=== PATIENT | male | born 1930 | race Caucasian/White ===

== ENCOUNTER 2016-12-11 09:47 | Emergency (ER) | payer MEDICARE, OTHER ==
[~2016-12-11] VITALS: Ht 172.7 cm; Wt 59.7 kg
[2016-12-11 09:49] VITALS: Ht 172.7 cm; Wt 59.7 kg
--- OUTSIDE RECORDS SUMMARY | 2016-12-11 09:51 | XMS REPORT | Referral Summary ---
Author Author [facility] Organization [facility] Address Unknown Phone Unavailable Care Team Providers Care Dining Room Coordinator Name Role Phone Chaim Roy Primary Care Physician [phone] Encounter [facility] Date(s): 03/29/16 - 03/29/16 [facility] [address] [place] [address] Discharge Diagnosis: Thrombopenia Discharge Disposition: 01-Home or Self Care Attending Physician: Keith Alcocer DO Admitting Physician: Keith Alcocer DO Vital Signs Most recent to 1 2 oldest [Reference Range]: Temperature Temporal 36.2 degC Artery [36.3-37.8 *LOW* degC] (03/29/16 9:04 AM) Peripheral Pulse 44 bpm Rate [60-100 bpm] *LOW* (03/29/16 9:04 AM) Heart Rate Monitored 59 bpm [60-100 bpm] *LOW* (03/29/16 11:15 AM) Respiratory Rate 18 br/min [14-20 br/min] (03/29/16 11:15 AM) Blood Pressure 119/55 mmHg [90-140/60-90 mmHg] (03/29/16 11:15 AM) Mean Arterial 63 mmHg 63 mmHg Pressure, Cuff (03/29/16 11:00 AM) (03/29/16 11:00 AM) SpO2 98 % (03/29/16 11:15 AM) Problem List Condition Effective Dates Status Health Status Informant Actinic keratosis Active (disorder)(Confirmed ) Senile Active ecchymosis(Confirmed ) 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, 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) Seborrheic Active keratosis(Confirmed) Solar Active degeneration(Confirm ed) Spontaneous Active ecchymosis (finding)(Confirmed) Allergies, Adverse Reactions, Alerts No Known Medication Allergies Medications allopurinol 300 mg oral tablet 300 mg 1 tabs, Oral, Daily, 0 Refill(s) Start Date: 12/06/15 Status: Ordered calcium gluconate 500 mg oral tablet 1 tabs, Oral, Daily Start Date: 07/01/14 Status: Ordered Eliquis 5 mg oral tablet 5 mg 1 tabs, Oral, BID, # 60 tabs, 0 Refill(s) Start Date: 08/16/15 Status: Ordered furosemide 20 mg oral tablet 20 mg 1 tabs, Oral, Daily, # 30 tabs, 0 Refill(s) Start Date: 08/16/15 Status: Ordered losartan 50 mg oral tablet 50 mg 1 tabs, Oral, Daily, 0 Refill(s) Start Date: 12/06/15 Status: Ordered Metoprolol Tartrate 50 mg oral tablet See Instructions, TAKE ONE-HALF TABLET BY MOUTH TWICE DAILY, # 100 tabs, 3 Refill(s), eRx: [facility], TAKE ONE-HALF TABLET BY MOUTH TWICE DAILY Start Date: 07/07/15 Status: Ordered multivitamin 1 tabs, Oral, Daily Start Date: 07/01/14 Status: Ordered pravastatin 10 mg oral tablet See Instructions, TAKE ONE TABLET BY MOUTH ONCE DAILY, # 90 tabs, 1 Refill(s), eRx: [facility], TAKE ONE TABLET BY MOUTH ONCE DAILY Start Date: 02/24/16 Status: Ordered thyroid desiccated 60 mg oral tablet 1 tabs, Oral, Daily Start Date: 07/01/14 Status: Ordered Vitamin C 500 mg oral tablet 1 tabs, Oral, Daily Start Date: 07/01/14 Status: Ordered Results Hematology Most recent to 1 oldest [Reference Range]: WBC [4.8-10.8 5.5 10*3/uL 10*3/uL] (03/29/16 9:25 AM) RBC [4.60-6.20] 3.61 *LOW* (03/29/16 9:25 AM) Hgb [14.0-18.0 10.6 gm/dL gm/dL] *LOW* (03/29/16 9:25 AM) Hct [42.0-52.0 %] 32.5 % *LOW* (03/29/16 9:25 AM) MCV [82.0-99.0 fL] 90.0 fL (03/29/16 9:25 AM) MCH [27.0-32.0 pg] 29.4 pg (03/29/16 9:25 AM) MCHC [32.0-36.0 32.6 gm/dL gm/dL] (03/29/16 9:25 AM) RDW [11.5-14.5 %] 19.9 % *HI* (03/29/16 9:25 AM) Platelet [150-400 30 10*3/uL 10*3/uL] *LOW* (03/29/16 9:25 AM) MPV [9.4-12.3 fL] 10.0 fL (03/29/16 9:25 AM) Immature 0.7 % Granulocytes (03/29/16:25 AM) [0.0-1.0 %] Neutrophils [51-75 77 % %] *HI* (03/29/16 9:25 AM) Lymphocytes [20-46 11 % %] *LOW* (03/29/16 9:25 AM) Monocytes [4-11 %] 9 % (03/29/16 9:25 AM) Eosinophils [0-4 %] 2 % (03/29/16 9:25 AM) Basophils [0-2 %] 1 % (03/29/16 9:25 AM) Neutro Absolute 4.28 10*3 [1.90-7.00 10*3] (03/29/16 9:25 AM) Lymph Absolute 0.58 10*3 [0.80-3.30 10*3] *LOW* (03/29/16 9:25 AM) Haskell Absolute 0.49 10*3 [0.30-1.00 10*3] (03/29/16 9:25 AM) Eos Absolute 0.10 10*3 [0.00-0.50 10*3] (03/29/16 9:25 AM) Baso Absolute 0.04 10*3 [0.00-0.20 10*3] (03/29/16 9:25 AM) Nucleated RBC 0.0 /100 WBC Automated [0 /100 (03/29/16 9:25 AM) WBC] Differential Scanned Slide (03/29/16 9:25 AM) Immunizations Vaccine Date Refusal Reason pneumococcal 23-polyvalent vaccine 06/07/05 pneumococcal 23-polyvalent vaccine 06/19/03 Procedures Procedure Date Related Diagnosis Body Site Biopsy Bone Marrow1 03/29/16 Procedure with Anesthesia2 03/29/16 CT R acetabular fx3 10/08/08 S/P colonoscopy4 08/16/07 tonsilectomy 1936 1auto-populated from documented surgical case 2auto-populated from documented surgical case 3[facility] - Acc 10/07/08 rec 4WNL; repeat 10 years Social History Social History Type Response Smoking Status Never smoker Assessment and Plan No data available for this section
--- OUTSIDE RECORDS SUMMARY | 2016-12-11 09:52 | XMS REPORT | Summary of Care ---
Author Author Griffin Winn M.D. Organization Unknown Address [address] [place] [phone] Phone Unavailable Care Team Providers Care Sports Photographer Name Role Phone Pepe Esparza ANAT Unavailable Unavailable Unavailable Functional Status Functional Status Health Issues* Name Dates Details Functional status health issues are not documented Status: Cognitive Status Health Issues* Name Dates Details Cognitive status health issues are not documented Status: Problems Name Dates Details Pulmonary hypertension (416.8, I27.0) Status: Active Medications Name Dates Details Medication not documented Allergies and Adverse Reactions Name Dates Details Allergy history not documented Status: Procedures Procedure Dates Details Procedures not documented Immunization Name Dates Details Immunizations not documented Social History Smoking Status* Unknown if ever smoked Vital Signs Date Test Result Details No Known Vitals to report Results Date Description Value Details 09:51 CBC w/ Auto Diff 7150 Comments: Manual differential indicated. WBC 9.3 K/uL (Better) Range: 4.5-11.0 RBC 3.48 mil/uL (Below low threshold) Range: 4.20-5.40 HGB 11.2 g/dL (Below low threshold) Range: 14.0-18.0 HCT 30.0 % (Below low threshold) Range: 42.0-53.0 MCV 86.2 fL (Better) Range: 80.0-99.0 MCH 32.1 pg (Better) Range: 27.3-32.5 MCHC 37.3 % (Above high threshold) Range: 32.0-36.0 RDW 17.9 % (Above high threshold) Range: 11.6-14.8 PLATELETS 82 K/uL (Below low threshold) Range: 150-400 MPV 9.0 fL (Better) Range: 6.0-11.0 10:10 Comprehensive Metabolic Panel 1212 SODIUM 138 mmol/L (Better) Range: 133-144 POTASSIUM 4.5 mmol/L (Better) Range: 3.5-5.1 CHLORIDE 105 mmol/L (Better) Range: 98-110 CARBON DIOXIDE 23.9 mmol/L (Better) Range: 23.0-33.0 ANION GAP 9 mmol/L (Better) Range: 6-16 BUN 38 mg/dL (Above high threshold) Range: 7-18 CREATININE, SERUM 1.39 mg/dL (Above high threshold) Range: 0.70-1.30 Comments: Please note new reference ranges effective 2015.----- BUN:CREATININE RATIO 27 (Better) EST GFR, 59 ml/min (Below low threshold) Range: >60 EST GFR, NON-AFR [facility] [place] 48 ml/min (Below low threshold) Range: >60 Comments: EST GFR is reported in ml/min per 1.73 m2 of body surface area. For -Eritrean, please multiple result by 1.2.----- GLUCOSE 104 mg/dL (Above high threshold) Range: 70-100 ALK PHOSPHATASE 88 U/L (Better) Range: 46-116 TOTAL BILIRUBIN 1.40 mg/dL (Above high threshold) Range: 0.20-1.00 AST 22 U/L (Better) Range: 8-35 ALT 26 U/L (Better) Range: 16-63 Comments: Please note new reference ranges. Effective 10/22/2014.----- ALBUMIN 3.6 g/dL (Better) Range: 3.4-5.0 TOTAL PROTEIN 6.3 g/dL (Below low threshold) Range: 6.4-8.2 A/G RATIO 1.3 units (Better) Range: 1.0-1.8 CALCIUM 8.5 mg/dL (Better) Range: 8.5-10.1 10:18 Manual Differential 7400 SEGS 79 % (Better) Range: 37-80 BANDS 2 % (Better) Range: 0-7 LYMPH 12 % (Below low threshold) Range: 13-50 MONO 4 % (Better) Range: 0-12 EOSIN 1 % (Better) Range: 0-7 BASO 0 % (Better) Range: 0-3 OFE LYMPH 0 % (Better) Range: 0-0 META 1 % (Above high threshold) Range: 0-0 MYELO 1 % (Above high threshold) Range: 0-0 PRO 0 % (Better) Range: 0-0 BLAST 0 % (Better) Range: 0-0 NUC RBC 0 /100 WBC (Better) Range: 0-0 SMUDGE 0 /100 WBC (Better) PLATELET Decreased (Abnormal) Range: Adequate ANISO Slight (Better) SPHERO Present (Better) 10:49 ECG/ EKG CP - Electro CardioGram ECG/ EKG Cardiology Read ECG waiting for interpretation, click ImageLink button to view/confirm the study. (Better) 11:12 THYROID STIM. HORMONE 3602 THYROID STIM. HORMONE 0.212 uIU/mL (Below low threshold) Range: 0.550- 4.780 Comments: Verified by Repeat AnalysisPLEASE NOTE: Patients undergoing fuorescein dye angiography within the last 72 hours can produce falsely depressed TSH values with current methodology.\[id number]\No established reference ranges for infants and children <2 years of ageNo established reference ranges for infants and children <2 years of age----- 11:23 XRay CHEST-PA & LAT Comments: Exam Date: 02/11/2015 11: 12Dictation Date: 02/11/2015 11:23 X CHEST PA & LAT (Better) Plan of Care Planned Observations* Name Dates Details Planned Goals not documented Goal Planned Encounters* Appointment; Provider: Griffin Winn On 13:00 Instructions * Instructions not documented Encounters No Encounter data documented Encounter Diagnosis: Problem not documented On
--- OUTSIDE RECORDS SUMMARY | 2016-12-11 09:52 | XMS REPORT | Summary of Care ---
Author Author Manuela Morrison, Donis Organization Unknown Address Unknown Phone Unavailable Care Team Providers Care Flower Pot Press Operator Name Role Phone Yudi Yarbrough Unavailable Hannah Roy M.D., Donis Roy M.D., Aaron Unavailable Unavailable Tatum Morrison, Michelle Unavailable Unavailable Donis Roy Unavailable Unavailable Unavailable Unavailable Functional Status Name Dates Details Functional status health issues are not documented Status: Name Dates Details Cognitive status health issues are not documented Status: Problems Name Dates Details Left-sided epistaxis (784.7, R04.0) Status: Active Right-sided epistaxis (784.7, R04.0) Status: Active Hodgkin disease (201.90, C81.90) Status: Active Low back pain (724.2, M54.5) Status: Active Anemia (285.9, D64.9) Status: Active Atherosclerosis (440.9, I70.90) Status: Active Thrombocytopenia (287.5, D69.6) Status: Active Insomnia (780.52, G47.00) Status: Active Screening PSA (prostate specific antigen) (V76.44, Z12.5) Status: Active Congestive heart failure (CHF) (428.0, I50.9) Status: Active Atrial fibrillation (427.31, I48.91) Status: Active Chronic kidney disease (585.9, N18.9) Status: Active Hypertension (401.9, I10) Status: Active Swelling of face (784.2, R22.0) Status: Active Swelling of hand (729.81, M79.89) Status: Active Fatigue (780.79, R53.83) Status: Active Dyspnea (786.09, R06.00) Status: Active Edema of face (782.3, R60.0) Status: Active Arm edema (782.3, R60.0) Status: Active 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, Z95.0) Status: Active Thyroid disease (246.9, E07.9) Status: Active Left-sided chest wall pain (786.52, R07.89) Status: Active Chest pain (786.50, R07.9) Status: Active Edema extremities (782.3, R60.0) Status: Active Hypocalcemia (275.41, E83.51) Status: Active Diarrhea (787.91, R19.7) Status: Active Fever (780.60, R50.9) Status: Active Hypocalcemia (275.41, E83.51) Status: Active Gout (274.9, M10.9) Status: Active Upper GI bleed (578.9, K92.2) Status: Active Bilateral pleural effusion (511.9, J90) Status: Active Obstructive sleep apnea syndrome, severe (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 Quantity: 60 * Start Active [place] Thyroid 60 MG Oral Tablet TAKE TWO AND ONE-HALF TABLETS BY MOUTH DAILY * Quantity: 180 Refills: 11 Donis Roy M.D. * Start 23-Mar-2016 Active Pravastatin Sodium 10 MG Oral Tablet TAKE 1 TABLET DAILY. * Refills: 0 * Start Active Multi Vitamin Mens Oral Tablet TAKE 1 TABLET DAILY. * Refills: 0 Griffin Winn M.D. * Start Active Losartan Potassium 50 MG Oral Tablet TAKE 1 TABLET DAILY. * Quantity: 90 Refills: 3 Donis Roy M.D. * Start 11-Jan-2016 Active Allopurinol 300 MG Oral Tablet Take 1 1/2 tabs daily. * Quantity: 135 Refills: 3 Aaron Roy M.D. * Start 11-Jan-2016 Active Eliquis 5 MG Oral Tablet Take twice daily * Quantity: 60 Refills: 6 Donis Roy M.D. * Start 11-Jan-2016 Active Furosemide 20 MG Oral Tablet Take 1-2 tabs po q day as needed * Quantity: 60 Refills: 3 Manuela M.DDonis Collins * Start 11-Jan-2016 Active Calcium Carbonate 500 (200 Ca) MG Oral Wafer Take 2 daily * Refills: 0 Shacklefords M.DDonis Collins * Start 11-Jan-2016 Active Supplies Auto CPAP 8-12 cm H2O Permanent use Dx:G47.33 AirSense 10 with heated tubing/ humidity mask headgear filter H2O chamber tubing chinstrap * Quantity: 1 Refills: 0 Andres P.A., Yudi * Start Active Supplies Resmed S10 AirCurve 20/15 cm H2O, Permanent use, 327.23, Heated humidity, mask, headgear, filters, heated tubing, water chamber, chinstrap * Quantity: 1 Refills: 0 Andres P.A., Yudi * Start 03-May-2016 Active Pantoprazole Sodium 40 MG Oral Tablet Delayed Release TAKE 1 TABLET BY MOUTH DAILY * Quantity: 30 Refills: 11 Manuela M.D.Donis * Start 18-Aug-2016 Active Imodium A-D 2 MG Oral Tablet TAKE 2 TABLETS INITIALLY, FOLLOWED BY 1 TABLET AFTER EACH LOOSE BOWEL MOVEMENT. DO NOT EXCEED 8 TABLETS/DAY. * Refills: 0 Shacklefords M.Donis Bermudez * Start 18-Aug-2016 Active Acetaminophen 325 MG Oral Tablet Take 2 tabs po every 4 hours PRN * Refills: 0 Manuela M.DDonis Collins * Start 18-Aug-2016 Active Allergies and Adverse Reactions Name Dates Details Flecainide Acetate TABS (Allergy) Status: Active Past Medical History Name Dates Details History of aortic valve stenosis (V12.59, Z86.79) Status: Resolved History of fracture of left hip (V15.51, Z87.81) Status: Resolved History of malignant neoplasm (V10.90, Z85.9) Status: Resolved 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, 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: Resolved History of shortness of breath (V13.89, Z87.898) Status: Resolved Procedures Procedure Dates Details History of Hernia Repair History of Heart Valve Replacement History of Hip Repair History of Colonoscopy History of Pacemaker Placement History of Esophagogastroduodenoscopy URIC ACID 1155 Ordered: 24-Jul-2016 Comprehensive Metabolic Panel 1212 Ordered: 05-Sep-2016 URIC ACID 1155 Ordered: 05-Sep-2016 Immunization Name Dates Details Fluzone High-Dose SUSP on: 18-Jul-2016 Fluzone High-Dose 0.5 ML Intramuscular Suspension Prefilled Syringe Lot #: [id number] on: 18-Jul-2016 Family History Name Dates Details Family history of sleep apnea (V19.8, Z82.0) Status: Active Name Dates Details Family history of lung cancer (V16.1, Z80.1) Status: Active Name Dates Details Family history of cerebrovascular accident (CVA) (V17.1, Z82.3) Status: Active Name Dates Details Family history of Bone cancer (170.9, C41.9) Status: Active Social History Name Dates Details - Status: Name Dates Details Never smoker Vital Signs Date Test Result Details 05-Sep-2016 10:07 BP Systolic 98 mm[Hg] Status: Comments: Location: LUE; Position: Sitting BP Diastolic 58 mm[Hg] Status: Comments: Location: LUE; Position: Sitting Temperature 98.2 f Status: Heart Rate 79 /min Status: Comments: Location: ; Weight 134 lb Status: Physical Findings 96 Status: Comments: O2 Saturation Body Mass Index Calculated 21.63 kg/m2 Status: Body Surface Area Calculated 1.69 m2 Status: 25-Aug-2016 09:33 BP Systolic 128 mm[Hg] Status: Comments: Location: ; Position: BP Diastolic 84 mm[Hg] Status: Comments: Location: ; Position: Heart Rate 74 /min Status: Comments: Location: ; Height 66 in Status: Weight 127 lb Status: Physical Findings 99 Status: Comments: O2 Saturation Body Mass Index Calculated 20.5 kg/m2 Status: Body Surface Area Calculated 1.65 m2 Status: 22-Aug-2016 11:19 BP Systolic 100 mm[Hg] Status: Comments: Location: ; Position: BP Diastolic 58 mm[Hg] Status: Comments: Location: ; Position: Heart Rate 62 /min Status: Comments: Location: ; Weight 125 lb Status: Physical Findings 93 Status: Comments: O2 Saturation Body Mass Index Calculated 20.18 kg/m2 Status: Body Surface Area Calculated 1.64 m2 Status: Results Date Description Value Details 08-Aug-2016 14:47 CBC w/ Manual Diff 7225 Comments: Critical result called to Allison by Lakshmi Cordova on 08/08/2016 at 2:51 PM (PLT)ORDER IN BOOK UNDER JULY WBC 8.2 K/uL Range: 4.5-11.0 RBC 3.44 mil/uL (Below low threshold) Range: 4.20-5.40 HGB 11.3 g/dL (Below low threshold) Range: 14.0-18.0 HCT 33.7 % (Below low threshold) Range: 42.0-53.0 MCV 97.9 fL Range: 80.0-99.0 MCH 32.8 pg (Above high threshold) Range: 27.3-32.5 MCHC 33.5 % Range: 32.0-36.0 RDW 21.0 % (Above high threshold) Range: 11.6-14.8 PLATELETS 31 K/uL (Low alert) Range: 150-400 MPV 8.2 fL Range: 6.0-11.0 NEUTRO 7.3 K/uL (Above high threshold) Range: 2.0-6.9 SEGS 91 % (Above high threshold) Range: 37-80 BANDS 2 % Range: 0-7 LYMPH 2 % (Below low threshold) Range: 13-50 MONO 5 % Range: 0-12 EOSIN 0 % Range: 0-7 BASO 0 % Range: 0-3 OFE LYMPH 0 % Range: 0-0 META 0 % Range: 0-0 MYELO 0 % Range: 0-0 PRO 0 % Range: 0-0 BLAST 0 % Range: 0-0 NUC RBC 0 /100 WBC Range: 0-0 SMUDGE 0 /100 WBC PLATELET Decreased (Abnormal) Range: Adequate ANISO Mod 22-Aug-2016 14:25 BASIC METABOLIC PROFILE 1210 SODIUM 139 mmol/L Range: 133-144 POTASSIUM 3.8 mmol/L Range: 3.5-5.1 CHLORIDE 101 mmol/L Range: 98-110 CARBON DIOXIDE 31.9 mmol/L Range: 23.0-33.0 ANION GAP 6 mmol/L Range: 6-16 BUN 48 mg/dL (Above high threshold) Range: 7-18 CREATININE, SERUM 1.39 mg/dL (Above high threshold) Range: 0.70-1.30 EST GFR, 58 ml/min (Below low threshold) Range: >60 EST GFR, NON-AFR [place] 48 ml/min (Below low threshold) Range: >60 Comments: EST GFR is reported in ml/min per 1.73 m2 of body surface area. ----- BUN:CREATININE RATIO 35 GLUCOSE 103 mg/dL (Above high threshold) Range: 70-100 CALCIUM 9.0 mg/dL Range: 8.5-10.1 14:25 URIC ACID 1155 URIC ACID 4.3 mg/dL Range: 2.6-7.2 14:42 Vitamin D, 25 - Hydroxy 3111 VITAMIN D, 25-HYDROXY 35 ng/mL Range: 30-100 15:27 CBC w/ Manual Diff 7225 Comments: ORDER IN BOOK UNDER AUGUST - MAKE SURE CALCIUM GETS ORDERED FOR 08/29/16 - ORDER IS BEING FAXED WBC 8.0 K/uL Range: 4.5-11.0 RBC 3.38 mil/uL (Below low threshold) Range: 4.20-5.40 HGB 10.8 g/dL (Below low threshold) Range: 14.0-18.0 HCT 31.9 % (Below low threshold) Range: 42.0-53.0 MCV 94.3 fL Range: 80.0-99.0 MCH 31.9 pg Range: 27.3-32.5 MCHC 33.8 % Range: 32.0-36.0 RDW 20.8 % (Above high threshold) Range: 11.6-14.8 PLATELETS 95 K/uL (Below low threshold) Range: 150-400 MPV 8.3 fL Range: 6.0-11.0 NEUTRO 6.1 K/uL Range: 2.0-6.9 SEGS 57 % Range: 37-80 BANDS 5 % Range: 0-7 LYMPH 22 % Range: 13-50 MONO 8 % Range: 0-12 EOSIN 3 % Range: 0-7 BASO 0 % Range: 0-3 OFE LYMPH 0 % Range: 0-0 META 3 % (Above high threshold) Range: 0-0 MYELO 2 % (Above high threshold) Range: 0-0 PRO 0 % Range: 0-0 BLAST 0 % Range: 0-0 NUC RBC 0 /100 WBC Range: 0-0 SMUDGE 0 /100 WBC PLATELET Decreased (Abnormal) Range: Adequate ANISO Marked HYPOCHRO Mod POLYCHRO Slight OVAL Present TEAR Present Plan of Care Name Dates Details Planned Observations Comprehensive Metabolic Panel 1212 On 02-Nov-2016 Intent URIC ACID 1155 On 02-Nov-2016 Intent Planned Goals not documented Planned Encounters Appointment; Provider: Donis Roy M.D. On 07-Nov-2016 10:00 Appointment; Provider: Tracy Alba A.P.R.N. On 10-Oct-2016 13:00 Instructions Name Dates Details Instructions not documented Encounters Appointment; Donis Roy M.D. Encounter Diagnosis: Problem not documented On 05-Sep-2016 10:00 Appointment; Yudi Campos P.A. Encounter Diagnosis: Problem not documented On 25-Aug-2016 09:30 Appointment; Donis Roy M.D. Encounter Diagnosis: Problem not documented On 23-Aug-2016 10:00 Appointment; Donis Roy M.D. Encounter Diagnosis: Problem not documented On 22-Aug-2016 11:00 Appointment; Donis Roy M.D. Encounter Diagnosis: Problem not documented On 24-Jul-2016 10:45 Appointment; Donis Roy M.D. Encounter Diagnosis: Problem not documented On 18-Jul-2016 07:45 Appointment; Griffin Winn M.D. Encounter Diagnosis: Problem not documented On 12-Jul-2016 13:30 Appointment; Griffin Winn M.D. Encounter Diagnosis: Problem not documented On 03-May-2016 13:30 Appointment; Aaron Roy M.D. Encounter Diagnosis: Problem not documented On 12-Apr-2016 10:30 Appointment; Aaron Roy M.D. Encounter Diagnosis: Problem not documented On 13-Mar-2016 15:30 Appointment; Donis Roy M.D. Encounter Diagnosis: Problem not documented On 14:45 Appointment; Griffin Winn M.D. Encounter Diagnosis: Problem not documented On 15:00 Appointment; Griffin Winn M.D. Encounter Diagnosis: Problem not documented On 15:15 Appointment; Donis Roy M.D. Encounter Diagnosis: Problem not documented On 11-Jan-2016 10:45 Appointment; Josep Dao M.D. Encounter Diagnosis: Problem not documented On 15-Nov-2015 14:45 Appointment; Griffin Winn M.D. Encounter Diagnosis: Problem not documented On 15-Apr-2015 10:30 Appointment; Griffin Winn M.D. Encounter Diagnosis: Problem not documented On 13:00
--- OUTSIDE RECORDS SUMMARY | 2016-12-11 09:52 | XMS REPORT | Summary of Care ---
Author Author Griffin Winn M.D. Organization Unknown Address [address], [place] [id number] Phone Unavailable Care Team Providers Care Translator Name Role Phone Tatum Morrison, O Unavailable Unavailable Pepe Esparza PP Unavailable Unavailable Unavailable Functional Status Functional Status Health Issues* Name Dates Details Functional status health issues are not documented Status: Cognitive Status Health Issues* Name Dates Details Cognitive status health issues are not documented Status: Problems Name Dates Details Pulmonary hypertension (416.8, I27.0) Status: Active Dyspnea (786.09, R06.00) Status: Active Medications Name Dates Details Losartan Potassium-HCTZ 50-12.5 MG Oral Tablet TAKE 1 TABLET DAILY. Griffin Winn M.D.* Started ActiveMetoprolol Tartrate 50 MG Oral Tablet TAKE 1/2 TABLET TWICE DAILY. * Refills: 0 Griffin Winn M.D.* Started ActiveArmour Thyroid 60 MG Oral Tablet TAKE 1 TABLET DAILY. * Refills: 0 Griffin Winn M.D.* Started ActivePravastatin Sodium 10 MG Oral Tablet TAKE 1 TABLET DAILY. * Refills: 0 Griffin Winn M.D.* Started ActiveAspirin 81 MG Oral Tablet TAKE ONE TABLET EVERY TWO DAYS * Refills: 0 Griffin Winn M.D.* Started ActiveMulti Vitamin Mens Oral Tablet TAKE 1 TABLET DAILY. * Refills: 0 Griffin Winn M.D.* Started Active Allergies and Adverse Reactions Name Dates Details No Known Drug Allergies Status: Active Past Medical History Name Dates Details History of malignant neoplasm (V10.90, Z85.9) Status: Resolved Procedures Procedure Dates Details History of Heart Valve Replacement History of Pacemaker Placement History of Hip Repair History of Hernia Repair Procedures not documented Immunization Name Dates Details Immunizations not documented Family History Mother* Name Dates Details Family history of lung cancer (V16.1, Z80.1) Status: Active Social History Smoking Status* Unknown if ever smoked Vital Signs Date Test Result Details 12:51 BP Systolic 136 mm[Hg] Status: BP Diastolic 82 mm[Hg] Status: Heart Rate 88 /min Status: Weight 133 lb Status: Height 66 in Status: O2 SAT 98 % Status: Body Mass Index Calculated 21.47 kg/m2 Status: Body Surface Area Calculated 1.68 m2 Status: Results Date Description Value Details 09:51 CBC [...] low threshold) Range: >60 EST GFR, NON-AFR [place] 48 ml/min (Below low threshold) Range: >60 Comments: EST GFR is reported in ml/min per 1.73 m2 of body surface area. For -Kittitian, please multiple result by 1.2.----- GLUCOSE 104 [...] 11:23 X CHEST PA & LAT (Better) 14:23 CT CHEST WITHOUT IV CONTRAST Comments: Exam Date: 02/11/2015 13: 39Dictation Date: 02/11/2015 14:23 XC CHEST (Better) Plan of Care Planned Observations* Name Dates Details Planned Goals not documented Goal Planned Encounters* Appointment; Provider: Griffin Winn On 15-Apr-2015 10:30 Instructions * Instructions not documented Encounters Appointment; Griffin Winn Encounter Diagnosis: Problem not documented On 13:00
--- OUTSIDE RECORDS SUMMARY | 2016-12-11 09:52 | XMS REPORT | Summary of Care ---
Author Author Manuela Morrison, Donis Organization Unknown Address Unknown Phone Unavailable Care Team Providers Care Manager Diversity Name Role Phone Yudi Yarbrough Unavailable Hannah [...] Low back pain (724.2, M54.5) Status: Active Atherosclerosis (440.9, I70.90) Status: Active Insomnia (780.52, G47.00) Status: Active Screening PSA (prostate specific antigen) (V76.44, Z12.5) Status: Active Congestive heart failure (CHF) (428.0, I50.9) Status: Active Hypertension (401.9, I10) Status: Active [...] Status: Active Hypocalcemia (275.41, E83.51) Status: Active Upper GI bleed (578.9, K92.2) Status: Active Bilateral pleural effusion (511.9, J90) Status: Active Restless leg syndrome (333.94, G25.81) Status: Active Chronic cough (786.2, R05) Status: Active Acid reflux (530.81, K21.9) Status: Active Thrombocytopenia (287.5, D69.6) Status: Active Atrial fibrillation (427.31, I48.91) Status: Active Obstructive sleep apnea syndrome, 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 Quantity: 60 * Start Active [place] Thyroid 60 MG Oral Tablet TAKE TWO [...] tabs daily. * Quantity: 135 Refills: 3 Manuela Morrison, Aaron * Start 11-Jan-2016 Active Furosemide 20 MG Oral Tablet TAKE ONE TO TWO TABLETS BY MOUTH ONCE DAILY NEEDED * Quantity: 60 Refills: 11 Manuela M.D.Donis * Start 28-Oct-2016 Active Calcium Carbonate 500 (200 Ca) MG Oral Wafer Take 2 daily * Refills: 0 Donis Roy M.D. * Start 11-Jan-2016 Active Supplies Auto CPAP 8-12 cm H2O Permanent use Dx:G47.33 AirSense 10 with heated tubing/ humidity mask headgear filter H2O chamber tubing chinstrap * Quantity: 1 Refills: 0 Andres P.A.Yudi * Start Active Supplies Resmed S10 AirCurve 20/15 cm H2O, Permanent use, 327.23, Heated humidity, mask, headgear, filters, heated tubing, water chamber, chinstrap * Quantity: 1 Refills: 0 Andres P.A.Yudi * Start 03-May-2016 Active Pantoprazole Sodium 40 MG Oral Tablet Delayed Release TAKE 1 TABLET BY MOUTH DAILY * Quantity: 30 Refills: 11 [place] M.Michelle.Donis * Start 18-Aug-2016 Active Imodium A-D 2 MG Oral Tablet TAKE 2 TABLETS INITIALLY, FOLLOWED BY 1 TABLET AFTER EACH LOOSE BOWEL MOVEMENT. DO NOT EXCEED 8 TABLETS/DAY. * Refills: 0 Donis Roy M.D. * Start 18-Aug-2016 Active Acetaminophen 325 MG Oral Tablet Take 2 tabs po every 4 hours PRN * Refills: 0 Donis Roy M.D. * Start 18-Aug-2016 Active Lidocaine HCl - 2 % External Gel Apply QID PRN * Quantity: 1 Refills: 2 [place] M.D.Donis * Start 09-Oct-2016 Active 30 ML Tube Nystatin 289519 UNIT/ML Mouth/Throat Suspension SWISH AND SWALLOW 5ML 4 TIMES DAILY. * Quantity: 200 Refills: 0 Manuela Rucker.Donis Bermudez * Start 18-Oct-2016 Active Sulfamethoxazole-Trimethoprim 800-160 MG Oral Tablet TAKE 1 TABLET TWICE DAILY. * Quantity: 10 Refills: 0 Manuela M.Donis Bermudez * Start 07-Nov-2016 Active Allergies and Adverse Reactions Name Dates [...] History of Pacemaker Placement History of Esophagogastroduodenoscopy CBC w/ Auto Diff 7150 Ordered: 07-Nov-2016 Comprehensive Metabolic Panel 1212 Ordered: 07-Nov-2016 URIC ACID 1155 Ordered: 07-Nov-2016 Immunization Name Dates Details Fluzone High-Dose SUSP on: 18-Jul-2016 Fluzone High-Dose 0.5 ML Intramuscular Suspension Prefilled Syringe Lot #: [id number] on: 18-Jul-2016 Family History Name Dates Details [...] smoker Vital Signs Date Test Result Details 07-Nov-2016 10:04 BP Systolic 100 mm[Hg] Status: Comments: Location: RUE; Position: Sitting BP Diastolic 64 mm[Hg] Status: Comments: Location: RUE; Position: Sitting Temperature 98.1 f Status: Comments: Method: Tympanic Heart Rate 85 /min Status: Comments: Location: ; Height 66 in Status: Weight 128.4375 lb Status: Physical Findings 100 Status: Comments: O2 Saturation Body Mass Index Calculated 20.73 kg/m2 Status: Body Surface Area Calculated 1.66 m2 Status: 18-Oct-2016 08:15 BP Systolic 100 mm[Hg] Status: Comments: Location: LUE; Position: Sitting BP Diastolic 60 mm[Hg] Status: Comments: Location: LUE; Position: Sitting Temperature 97.9 f Status: Comments: Method: Tympanic Heart Rate 86 /min Status: Comments: Location: ; Weight 129 lb Status: Physical Findings 98 Status: Comments: O2 Saturation Body Mass Index Calculated 20.82 kg/m2 Status: Body Surface Area Calculated 1.66 m2 Status: Results Date Description Value Details 17-Oct-2016 14:25 CBC w/ Auto Diff 7150 Comments: Manual differential indicated. WBC 7.2 K/uL Range: 4.5-11.0 RBC 2.70 mil/uL (Below low threshold) Range: 4.20-5.40 HGB 8.4 g/dL (Below low threshold) Range: 14.0-18.0 HCT 25.6 % (Below low threshold) Range: 42.0-53.0 MCV 94.8 fL Range: 80.0-99.0 MCH 30.9 pg Range: 27.3-32.5 MCHC 32.6 % Range: 32.0-36.0 RDW 20.4 % (Above high threshold) Range: 11.6-14.8 PLATELETS 72 K/uL (Below low threshold) Range: 150-400 MPV 7.0 fL Range: 6.0-11.0 14:54 Manual Differential 7400 SEGS 83 % (Above high threshold) Range: 37-80 BANDS 3 % Range: 0-7 LYMPH 7 % (Below low threshold) Range: 13-50 MONO 4 % Range: 0-12 EOSIN 3 % Range: 0-7 BASO 0 % Range: 0-3 OFE LYMPH 0 % Range: 0-0 META 0 % Range: 0-0 MYELO 0 % Range: 0-0 PRO 0 % Range: 0-0 BLAST 0 % Range: 0-0 NUC RBC 0 /100 WBC Range: 0-0 SMUDGE 0 /100 WBC PLATELET Decreased (Abnormal) Range: Adequate ANISO Mod MACROCYT Slight HYPOCHRO Slight POLYCHRO Slight OVAL Present 24-Oct-2016 14:31 Comprehensive Metabolic Panel 1212 SODIUM 137 mmol/L Range: 133-144 POTASSIUM 4.3 mmol/L Range: 3.5-5.1 CHLORIDE 104 mmol/L Range: 98-110 CARBON DIOXIDE 21.9 mmol/L (Below low threshold) Range: 23.0-33.0 ANION GAP 11 mmol/L Range: 6-16 BUN 28 mg/dL (Above high threshold) Range: 7-18 CREATININE, SERUM 1.10 mg/dL Range: 0.70-1.30 BUN:CREATININE RATIO 25 EST GFR, >60 ml/min Range: >60 EST GFR, NON-AFR SRI LANKAN >60 ml/min Range: >60 Comments: EST GFR is reported in ml/min per 1.73 m2 of body surface area. ----- GLUCOSE 129 mg/dL (Above high threshold) Range: 70-100 ALK PHOSPHATASE 146 U/L (Above high threshold) Range: 46-116 TOTAL BILIRUBIN 1.70 mg/dL (Above high threshold) Range: 0.20-1.00 AST 30 U/L Range: 8-35 ALT 23 U/L Range: 16-63 ALBUMIN 3.1 g/dL (Below low threshold) Range: 3.4-5.0 TOTAL PROTEIN 6.3 g/dL (Below low threshold) Range: 6.4-8.2 A/G RATIO 1.0 units Range: 1.0-1.8 CALCIUM 8.1 mg/dL (Below low threshold) Range: 8.5-10.1 14:31 URIC ACID 1155 URIC ACID 3.3 mg/dL Range: 2.6-7.2 30-Oct-2016 14:23 CBC w/ Auto Diff 7150 WBC 4.5 K/uL Range: 4.5-11.0 RBC 2.57 mil/uL (Below low threshold) Range: 4.20-5.40 HGB 8.3 g/dL (Below low threshold) Range: 14.0-18.0 HCT 24.7 % (Below low threshold) Range: 42.0-53.0 MCV 96.0 fL Range: 80.0-99.0 MCH 32.4 pg Range: 27.3-32.5 MCHC 33.7 % Range: 32.0-36.0 RDW 21.0 % (Above high threshold) Range: 11.6-14.8 PLATELETS 58 K/uL (Below low threshold) Range: 150-400 MPV 7.9 fL Range: 6.0-11.0 %NEUTRO 75.1 % Range: 37.0-80.0 %LYMPHS 14.7 % Range: 13.0-50.0 %MONO 6.4 % Range: 0.0-12.0 %EOS 2.0 % Range: 0.0-7.0 %BASO 0.6 % Range: 0.0-2.5 %BAY 1.3 % Range: 0.0-5.0 NEUTRO 3.4 K/uL Range: 2.0-6.9 LYMPHS 0.7 K/uL Range: 0.6-3.4 MONOS 0.3 K/uL Range: 0.0-0.9 EOS 0.1 K/uL Range: 0.0-0.7 BASO 0.0 K/uL Range: 0.0-0.2 07-Nov-2016 11:03 Urinalysis, reflex to Micro and Culture ([facility]) 1125 Comments: Testing performed by [facility], [address], [place] [address] Testing performed by [facility], [address], [place] [address] pH 6.0 Range: 5.0-7.5 SP GRAVITY 1.015 Range: 1.010-1.030 APPEARANCE Cloudy (Abnormal) Range: Clear COLOR Other (Abnormal) Range: Straw-Yellow PROTEIN 30 mg/dL (Abnormal) Range: Negative-Trace GLUCOSE Negative mg/dL Range: Negative KETONES Negative mg/dL Range: Negative BILIRUBIN Negative Range: Negative BLOOD 2+ (Abnormal) Range: Negative UROBIL 0.2 EU/dL Range: 0.2-1.0 NITRITE Negative Range: Negative LEUKOCYTES 3+ (Abnormal) Range: Negative 13:47 Urine Microscopic UMIC WBC 21-50 /HPF (Abnormal) Range: 0-5 Comments: Specimen referred to Reference Lab for Culture----- RBC 3-5 /HPF (Abnormal) Range: 0-2 BACTERIA 1+ /HPF (Abnormal) Range: Negative-Trace EPITH 0-2 /HPF Range: 0-10 14:17 CBC w/ Auto Diff 7150 Comments: Manual differential indicated. WBC 6.0 K/uL Range: 4.5-11.0 RBC 2.97 mil/uL (Below low threshold) Range: 4.20-5.40 HGB 9.7 g/dL (Below low threshold) Range: 14.0-18.0 Comments: Variance from previous testing noted.----- HCT 29.3 % (Below low threshold) Range: 42.0-53.0 MCV 98.5 fL Range: 80.0-99.0 MCH 32.5 pg Range: 27.3-32.5 MCHC 33.0 % Range: 32.0-36.0 RDW 21.0 % (Above high threshold) Range: 11.6-14.8 PLATELETS 61 K/uL (Below low threshold) Range: 150-400 MPV 8.2 fL Range: 6.0-11.0 14:46 Manual Differential 7400 SEGS 79 % Range: 37-80 BANDS 2 % Range: 0-7 LYMPH 10 % (Below low threshold) Range: 13-50 MONO 7 % Range: 0-12 EOSIN 2 % Range: 0-7 BASO 0 % Range: 0-3 OFE LYMPH 0 % Range: 0-0 META 0 % Range: 0-0 MYELO 0 % Range: 0-0 PRO 0 % Range: 0-0 BLAST 0 % Range: 0-0 NUC RBC 0 /100 WBC Range: 0-0 SMUDGE 0 /100 WBC PLATELET Decreased (Abnormal) Range: Adequate ANISO Mod MACROCYT Slight HYPOCHRO Slight POLYCHRO Slight OVAL Present 10-Nov-2016 09:26 URINE CULTURE [id number] Comments: VISup performed at: [facility], [address], Life Claims Examiner: Cameron Beaulieu D.O., MPHQuest Collection Date/Time: [id number] Results Received Date/Time: [id number] Reported Date/Time: FASTING:NOQuest performed at: [facility], [address] [place] [address], [address], Life Claims Examiner: Cameron Beaulieu D.O., MPHQuest Collection Date/Time: [id number] Results Received Date/Time: [id number] Reported Date/Time: FASTING:NO CULTURE, URINE, ROUTINE SEE NOTE (Abnormal) Comments: CULTURE, URINE, ROUTINE MICRO NUMBER: [id number] TEST STATUS: FINAL SPECIMEN SOURCE : URINE SPECIMEN QUALITY: ADEQUATE RESULT: 50,000-100,000 CFU/ mL of Klebsiella oxytoca COMMENT: Additional organism(s) less than 10 ,000 CFU/mL isolated. These organisms, commonly found on external and internal genitalia, are considered colonizers. No further testing performed. K.oxytoca INT AARON AMOX/CLAVULANATE S <=2 AMPICILLIN R >= 32 AMP/SULBACTAM I 16 CEFAZOLIN R 8 1 CEFEPIME S <=1 CEFTRIAXONE S <=1 CIPROFLOXACIN S <=0.25 ERTAPENEM S <=0.5 GENTAMICIN S <=1 IMIPENEM S <=0.25 LEVOFLOXACIN S <=0.12 NITROFURANTOIN I 64 PIP/ TAZOBACTAM S <=4 TOBRAMYCIN S <=1 TRIMETHOPRIM/ SULFA S <=20S=Susceptible I=Intermediate R=Resistant *=Not TestedNR= Not Reported NN=See Therapy CommentsTHERAPY COMMENTS Note 1: ORAL therapy: A cefazolin AARON of < 32 predicts susceptibility to the oral agents cefaclor, cefdinir, cefpodoxime, cefprozil, cefuroxime, cephalexin, and loracarbef when used for therapy of uncomplicated UTIs due to E. coli, K. pneumoniae, and P. mirabilis. PARENTERAL therapy: A cefazolin AARON of > 8 indicates resistance to parenteral cefazolin. An alternate test method must be performed to to confirm susceptibility to parenteral cefazolin.[KS]----- Plan of Care Name Dates Details Planned Observations Planned Goals not documented Planned Encounters Appointment; Provider: Donis Roy M.D. On 09:00 Appointment; Provider: Michelet Oropeza M.D. On 15-Nov-2016 11:00 Instructions Name Dates Details Instructions not documented Encounters Appointment; Donis Roy M.D. Encounter Diagnosis: Problem not documented On 07-Nov-2016 10:00 Appointment; Donis Roy M.D. Encounter Diagnosis: Problem not documented On 18-Oct-2016 08:15 Appointment; Donis Roy M.D. Encounter Diagnosis: Problem not documented On 09-Oct-2016 10:30 Appointment; Michelet Oropeza M.D. Encounter Diagnosis: Problem not documented On 28-Sep-2016 11:30 Appointment; Donis Roy M.D. Encounter Diagnosis: Problem [...]
--- OUTSIDE RECORDS SUMMARY | 2016-12-11 09:52 | XMS REPORT ---
Author Author Eden Pyle Organization [employer] Address Unknown Phone Unavailable Care Team Providers Care Wheat Buyer Name Role Phone Eden Pyle CP Unavailable Allergies, Adverse Reactions, Alerts Substance Reaction Event Type N.K.D.A. 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 Problem S/P Aortic Valve Replacement V43.3 Active Problem Hypertension 401.9 Active Medications Medication Code System Code Instructions Start Date End Date Status Dosage Metoprolol Tartrate [facility] [address]-11 50 MG Orally Twice a day 1/ 2 tab Multivitamins [facility] [address] Orally Once a day 1 tablet Calcium [facility] [address]-63 Orally Twice a day 1 tablet Aspirin [facility] [address]-76 81 MG Orally qod 1 tablet Vitamin B Complex [facility] 97830-[address]304 Orally qd 1 tab Losartan Potassium-HCTZ [facility] [address]-81 50-12.5 MG Orally Once a day 1 tablet [place] Thyroid [facility] [address]-46 60 MG Orally 2 & 1/2 tab qod 2 tabs qod Pravastatin Sodium [facility] [address]-79 10mg Orally Once a day 1 tablet Procedures Procedure Coding System Code Date Ofc Interrogation PM, Staff CPT-4 23418 Mar 31, 2015 Office Visit, Est Pt., Level 3 CPT-4 08867 Mar 31, 2015 Vital Signs Date/Time: Mar 31, 2015 BMI 21.49 Index Weight 137.2 lbs Height 5 ft 7 in in Cardiac Monitoring Heart Rate 80 /min Oximetry 98 % Blood Pressure Diastolic 80 mm Hg Blood Pressure Systolic 120 mm Hg Results No Known Results Summary Purpose [employer] Submission
--- OUTSIDE RECORDS SUMMARY | 2016-12-11 09:52 | XMS REPORT | Summary of Care ---
Author Author Aaron Roy M.D. Organization Unknown Address Unknown Phone Unavailable Care Team Providers Care School Athletic Director Name Role Phone Yudi Yarbrough Unavailable Donis Oviedo M.D. Unavailable Aaron Oviedo M.D. 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 Quantity: 60 * Start Active [place] Thyroid 60 MG Oral Tablet TAKE TWO [...] Aaron Roy M.D. * Start 11-Jan-2016 Active Furosemide 20 MG Oral Tablet Take 1-2 tabs po q day as needed * Quantity: 60 Refills: 3 Manuela Morrison, Donis * Start 11-Jan-2016 Active Calcium Carbonate 500 (200 Ca) MG Oral Wafer Take 2 daily * Refills: 0 Manuela M.DDonis Collins * Start 11-Jan-2016 Active Supplies [...] MOUTH DAILY * Quantity: 30 Refills: 11 [place] M.D.Donis * Start 18-Aug-2016 Active Imodium A-D 2 MG Oral Tablet TAKE 2 TABLETS INITIALLY, FOLLOWED BY 1 TABLET AFTER EACH LOOSE BOWEL MOVEMENT. DO NOT EXCEED 8 TABLETS/DAY. * Refills: 0 [place] M.Donis Bermudez * Start 18-Aug-2016 Active Acetaminophen 325 MG Oral Tablet Take 2 tabs po every 4 hours PRN * Refills: 0 Manuela M.D.Donis * Start 18-Aug-2016 Active Lidocaine HCl - 2 % External Gel Apply QID PRN * Quantity: 1 Refills: 2 [place] M.D.Donis * Start 09-Oct-2016 Active 30 ML Tube Allergies and Adverse Reactions Name Dates Details [...] History of Pacemaker Placement History of Esophagogastroduodenoscopy Comprehensive Metabolic Panel 1212 Ordered: 05-Sep-2016 URIC ACID 1155 Ordered: 05-Sep-2016 CBC w/ Auto Diff 7150 Ordered: 18-Sep-2016 CBC w/ Auto Diff 7150 Ordered: 17-Oct-2016 Immunization Name Dates Details Fluzone High-Dose SUSP on: 18-Jul-2016 Fluzone High-Dose 0.5 ML Intramuscular Suspension Prefilled Syringe Lot #: [id number] on: 18-Jul-2016 Family History Name Dates Details [...] smoker Vital Signs Date Test Result Details 09-Oct-2016 10:28 BP Systolic 102 mm[Hg] Status: Comments: Location: ; Position: BP Diastolic 60 mm[Hg] Status: Comments: Location: ; Position: Temperature 96.9 f Status: Heart Rate 88 /min Status: Comments: Location: ; Weight 132 lb Status: Physical Findings 93 Status: Comments: O2 Saturation Body Mass Index Calculated 21.31 kg/m2 Status: Body Surface Area Calculated 1.68 m2 Status: 28-Sep-2016 11:53 BP Systolic 102 mm[Hg] Status: Comments: Location: RUE; Position: Sitting BP Diastolic 58 mm[Hg] Status: Comments: Location: RUE; Position: Sitting Heart Rate 77 /min Status: Comments: Location: ; Height 66 in Status: Weight 132 lb Status: Physical Findings 94 Status: Comments: O2 Saturation Body Mass Index Calculated 21.31 kg/m2 Status: Body Surface Area Calculated 1.68 m2 Status: Results Date Description Value Details 26-Sep-2016 14:45 CBC w/ Auto Diff 7150 Comments: Manual differential indicated. WBC 6.8 K/uL Range: 4.5-11.0 RBC 3.15 mil/uL (Below low threshold) Range: 4.20-5.40 HGB 10.2 g/dL (Below low threshold) Range: 14.0-18.0 HCT 31.2 % (Below low threshold) Range: 42.0-53.0 MCV 99.2 fL (Above high threshold) Range: 80.0-99.0 MCH 32.4 pg Range: 27.3-32.5 MCHC 32.6 % Range: 32.0-36.0 RDW 21.9 % (Above high threshold) Range: 11.6-14.8 PLATELETS 55 K/uL (Below low threshold) Range: 150-400 MPV 8.5 fL Range: 6.0-11.0 15:09 Manual Differential 7400 SEGS 86 % (Above high threshold) Range: 37-80 BANDS 3 % Range: 0-7 LYMPH 8 % (Below low threshold) Range: 13-50 MONO 2 % Range: 0-12 EOSIN 1 % Range: 0-7 BASO 0 % Range: 0-3 OFE LYMPH 0 % Range: 0-0 META 0 % Range: 0-0 MYELO 0 % Range: 0-0 PRO 0 % Range: 0-0 BLAST 0 % Range: 0-0 NUC RBC 0 /100 WBC Range: 0-0 SMUDGE 0 /100 WBC PLATELET Decreased (Abnormal) Range: Adequate ANISO Marked POLYCHRO Slight OVAL Present 03-Oct-2016 14:04 CBC w/ Auto Diff 7150 Comments: Manual differential indicated. WBC 5.5 K/uL Range: 4.5-11.0 RBC 2.81 mil/uL (Below low threshold) Range: 4.20-5.40 HGB 8.9 g/dL (Below low threshold) Range: 14.0-18.0 HCT 26.9 % (Below low threshold) Range: 42.0-53.0 MCV 95.8 fL Range: 80.0-99.0 MCH 31.6 pg Range: 27.3-32.5 MCHC 33.0 % Range: 32.0-36.0 RDW 20.7 % (Above high threshold) Range: 11.6-14.8 PLATELETS 69 K/uL (Below low threshold) Range: 150-400 MPV 7.4 fL Range: 6.0-11.0 14:34 Manual Differential 7400 SEGS 81 % (Above high threshold) Range: 37-80 BANDS 1 % Range: 0-7 LYMPH 12 % (Below low threshold) Range: 13-50 MONO 6 % Range: 0-12 EOSIN 0 % Range: 0-7 BASO 0 % Range: 0-3 OFE LYMPH 0 % Range: 0-0 META 0 % Range: 0-0 MYELO 0 % Range: 0-0 PRO 0 % Range: 0-0 BLAST 0 % Range: 0-0 NUC RBC 0 /100 WBC Range: 0-0 SMUDGE 0 /100 WBC PLATELET Decreased (Abnormal) Range: Adequate ANISO Marked HYPOCHRO Slight POLYCHRO Slight OVAL Present TEAR Present 09-Oct-2016 14:16 Comprehensive Metabolic Panel 1212 SODIUM 138 mmol/L Range: 133-144 POTASSIUM 4.5 mmol/L Range: 3.5-5.1 CHLORIDE 105 mmol/L Range: 98-110 CARBON DIOXIDE 22.9 mmol/L (Below low threshold) Range: 23.0-33.0 ANION GAP 10 mmol/L Range: 6-16 BUN 28 mg/dL (Above high threshold) Range: 7-18 CREATININE, SERUM 1.15 mg/dL Range: 0.70-1.30 BUN:CREATININE RATIO 24 EST GFR, >60 ml/min Range: >60 EST GFR, NON-AFR [place] 60 ml/min (Below low threshold) Range: >60 Comments: EST GFR is reported in ml/min per 1.73 m2 of body surface area. ----- GLUCOSE 100 mg/dL Range: 70-100 ALK PHOSPHATASE 197 U/L (Above high threshold) Range: 46-116 TOTAL BILIRUBIN 1.80 mg/dL (Above high threshold) Range: 0.20-1.00 AST 40 U/L (Above high threshold) Range: 8-35 ALT 41 U/L Range: 16-63 ALBUMIN 3.3 g/dL (Below low threshold) Range: 3.4-5.0 TOTAL PROTEIN 6.8 g/dL Range: 6.4-8.2 A/G RATIO 0.9 units (Below low threshold) Range: 1.0-1.8 CALCIUM 8.1 mg/dL (Below low threshold) Range: 8.5-10.1 14:47 PSA ( PROSTATE SPECIFIC ANTIGEN) 3100 PROSTATE SPECIFIC ANTIGEN 0.090 ng/mL Range: 0.000-4.000 Comments: Variance from previous testing noted.----- 14:52 CBC w/ Auto Diff 7150 WBC 5.6 K/uL Range: 4.5-11.0 RBC 2.72 mil/uL (Below low threshold) Range: 4.20-5.40 HGB 8.7 g/dL (Below low threshold) Range: 14.0-18.0 HCT 26.4 % (Below low threshold) Range: 42.0-53.0 MCV 96.9 fL Range: 80.0-99.0 MCH 31.8 pg Range: 27.3-32.5 MCHC 32.8 % Range: 32.0-36.0 RDW 21.2 % (Above high threshold) Range: 11.6-14.8 PLATELETS 74 K/uL (Below low threshold) Range: 150-400 MPV 7.2 fL Range: 6.0-11.0 %NEUTRO 76.9 % Range: 37.0-80.0 %LYMPHS 15.1 % Range: 13.0-50.0 %MONO 4.2 % Range: 0.0-12.0 %EOS 1.9 % Range: 0.0-7.0 %BASO 0.5 % Range: 0.0-2.5 %BAY 1.5 % Range: 0.0-5.0 NEUTRO 4.3 K/uL Range: 2.0-6.9 LYMPHS 0.9 K/uL Range: 0.6-3.4 MONOS 0.2 K/uL Range: 0.0-0.9 EOS 0.1 K/uL Range: 0.0-0.7 BASO 0.0 K/uL Range: 0.0-0.2 Plan of Care Name Dates Details Planned Observations Planned Goals not documented Planned Encounters Appointment; Provider: Michelet Oropeza M.D. On 15-Nov-2016 11:00 Appointment; Provider: Donis Roy M.D. On 07-Nov-2016 10:00 Appointment; Provider: Donis Roy M.D. On 18-Oct-2016 08:15 Interventions Provided Labs/Procedures/Imaging* CBC w/ Auto Diff 7150; To be Done: 17 Oct 2016 Instructions Name Dates Details Instructions not documented [...]
--- OUTSIDE RECORDS SUMMARY | 2016-12-11 09:52 | XMS REPORT | Summary of Care ---
Author Author Oneyda Francisco Unknown Address [address] [place] [address] Phone Unavailable Care Team Providers Care Knifeman Name Role Phone Tatum Morrison, O Unavailable Unavailable Pepe Esparza PP Unavailable Unavailable Unavailable Functional Status Functional Status Health Issues* Name Dates Details Functional status health issues are not documented Status: Cognitive Status Health Issues* Name Dates Details Cognitive status health issues are not documented Status: Problems Name Dates Details Dyspnea (786.09, R06.00) Status: Active Pulmonary hypertension (416.8, I27.0) Status: Active Medications Name Dates Details Losartan [...] smoked Vital Signs Date Test Result Details 15-Apr-2015 10:18 BP Systolic 128 mm[Hg] Status: BP Diastolic 84 mm[Hg] Status: Heart Rate 74 /min Status: Weight 136 lb Status: O2 SAT 96 % Status: Body Mass Index Calculated 21.95 kg/m2 Status: Body Surface Area Calculated 1.7 m2 Status: Results Date Description Value Details Results not documented Plan of Care Planned Observations* Name Dates Details Planned Goals not documented Goal Instructions * Instructions not documented Encounters Appointment; Griffin Winn Encounter Diagnosis: Problem not documented On 15-Apr-2015 10:30 Appointment; Griffin Winn Encounter Diagnosis: Problem not documented On 13:00
--- OUTSIDE RECORDS SUMMARY | 2016-12-11 09:53 | XMS REPORT ---
Author Author GENERATED, SYSTEM Organization Unknown Address Unknown Phone Unavailable Care Team Providers Care Excellence Coach Name Role Phone MD TUCKER BRIAN PP [phone] Reason For Visit Chief Complaint G47.33 G25.81,SLEEP STUDY Social History Functional Status Vital Signs Results Problems Encounter Diagnosis No relevant problems exist. Encounters Encounter Diagnosis No relevant problems exist. Plan of Care Procedures No relevant procedures performed. Immunizations No immunizations administered or ordered. Hospital Course Hospital Discharge Instructions Allergies, Adverse Reactions, Alerts * Latex Allergy has not been assessed. * IV Contrast Allergy has not been assessed. Medication Medication reconciliation has not been performed.
--- OUTSIDE RECORDS SUMMARY | 2016-12-11 09:53 | XMS REPORT ---
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
--- OUTSIDE RECORDS SUMMARY | 2016-12-11 09:53 | XMS REPORT | Summary of Care ---
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 Quantity: 60 * Start Active [place] Thyroid 60 MG Oral Tablet TAKE TWO [...] twice daily * Quantity: 60 Refills: 6 YoloDonis leon M.D. * Start 11-Jan-2016 Active Furosemide 20 MG Oral Tablet Take 1-2 tabs po q day as needed * Quantity: 60 Refills: 3 Donis Roy M.D. * Start 11-Jan-2016 Active Calcium Carbonate 500 (200 Ca) MG Oral Wafer Take 2 daily * Refills: 0 Donis Roy M.D. * Start 11-Jan-2016 Active Supplies Auto CPAP 8-12 cm H2O Permanent use Dx:G47.33 AirSense 10 with heated tubing/ humidity mask headgear filter H2O chamber tubing chinstrap * Quantity: 1 Refills: 0 Yudi Yarbrough * Start Active Supplies Resmed S10 AirCurve 20/15 cm H2O, Permanent use, 327.23, Heated humidity, mask, headgear, filters, heated tubing, water chamber, chinstrap * Quantity: 1 Refills: 0 Griffin Winn M.D. * Start 03-May-2016 Active Pantoprazole Sodium 40 MG Oral Tablet Delayed Release TAKE 1 TABLET BY MOUTH DAILY * Quantity: 90 Refills: 3 Donis Roy M.D. Start 18-Aug-2016 Active Imodium A-D 2 MG Oral Tablet TAKE 2 TABLETS INITIALLY, FOLLOWED BY 1 TABLET AFTER EACH LOOSE BOWEL MOVEMENT. DO NOT EXCEED 8 TABLETS/DAY. * Refills: 0 Donis Roy M.D. Start 18-Aug-2016 Active Acetaminophen 325 MG Oral Tablet Take 2 tabs po every 4 hours PRN * Refills: 0 Donis Roy M.D. Start 18-Aug-2016 Active Allergies and Adverse Reactions [...] of Esophagogastroduodenoscopy URIC ACID 1155 Ordered: 24-Jul-2016 Immunization Name Dates Details Fluzone High-Dose SUSP on: 18-Jul-2016 Fluzone High-Dose 0.5 ML Intramuscular Suspension Prefilled Syringe Lot #: [id number] on: 18-Jul-2016 Family History Name Dates Details [...] smoker Vital Signs Date Test Result Details 22-Aug-2016 11:19 BP Systolic 100 mm[Hg] Status: Comments: Location: RUE; Position: Sitting BP Diastolic 58 mm[Hg] Status: Comments: Location: RUE; Position: Sitting Heart Rate 62 /min Status: Comments: Location: ; Weight 125 lb Status: Physical Findings 93 Status: Comments: O2 Saturation Body Mass Index Calculated 20.18 kg/m2 Status: Body Surface Area Calculated 1.64 m2 Status: 24-Jul-2016 10:56 BP Systolic 110 mm[Hg] Status: Comments: Location: LUE; Position: Sitting BP Diastolic 68 mm[Hg] Status: Comments: Location: LUE; Position: Sitting Temperature 98.8 f Status: Heart Rate 73 /min Status: Comments: Location: ; Weight 138 lb Status: Physical Findings 98 Status: Comments: O2 Saturation Body Mass Index Calculated 22.27 kg/m2 Status: Body Surface Area Calculated 1.71 m2 Status: Results Date Description Value Details 24-Jul-2016 16:03 CBC w/ Manual Diff 7225 Comments: ORDER IN BOOK UNDER JULY WBC 6.6 K/uL Range: 4.5-11.0 RBC 3.30 mil/uL (Below low threshold) Range: 4.20-5.40 HGB 10.6 g/dL (Below low threshold) Range: 14.0-18.0 HCT 30.8 % (Below low threshold) Range: 42.0-53.0 MCV 93.6 fL Range: 80.0-99.0 MCH 32.2 pg Range: 27.3-32.5 MCHC 34.4 % Range: 32.0-36.0 RDW 20.2 % (Above high threshold) Range: 11.6-14.8 PLATELETS 41 K/uL (Below low threshold) Range: 150-400 MPV 7.8 fL Range: 6.0-11.0 NEUTRO 5.6 K/uL Range: 2.0-6.9 SEGS 80 % Range: 37-80 BANDS 0 % Range: 0-7 LYMPH 11 % (Below low threshold) Range: 13-50 MONO 5 % Range: 0-12 EOSIN 1 % Range: 0-7 BASO 3 % Range: 0-3 OFE LYMPH 0 % Range: 0-0 META 0 % Range: 0-0 MYELO 0 % Range: 0-0 PRO 0 % Range: 0-0 BLAST 0 % Range: 0-0 NUC RBC 0 /100 WBC Range: 0-0 SMUDGE 0 /100 WBC PLATELET Decreased (Abnormal) Range: Adequate ANISO Mod MACROCYT Slight OVAL Present 08-Aug-2016 14:47 CBC w/ Manual Diff 7225 [...] low threshold) Range: >60 EST GFR, NON-AFR CITIZEN OF [place] 48 ml/min (Below low threshold) Range: >60 Comments: EST GFR is reported in ml/min per 1.73 m2 of body surface area. ----- BUN:CREATININE RATIO 35 GLUCOSE 103 mg/dL (Above high threshold) Range: 70-100 CALCIUM 9.0 mg/dL Range: 8.5-10.1 14:25 URIC ACID 1155 URIC ACID 4.3 mg/dL Range: 2.6-7.2 14:42 Vitamin D, 25 - Hydroxy 3111 VITAMIN D, 25-HYDROXY 35 ng/mL Range: 30-100 Plan of Care Name Dates Details Planned Observations Planned Goals not documented Planned Encounters Appointment; Provider: Donis Roy M.D. On 05-Sep-2016 10:00 Appointment; Provider: Ivone Baer On 25-Aug-2016 09:30 Appointment; Provider: Donis Roy M.D. On 23-Aug-2016 10:00 Interventions Provided Labs/Procedures/Imaging* BASIC METABOLIC PROFILE 1210; Done: 22Aug2016 12:11PM * URIC ACID 1155; Done: 22Aug2016 12:11PM * Vitamin D, 25 - Hydroxy 3111; Done: 22Aug2016 12:11PM Instructions Name Dates Details Instructions not documented [...] Problem not documented On 15-Apr-2015 10:30 Appointment; Girffin Winn M.D. Encounter Diagnosis: Problem not documented On 13:00
--- OUTSIDE RECORDS SUMMARY | 2016-12-11 09:53 | XMS REPORT ---
Author Author Eden Pyle Organization [employer] Address Unknown Phone Unavailable Care Team Providers Care Sole Dyer Name Role Phone Eden Pyle CP Unavailable [...]
--- OUTSIDE RECORDS SUMMARY | 2016-12-11 09:53 | XMS REPORT | Summary of Care ---
Author Author Manuela Morrison, Donis Organization Unknown Address Unknown Phone Unavailable Care Team Providers Care Woodwind Instruments Inspector Name Role Phone Yudi Yarbrough Unavailable Hannah [...] TWICE DAILY. Quantity: 60 * Start Active [place] Thyroid 60 MG Oral Tablet TAKE TWO [...] needed * Quantity: 60 Refills: 3 Manuela M.D.Donis * Start 11-Jan-2016 Active Calcium Carbonate 500 (200 Ca) MG Oral Wafer Take 2 daily * Refills: 0 [place] M.D.Donis * Start 11-Jan-2016 Active Supplies Auto CPAP [...] NOT EXCEED 8 TABLETS/DAY. * Refills: 0 [place] M.DDonis Collins * Start 18-Aug-2016 Active Acetaminophen 325 MG Oral Tablet Take 2 tabs po every 4 hours PRN * Refills: 0 Manuela M.D.Donis * Start 18-Aug-2016 Active Allergies and Adverse [...] of Esophagogastroduodenoscopy URIC ACID 1155 Ordered: 24-Jul-2016 CBC w/ Auto Diff 7150 Ordered: 05-Sep-2016 Comprehensive Metabolic Panel 1212 Ordered: 05-Sep-2016 URIC ACID 1155 Ordered: 05-Sep-2016 Immunization Name Dates Details Fluzone High-Dose SUSP on: 18-Jul-2016 Fluzone High-Dose 0.5 ML Intramuscular Suspension Prefilled Syringe Lot #: [id number] on: 18-Jul-2016 Family History Name Dates Details [...] low threshold) Range: >60 EST GFR, NON-AFR [place] 48 ml/min (Below low threshold) Range: >60 [...] Dates Details Instructions not documented Encounters Appointment; Yudi Campos P.A. Encounter Diagnosis: Problem [...]
--- OUTSIDE RECORDS SUMMARY | 2016-12-11 09:53 | XMS REPORT | Summary of Care ---
Author Author Feliberto Morrison, Josep Cole Organization Unknown Address [address] [place], [place] [id number] Phone Unavailable Care Team Providers Care Gas Turbine Powerplant Mechanic Name Role Phone Tatum Morrison, O Unavailable Unavailable Pepe Esparza PP Unavailable Unavailable Unavailable Functional Status Functional Status Health Issues* Name Dates Details Functional status health issues are not documented Status: Cognitive Status Health Issues* Name Dates Details Cognitive status health issues are not documented Status: Problems Name Dates Details Dyspnea (786.09, R06.00) Status: Active Pulmonary hypertension (416.8, I27.2) Status: Active Thyroid disease (246.9, E07.9) Status: Active 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, Z95.0) Status: Active Left-sided epistaxis (784.7, R04.0) Status: Active Right-sided epistaxis (784.7, R04.0) Status: Active Medications Name Dates Details Losartan [...] Medical History Name Dates Details History of fatigue (V13.89, Z87.898) Status: Resolved History of malignant neoplasm (V10.90, [...] of lung cancer (V16.1, Z80.1) Status: Active Father* Name Dates Details Family history of cerebrovascular accident (CVA) (V17.1, Z82.3) Status: Active Social History Name Dates Details Smoking Status* Never smoker Vital Signs Date Test Result Details 15-Nov-2015 14:21 Temperature 96.7 f Status: Heart Rate 68 /min Status: Weight 134.5 lb Status: Body Mass Index Calculated 21.71 kg/m2 Status: Body Surface Area Calculated 1.69 m2 Status: Results Date Description Value Details Results not documented Plan of Care Planned Observations* Name Dates Details Planned Goals not documented Goal Instructions * Instructions not documented Encounters Appointment; oJsep Dao Encounter Diagnosis: Problem not documented On 15-Nov-2015 14:45 Appointment; Griffin Winn Encounter Diagnosis: Problem not documented On 15-Apr-2015 10:30 Appointment; Griffin Winn Encounter Diagnosis: Problem not documented On 13:00
--- OUTSIDE RECORDS SUMMARY | 2016-12-11 09:53 | XMS REPORT ---
Author Author Eden Pyle Organization [employer] Address Unknown Phone Unavailable Care Team Providers Care Supervisor Plastics Name Role Phone Eden Pyle CP Unavailable [...]
--- OUTSIDE RECORDS SUMMARY | 2016-12-11 09:53 | XMS REPORT | Summary of Care ---
Author Author Manuela Morrison, Donis Organization Unknown Address Unknown Phone Unavailable Care Team Providers Care Travel Registered Nurse Icu Name Role Phone Yudi Yarbrough Unavailable Unavailable Donis Roy M.D. Unavailable Unavailable Michelle Winn M.D. Unavailable Unavailable Donis Roy Unavailable Unavailable Unavailable Unavailable Functional Status Name Dates Details Functional status health issues are not documented Status: Name Dates Details Cognitive status health issues are not documented Status: Problems Name Dates Details Dyspnea (786.09, R06.00) Status: Active Thyroid disease (246.9, E07.9) Status: [...] (prostate specific antigen) (V76.44, Z12.5) Status: Active Gout (274.9, M10.9) Status: Active Congestive heart failure (CHF) (428.0, I50.9) Status: Active Atrial fibrillation (427.31, I48.91) Status: Active Chronic kidney disease (585.9, N18.9) Status: Active Hypertension (401.9, I10) Status: Active 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 Griffin Winn M.D. * Start Active [place] Thyroid 60 MG Oral Tablet Take 2 tab daily alternating with 2 1/2 tab every other day * Quantity: 180 Refills: 0 [place] M.D., Donis * Start Active Pravastatin Sodium 10 MG Oral Tablet TAKE 1 TABLET DAILY. * Refills: 0 Tatum Rucker.Michelle.Griffin * Start Active Multi Vitamin Mens Oral Tablet TAKE 1 TABLET DAILY. * Refills: 0 Tatum M.Michelle.Griffin * Start Active Losartan Potassium 50 MG Oral Tablet TAKE 1 TABLET DAILY. * Refills: 0 [place] M.D., Donis * Start 11-Jan-2016 Active Allopurinol 300 MG Oral Tablet TAKE 1 TABLET DAILY. * Refills: 0 Manuela M.D., Donis * Start 11-Jan-2016 Active Eliquis 5 MG Oral Tablet Take twice daily * Quantity: 60 Refills: 6 [place] M.D., Donis * Start 11-Jan-2016 Active Lasix 20 MG Oral Tablet TAKE 1 TABLET DAILY. * Refills: 0 Manuela M.D., Donis * Start 11-Jan-2016 Active Calcium Carbonate 500 (200 Ca) MG Oral Wafer Take 1 daily * Refills: 0 [place] M.D., Donis * Start 11-Jan-2016 Active Vitamin B Complex Oral Tablet TAKE 1 TABLET DAILY. * Refills: 0 [place] M.D.Donis * Start 11-Jan-2016 Active Vitamin C 500 MG Oral Tablet Chewable CHEW AND SWALLOW 1 TABLET DAILY. * Refills: 0 Manuela M.D., Donis * Start 11-Jan-2016 Active [place] Oral Capsule TAKE 1 CAPSULE DAILY. * Refills: 0 Manuela M.D., Donis * Start 11-Jan-2016 Active Supplies Auto CPAP 8-12 cm H2O Permanent use Dx:G47.33 AirSense 10 with heated tubing/ humidity mask headgear filter H2O chamber tubing chinstrap * Quantity: 1 Refills: 0 Andres P.A., Yudi * Start Active Allergies and Adverse Reactions Name Dates Details Flecainide Acetate TABS (Allergy) Status: Active Past Medical History Name Dates Details History of aortic valve stenosis (V12.59, Z86.79) Status: Resolved History of fatigue (V13.89, Z87.898) Status: Resolved History of fracture of left hip (V15.51, Z87.81) Status: Resolved History of malignant neoplasm (V10.90, Z85.9) Status: Resolved 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, 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: Resolved History of shortness of breath (V13.89, Z87.898) Status: Resolved Procedures Procedure Dates Details History of Hernia Repair History of Heart Valve Replacement History of Pacemaker Placement History of Hip Repair History of Colonoscopy Procedures not documented Immunization Name Dates Details Immunizations not documented Family History Name Dates Details Family history [...] smoker Vital Signs Date Test Result Details 15:15 Height 66 in Status: Weight 140 lb Status: Physical Findings 93 Status: Comments: O2 Saturation Body Mass Index Calculated 22.6 kg/m2 Status: Body Surface Area Calculated 1.72 m2 Status: BP Systolic 118 mm[Hg] Status: Comments: Location: ; Position: BP Diastolic 82 mm[Hg] Status: Comments: Location: ; Position: Heart Rate 63 /min Status: Comments: Location: ; Results Date Description Value Details Results not documented Plan of Care Name Dates Details Planned Observations Planned Goals not documented Instructions Name Dates Details Instructions not documented Encounters Appointment; Griffin Winn M.D. Encounter Diagnosis: Problem [...]
--- OUTSIDE RECORDS SUMMARY | 2016-12-11 09:53 | XMS REPORT | Summary of Care ---
Author Author Manuela Morrison, Donis Organization Unknown Address Unknown Phone Unavailable Care Team Providers Care Insurance Collector Name Role Phone Yudi Yarbrough Unavailable Hannah [...] Active Atrial fibrillation (427.31, I48.91) Status: Active Medications Name Dates Details Metoprolol Tartrate 25 MG Oral Tablet TAKE 1 TABLET TWICE DAILY. Quantity: 60 * Start Active [place] Thyroid 60 MG Oral Tablet TAKE TWO AND ONE-HALF TABLETS BY MOUTH DAILY * Quantity: 180 Refills: 11 Donis Roy M.D. * Start 23-Mar-2016 Active Pravastatin Sodium 10 MG Oral Tablet TAKE 1 TABLET DAILY. * Refills: 0 * Start Active Losartan Potassium 50 MG [...] Wafer Take 2 daily * Refills: 0 [place] M.Lara, Donis * Start 11-Jan-2016 Active Supplies Resmed S10 AirCurve 20/15 cm H2O, Permanent use, 327.23, Heated humidity, mask, headgear, filters, heated tubing, water chamber, chinstrap * Quantity: 1 Refills: 0 Andres P.A., Yudi * Start 03-May-2016 Active Pantoprazole Sodium 40 MG Oral Tablet Delayed Release TAKE 1 TABLET BY MOUTH DAILY * Quantity: 30 Refills: 11 [place] M.D., Donis * Start 18-Aug-2016 Active Imodium A-D 2 MG Oral Tablet TAKE 2 TABLETS INITIALLY, FOLLOWED BY 1 TABLET AFTER EACH LOOSE BOWEL MOVEMENT. DO NOT EXCEED 8 TABLETS/DAY. * Refills: 0 [place] M.D., Donis * Start 18-Aug-2016 Active Acetaminophen 325 MG Oral Tablet Take 2 tabs po every 4 hours PRN * Refills: 0 Manuela M.Lara, Donis * Start 18-Aug-2016 Active Supplies Auto CPAP 8-12 cm H2O Permanent use Dx:G47.33 AirSense 10 with heated tubing/ humidity mask headgear filter H2O chamber tubing chinstrap * Quantity: 1 Refills: 0 Andres P.A., Yudi * Start Active Multi Vitamin Mens Oral Tablet TAKE 1 TABLET DAILY. * Refills: 0 Griffin Winn M.D. * Start Active Allergies and Adverse Reactions [...] Ordered: 24-Jul-2016 Comprehensive Metabolic Panel 1212 Ordered: 24-Kyle-2017 URIC ACID 1155 Ordered: 05-Sep-2016 CBC w/ Auto Diff 7150 Ordered: 12-Sep-2016 Immunization Name Dates Details Fluzone High-Dose SUSP on: 18-Jul-2016 Fluzone High-Dose 0.5 ML Intramuscular Suspension Prefilled Syringe Lot #: [id number] on: 18-Jul-2016 Family History Name Dates Details [...] BP Diastolic 58 mm[Hg] Status: Comments: Location: E; Position: Sitting Temperature 98.2 f Status: Heart [...] m2 Status: Results Date Description Value Details 22-Aug-2016 14:25 BASIC METABOLIC PROFILE 1210 SODIUM 139 mmol/L Range: 133-144 POTASSIUM 3.8 mmol/L Range: 3.5-5.1 CHLORIDE 101 mmol/L Range: 98-110 CARBON DIOXIDE 31.9 mmol/L Range: 23.0-33.0 ANION GAP 6 mmol/L Range: 6-16 BUN 48 mg/dL (Above high threshold) Range: 7-18 CREATININE, SERUM 1.39 mg/dL (Above high threshold) Range: 0.70-1.30 EST GFR, 58 ml/min (Below low threshold) Range: >60 EST GFR, NON-AFR [place] 48 ml/min (Below low threshold) Range: >60 [...] Roy M.D. On 07-Nov-2016 10:00 Appointment; Provider: Michelet Oropeza M.D. On 28-Sep-2016 11:30 Interventions Provided Labs/Procedures/Imaging* CBC w/ Auto Diff 7150; To be Done: 12 Sep 2016 Instructions Name Dates Details Instructions not [...]
--- OUTSIDE RECORDS SUMMARY | 2016-12-11 09:53 | XMS REPORT ---
Author Author Eden Pyle Organization [employer] Address Unknown Phone Unavailable Care Team Providers Care Log Deckman Name Role Phone Eden Pyle CP Unavailable [...]
--- OUTSIDE RECORDS SUMMARY | 2016-12-11 09:54 | XMS REPORT ---
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
--- OUTSIDE RECORDS SUMMARY | 2016-12-11 09:54 | XMS REPORT | Referral Summary ---
Author Author [facility] Organization [facility] Address Unknown Phone Unavailable Care Team Providers Care Net Maker Name Role Phone Lupillo Esparza Primary Care Physician Unavailable Encounter [facility] [id number] Date(s): 12/06/15 - 12/06/15 [facility] [address] [place], [place] [address] Discharge Disposition: 01-Home or Self Care Attending Physician: Mahesh Parikh MD Admitting Physician: Mahesh Parikh MD Vital Signs No data available for this section Problem List Condition Effective Dates Status Health [...] DAILY, # 100 tabs, 3 Refill(s), eRx: [facility], TAKE ONE-HALF TABLET BY MOUTH TWICE DAILY Start Date: 07/07/15 Status: Ordered multivitamin 1 tabs, Oral, Daily Start Date: 07/01/14 Status: Ordered pravastatin 10 mg oral tablet See Instructions, TAKE ONE TABLET BY MOUTH ONCE DAILY, # 90 tabs, eRx: [facility], TAKE ONE TABLET BY MOUTH ONCE DAILY Start Date: 10/25/15 Status: Ordered thyroid desiccated 60 mg oral tablet 1 tabs, Oral, Daily Start Date: 07/01/14 Status: Ordered Vitamin C 500 mg oral tablet 1 tabs, Oral, Daily Start Date: 07/01/14 Status: Ordered Results No data available for this section Immunizations Vaccine Date Refusal Reason pneumococcal 23-polyvalent vaccine 06/07/05 pneumococcal 23-polyvalent vaccine 06/19/03 Procedures Procedure Date Related Diagnosis Body Site CT R acetabular fx1 10/08/08 S/P colonoscopy2 08/16/07 [facility] - Acc 10/07/08 rec 2WNL; repeat 10 years Social History Social History Type Response Smoking Status Never smoker Assessment and Plan No data available for this section
--- OUTSIDE RECORDS SUMMARY | 2016-12-11 09:54 | XMS REPORT | Referral Summary ---
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 Discharge Diagnosis: Actinic keratoses Discharge Disposition: 01-Home or Self Care Attending Physician: Ariel Vizcarra MD Admitting Physician: Ariel Vizcarra MD Vital Signs No data available for this section Problem List Condition Effective Dates Status Health Status Informant Actinic keratosis Active (disorder)(Confirmed ) Senile Active ecchymosis(Confirmed ) 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, right cheek(Confirmed) Seborrheic Active keratosis(Confirmed) Solar Active degeneration(Confirm ed) Spontaneous Active ecchymosis (finding)(Confirmed) Allergies, Adverse Reactions, Alerts No Known Medication Allergies Medications Aspir 81 oral delayed release tablet 1 tabs, Oral, Every other day Start Date: 07/01/14 Status: Ordered bicalutamide 50 mg oral tablet 50 mg 1 tabs, Oral, q24hr, 0 Refill(s) Start Date: 05/19/15 Status: Ordered calcium gluconate 500 mg oral tablet 1 tabs, Oral, Daily Start Date: 07/01/14 Status: Ordered losartan-hydrochlorothiazide 50 mg-12.5 mg oral tablet 1 tabs, Oral, Daily Start Date: 07/01/14 Status: Ordered Metoprolol Tartrate 50 mg oral tablet See Instructions, TAKE ONE-HALF TABLET BY MOUTH TWICE DAILY, # 100 tabs, 3 Refill(s), eRx: [facility], TAKE ONE-HALF TABLET BY MOUTH TWICE DAILY Start Date: 03/06/14 Status: Ordered multivitamin 1 tabs, Oral, Daily Start Date: 07/01/14 Status: Ordered pravastatin 10 mg oral tablet See Instructions, TAKE ONE TABLET BY MOUTH ONCE DAILY, # 90 tabs, 1 Refill(s), eRx: [facility], TAKE ONE TABLET BY MOUTH ONCE DAILY Start Date: 01/28/15 Status: Ordered thyroid desiccated 60 mg oral tablet 1 tabs, Oral, Daily Start Date: 07/01/14 Status: Ordered Vitamin B Complex oral tablet 1 tabs, Oral, Daily Start Date: 07/01/14 Status: Ordered Vitamin C 500 mg oral tablet 1 tabs, Oral, Daily Start Date: 07/01/14 Status: Ordered Results No data available for this section Immunizations Vaccine Date Refusal Reason pneumococcal 23-polyvalent vaccine 06/07/05 pneumococcal 23-polyvalent vaccine 06/19/03 Procedures Procedure Date Related Diagnosis Body Site Destruction (eg, laser surgery, 01/11/15 electrosurgery, cryosurgery, chemosurgery, surgical curettement), premalignant lesions (eg, actinic keratoses); first lesion Destruction (eg, laser surgery, 01/11/15 electrosurgery, cryosurgery, chemosurgery, surgical curettement), premalignant lesions (eg, actinic keratoses); second through 14 lesions, each (List separately in addition to code for first lesion) CT R acetabular fx1 10/08/08 S/P colonoscopy2 08/16/07 [facility] - Acc 10/07/08 rec 2WNL; repeat 10 years Social History Social History Type Response Smoking Status Never smoker Assessment and Plan Extracted from: Title: Office Visit Note Author: Ariel Vizcarra MD Date: 01/11/15 Assessment/Plan 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
--- OUTSIDE RECORDS SUMMARY | 2016-12-11 09:54 | XMS REPORT ---
Author Author Eden Pyle Organization [employer] Address Unknown Phone Unavailable Care Team Providers Care Network Engineer Administrator Name Role Phone Eden Pyle CP Unavailable [...]
--- OUTSIDE RECORDS SUMMARY | 2016-12-11 09:54 | XMS REPORT | Referral Summary ---
Author Author [facility] Organization [facility] Address Unknown Phone Unavailable Care Team Providers Care Field Sales Representative Name Role Phone Joe Roy Primary Care Physician [phone] Encounter [facility] [id number] Date(s): 05/19/15 - 05/19/15 [facility] [address] [place] [address] JAY Molina [address] Discharge Diagnosis: Pulmonary hypertension Discharge Diagnosis: Aortic valve replaced Discharge Diagnosis: Cardiac pacemaker Discharge Disposition: 01-Home or Self Care Attending Physician: Mahesh Parikh MD Admitting Physician: Mahesh Parikh MD Referring Physician: Pepe Esparza Vital Signs Most recent to 1 oldest [Reference Range]: Peripheral Pulse 76 bpm Rate [60-100 bpm] (05/19/15 1:04 PM) Blood Pressure 122/74 mmHg [90-140/60-90 mmHg] (05/19/15 1:04 PM) Problem List Condition Effective Dates Status Health [...] DAILY, # 100 tabs, 3 Refill(s), eRx: [facility], TAKE ONE-HALF TABLET BY MOUTH TWICE DAILY Start Date: 03/06/14 Status: Ordered multivitamin 1 tabs, Oral, Daily Start Date: 07/01/14 Status: Ordered pravastatin 10 mg oral tablet See Instructions, TAKE ONE TABLET BY MOUTH ONCE DAILY, # 90 tabs, 1 Refill(s), eRx: [facility], TAKE ONE TABLET BY MOUTH [...] acetabular fx1 10/08/08 S/P colonoscopy2 08/16/07 [facility] - Acc 10/07/08 rec 2WNL; repeat 10 years Social History Social History Type Response Smoking Status Never smoker Assessment and Plan Extracted from: Title: Office Visit Note Author: Mahesh Parikh MD Date: 05/19/15 Assessment/Plan 1.Pulmonary hypertension Ordered: Echo, 2-D + Doppler + Color Flow 2.Aortic valve replaced Ordered: Echo, 2-D + Doppler + Color Flow 3.Cardiac pacemaker Discussion:We reviewed options with the patient and with his family. Basically, the patient seems to be very high functioningandis not very interested in any testing or procedures. After a lot of discussion, then, he has elected to sit tight with his current management and have a follow-up visit in 6 months and recheck the echo findings at that time. Time of visit about 25 minutes.
--- OUTSIDE RECORDS SUMMARY | 2016-12-11 09:54 | XMS REPORT | Summary of Care ---
Author Author Manuela Morrison, Donis Organization Unknown Address Unknown Phone Unavailable Care Team Providers Care Alcohol Law Enforcement Agent Name Role Phone Yudi Yarbrough Unavailable Hannah Roy M.D., Doins Roy M.D., Aaron Unavailable Unavailable Tatum Morrison, [...] Upper GI bleed (578.9, K92.2) Status: Active Medications Name Dates Details Metoprolol Tartrate 25 MG Oral Tablet TAKE 1 TABLET TWICE DAILY. Quantity: 60 * Start Active [place] Thyroid 60 MG Oral Tablet TAKE TWO [...] twice daily * Quantity: 60 Refills: 6 ManuelaDonis leon M.D. * Start 11-Jan-2016 Active Furosemide 20 MG Oral Tablet Take 1-2 tabs po q day as needed * Quantity: 60 Refills: 3 Donis Roy M.D. * Start 11-Jan-2016 Active Calcium Carbonate 500 (200 Ca) MG Oral Wafer Take 2 daily * Refills: 0 Clovis M.D., Donis * Start 11-Jan-2016 Active Supplies [...] MOUTH DAILY * Quantity: 90 Refills: 3 [place] M.D., Donis * Start 18-Aug-2016 Active Imodium A-D 2 MG Oral Tablet TAKE 2 TABLETS INITIALLY, FOLLOWED BY 1 TABLET AFTER EACH LOOSE BOWEL MOVEMENT. DO NOT EXCEED 8 TABLETS/DAY. * Refills: 0 Manuela M.D., Donis * Start 18-Aug-2016 Active Acetaminophen 325 MG Oral Tablet Take 2 tabs po every 4 hours PRN * Refills: 0 Manuela M.D., Donis * Start 18-Aug-2016 Active Allergies and Adverse [...] ML Intramuscular Suspension Prefilled Syringe Lot #: [id number] on: 18-Jul-2016 Family History Name Dates Details [...] mm[Hg] Status: Comments: Location: LUE; Position: Sitting Heart Rate 62 /min Status: [...] low threshold) Range: >60 EST GFR, NON-AFR AZERBAIJANI 48 ml/min (Below low threshold) Range: >60 [...] Appointment; Provider: Ivone Baer On 25-Aug-2016 09:30 Instructions Name Dates Details Instructions not documented [...]
--- OUTSIDE RECORDS SUMMARY | 2016-12-11 09:54 | XMS REPORT | Summary of Care ---
Author Author Manuela Morrison, Donis Organization Unknown Address Unknown Phone Unavailable Care Team Providers Care Weaving Machine Operator Name Role Phone Yudi Yarbrough Unavailable [...] Status: Active Hypersomnolence (780.54, G47.10) Status: Active Medications Name Dates Details Metoprolol Tartrate 25 MG Oral Tablet TAKE 1 TABLET TWICE DAILY. Quantity: 60 * Start Active [place] Thyroid 60 MG Oral Tablet TAKE TWO [...] Wafer Take 2 daily * Refills: 0 Wake M.D., Donis * Start 11-Jan-2016 Active Supplies [...] MOUTH DAILY * Quantity: 30 Refills: 11 Wake M.D., Donis * Start 18-Aug-2016 Active Imodium A-D 2 MG Oral Tablet TAKE 2 TABLETS INITIALLY, FOLLOWED BY 1 TABLET AFTER EACH LOOSE BOWEL MOVEMENT. DO NOT EXCEED 8 TABLETS/DAY. * Refills: 0 Wake M.D., Donis * Start 18-Aug-2016 Active Acetaminophen 325 MG Oral Tablet Take 2 tabs po every 4 hours PRN * Refills: 0 Wake M.D.Donis * Start 18-Aug-2016 Active Allergies and [...] 18-Sep-2016 CBC w/ Auto Diff 7150 Ordered: 03-Oct-2016 Immunization Name Dates Details Fluzone High-Dose SUSP on: 18-Jul-2016 Fluzone High-Dose 0.5 ML Intramuscular Suspension Prefilled Syringe Lot #: [id number] on: 18-Jul-2016 Family History Name Dates Details [...] smoker Vital Signs Date Test Result Details 28-Sep-2016 11:53 BP Systolic 102 mm[Hg] Status: Comments: Location: ; Position: BP Diastolic 58 mm[Hg] Status: Comments: Location: ; Position: Heart Rate 77 /min Status: Comments: Location: ; Height 66 in Status: Weight 132 lb Status: Physical Findings 94 Status: Comments: O2 Saturation Body Mass Index Calculated 21.31 kg/m2 Status: Body Surface Area Calculated 1.68 m2 Status: 05-Sep-2016 10:07 BP Systolic 98 mm[Hg] Status: Comments: Location: ; Position: BP Diastolic 58 mm[Hg] Status: Comments: Location: ; Position: Temperature 98.2 f Status: Heart Rate 79 /min Status: Comments: Location: ; Weight 134 lb Status: Physical Findings 96 Status: Comments: O2 Saturation Body Mass Index Calculated 21.63 kg/m2 Status: Body Surface Area Calculated 1.69 m2 Status: Results Date Description Value Details 12-Sep-2016 14:31 CBC w/ Auto Diff 7150 Comments: Manual differential indicated. WBC 7.3 K/uL Range: 4.5-11.0 RBC 2.87 mil/uL (Below low threshold) Range: 4.20-5.40 HGB 9.4 g/dL (Below low threshold) Range: 14.0-18.0 HCT 29.0 % (Below low threshold) Range: 42.0-53.0 MCV 100.9 fL (Above high threshold) Range: 80.0-99.0 MCH 32.8 pg (Above high threshold) Range: 27.3-32.5 MCHC 32.5 % Range: 32.0-36.0 RDW 22.7 % (Above high threshold) Range: 11.6-14.8 PLATELETS 46 K/uL (Below low threshold) Range: 150-400 MPV 8.9 fL Range: 6.0-11.0 14:52 Manual Differential 7400 SEGS 68 % Range: 37-80 BANDS 3 % Range: 0-7 LYMPH 11 % (Below low threshold) Range: 13-50 MONO 9 % Range: 0-12 EOSIN 1 % Range: 0-7 BASO 0 % Range: 0-3 OFE LYMPH 3 % (Above high threshold) Range: 0-0 META 3 % (Above high threshold) Range: 0-0 MYELO 2 % (Above high threshold) Range: 0-0 PRO 0 % Range: 0-0 BLAST 0 % Range: 0-0 NUC RBC 0 /100 WBC Range: 0-0 SMUDGE 0 /100 WBC PLATELET Decreased (Abnormal) Range: Adequate ANISO Marked MACROCYT Slight HYPOCHRO Mod POLYCHRO Mod OVAL Present 26-Sep-2016 14:45 CBC w/ Auto Diff 7150 [...] Slight POLYCHRO Slight OVAL Present TEAR Present Plan of Care Name Dates Details Planned Observations Planned Goals not documented Planned Encounters Appointment; Provider: Michelet Oropeza M.D. On 15-Nov-2016 11:00 Appointment; Provider: Donis Roy M.D. On 07-Nov-2016 10:00 Interventions Provided Labs/Procedures/Imaging* CBC w/ Auto Diff 7150; Done: [id number] 09:40AM Instructions Name Dates Details Instructions not documented Encounters Appointment; Michelet Oropeza M.D. Encounter Diagnosis: Problem [...]
--- OUTSIDE RECORDS SUMMARY | 2016-12-11 09:54 | XMS REPORT | Referral Summary ---
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 Discharge Disposition: 01-Home or Self Care Attending Physician: Bayron Basilio MD Admitting Physician: Bayron Basilio MD Vital Signs No data available for [...] Reactions, Alerts No Known Medication Allergies Medications calcium gluconate 500 mg oral tablet 1 tabs, Oral, Daily Start Date: 07/01/14 Status: Ordered Eliquis 5 mg oral tablet 5 mg 1 tabs, Oral, BID, # 60 tabs, 0 Refill(s) Start Date: 08/16/15 Status: Ordered furosemide 20 mg oral tablet 20 mg 1 tabs, Oral, Daily, # 30 tabs, 0 Refill(s) Start Date: 08/16/15 Status: Ordered losartan-hydrochlorothiazide 50 mg-12.5 mg oral tablet 1 tabs, Oral, Daily Start Date: 07/01/14 Status: Ordered Metoprolol Tartrate 50 mg oral tablet See Instructions, TAKE ONE-HALF TABLET BY MOUTH TWICE DAILY, # 100 tabs, 3 Refill(s), eRx: [facility], TAKE ONE-HALF TABLET BY MOUTH TWICE DAILY Start Date: 07/07/15 Status: Ordered multivitamin 1 tabs, Oral, Daily Start Date: 07/01/14 Status: Ordered thyroid desiccated 60 mg oral [...] R acetabular fx1 10/08/08 S/P colonoscopy2 08/16/07 [facility] - Acc 10/07/08 rec 2WNL; repeat 10 years Social History Social History Type Response Smoking Status Never smoker Assessment and Plan Extracted from: Title: Office Visit Note Author: Bayron Basilio MD Date: 10/11/15 Assessment/Plan 1.Malignant neoplasm of left ear 85-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 Final pathology showsno residual spindle cell carcinoma. I'll see him back in 3 monthsafter that time he can continue to follow with thisPCP and ultrasound tech. Ordered: Postoperative Est [id number]
--- OUTSIDE RECORDS SUMMARY | 2016-12-11 09:54 | XMS REPORT | Summary of Care ---
Author Author Manuela Morrison, Donis Organization Unknown Address Unknown Phone Unavailable Care Team Providers Care Mulling Machine Operator Name Role Phone Yudi Yarbrough [...] Bilateral pleural effusion (511.9, J90) Status: Active Pulmonary hypertension (416.8, I27.2) Status: Active Restless leg syndrome (333.94, G25.81) Status: Active Chronic cough (786.2, R05) Status: Active Acid reflux (530.81, K21.9) Status: Active Thrombocytopenia (287.5, D69.6) Status: Active Gout (274.9, M10.9) Status: Active Atrial fibrillation (427.31, I48.91) Status: Active Obstructive sleep apnea syndrome, severe (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 Quantity: 60 * Start Active [place] Thyroid 60 MG Oral Tablet TAKE TWO [...] Wafer Take 2 daily * Refills: 0 Branch M.D., Donis * Start 11-Jan-2016 Active Supplies [...] MOUTH DAILY * Quantity: 30 Refills: 11 Branch M.D., Donis * Start 18-Aug-2016 Active Imodium A-D 2 MG Oral Tablet TAKE 2 TABLETS INITIALLY, FOLLOWED BY 1 TABLET AFTER EACH LOOSE BOWEL MOVEMENT. DO NOT EXCEED 8 TABLETS/DAY. * Refills: 0 Manuela M.D., Donis * Start 18-Aug-2016 Active Acetaminophen 325 MG Oral Tablet Take 2 tabs po every 4 hours PRN * Refills: 0 Branch M.D., Donis * Start 18-Aug-2016 Active Allergies [...] CBC w/ Auto Diff 7150 Ordered: 18-Sep-2016 Immunization Name Dates Details Fluzone High-Dose SUSP on: 18-Jul-2016 Fluzone High-Dose 0.5 ML Intramuscular Suspension Prefilled Syringe Lot #: [id number] on: 18-Jul-2016 Family History Name Dates Details [...] Location: ; Position: Temperature 98.2 f Status: Comments: Method: Heart Rate 79 /min Status: Comments: Location: [...] Adequate ANISO Marked POLYCHRO Slight OVAL Present Plan of Care Name Dates Details Planned Observations Planned Goals not documented Planned Encounters Appointment; Provider: Donis Roy M.D. On 07-Nov-2016 10:00 Appointment; Provider: Michelet Oropeza M.D. On 28-Sep-2016 11:30 Instructions Name Dates Details Instructions not documented [...]
--- OUTSIDE RECORDS SUMMARY | 2016-12-11 09:55 | XMS REPORT ---
Author Author Eden Pyle Organization [employer] Address Unknown Phone Unavailable Care Team Providers Care Bowling Ball Engraver Name Role Phone Eden Pyle CP Unavailable [...]
--- OUTSIDE RECORDS SUMMARY | 2016-12-11 09:55 | XMS REPORT ---
Author Author GENERATED, SYSTEM Organization Unknown Address Unknown Phone Unavailable Care Team Providers Care Lawn Maintenance Worker Name Role Phone MD TUCKER BRIAN PP [phone] Reason For Visit Chief Complaint G47.33 G25.81,DIAGNOSTIC SLEEP STUDY Social History Functional Status Vital Signs [...]
--- OUTSIDE RECORDS SUMMARY | 2016-12-11 09:55 | XMS REPORT | Summary of Care ---
Author Author Manuela Morrison, Donis Organization Unknown Address Unknown Phone Unavailable Care Team Providers Care Vehicle Damage Appraiser Name Role Phone Yudi Yarbrough Unavailable Hannah [...] TWICE DAILY. Quantity: 60 * Start Active [place] Thyroid 60 MG Oral Tablet TAKE TWO [...] needed * Quantity: 60 Refills: 3 Manuela Stewart.Donis * Start 11-Jan-2016 Active Calcium Carbonate 500 (200 Ca) MG Oral Wafer Take 2 daily * Refills: 0 Alcorn M.D.Donis * Start 11-Jan-2016 Active Supplies Resmed S10 AirCurve 20/15 cm H2O, Permanent use, 327.23, Heated humidity, mask, headgear, filters, heated tubing, water chamber, chinstrap * Quantity: 1 Refills: 0 Andres P.A., Yudi * Start 03-May-2016 Active Pantoprazole Sodium 40 MG Oral Tablet Delayed Release TAKE 1 TABLET BY MOUTH DAILY * Quantity: 30 Refills: 11 Manuela M.D., Donis * Start 18-Aug-2016 Active Imodium A-D 2 MG Oral Tablet TAKE 2 TABLETS INITIALLY, FOLLOWED BY 1 TABLET AFTER EACH LOOSE BOWEL MOVEMENT. DO NOT EXCEED 8 TABLETS/DAY. * Refills: 0 Alcorn M.D., Donis * Start 18-Aug-2016 Active Acetaminophen 325 MG Oral Tablet Take 2 tabs po every 4 hours PRN * Refills: 0 Manuela M.D.Donis * Start 18-Aug-2016 Active Lidocaine HCl - 2 % External Gel Apply QID PRN * Quantity: 1 Refills: 2 Alcorn M.DDonis Collins * Start 09-Oct-2016 Active 30 ML Tube Supplies Auto CPAP 8-12 cm H2O Permanent [...] ML Intramuscular Suspension Prefilled Syringe Lot #: [id number] on: 18-Jul-2016 Family History Name Dates Details [...] >60 ml/min Range: >60 EST GFR, NON-AFR BHUT[place]ESE 60 ml/min (Below low threshold) Range: >60 [...] Provider: Donis Roy M.D. On 07-Nov-2016 10:00 Instructions Name Dates Details Instructions not documented [...]
--- OUTSIDE RECORDS SUMMARY | 2016-12-11 09:55 | XMS REPORT | Summary of Care ---
Author Author Manuela Morrison, Donis Organization Unknown Address Unknown Phone Unavailable Care Team Providers Care Senior Oracle Developer Name Role Phone Yudi Yarbrough Unavailable Hannah [...] (prostate specific antigen) (V76.44, Z12.5) Status: Active Chronic kidney disease (585.9, N18.9) Status: Active Hypertension (401.9, I10) Status: Active Congestive heart failure (CHF) (428.0, I50.9) Status: Active Swelling of face (784.2, R22.0) [...] Active Candidiasis, mouth (112.0, B37.0) Status: Active Medications Name Dates Details Metoprolol Tartrate 25 MG Oral Tablet TAKE 1 TABLET TWICE DAILY. Quantity: 60 * Start Active [place] Thyroid 60 MG Oral Tablet TAKE TWO [...] as needed * Quantity: 60 Refills: 3 [place]Don[place] leon M.D. * Start 11-Jan-2016 Active Calcium Carbonate [...] MOUTH DAILY * Quantity: 30 Refills: 11 [place] leon M.D. * Start 18-Aug-2016 Active Imodium A-D 2 [...] QID PRN * Quantity: 1 Refills: 2 Donis Roy M.D. * Start 09-Oct-2016 Active 30 ML Tube Nystatin [id number] UNIT/ML Mouth/Throat Suspension SWISH AND SWALLOW 5ML 4 TIMES DAILY. * Quantity: 200 Refills: 0 Donis Roy M.D. * Start 18-Oct-2016 Active Allergies and Adverse Reactions Name Dates [...] ML Intramuscular Suspension Prefilled Syringe Lot #: [id number] on: 18-Jul-2016 Family History Name Dates Details [...] smoker Vital Signs Date Test Result Details 18-Oct-2016 08:15 BP Systolic 100 mm[Hg] Status: Comments: Location: ; Position: BP Diastolic 60 mm[Hg] Status: Comments: Location: ; Position: Temperature 97.9 f Status: Heart Rate 86 /min Status: Comments: Location: ; Weight 129 lb Status: Physical Findings 98 Status: Comments: O2 Saturation Body Mass Index Calculated 20.82 kg/m2 Status: Body Surface Area Calculated 1.66 m2 Status: 09-Oct-2016 10:28 BP Systolic 102 mm[Hg] Status: Comments: Location: RUE; Position: Sitting BP Diastolic 60 mm[Hg] Status: Comments: Location: RUE; Position: Sitting Temperature 96.9 f Status: Comments: Method: Tympanic Heart Rate 88 /min Status: Comments: Location: [...] >60 ml/min Range: >60 EST GFR, NON-AFR [place] 60 ml/min (Below low threshold) Range: >60 [...] Range: 0.0-0.7 BASO 0.0 K/uL Range: 0.0-0.2 17-Oct-2016 14:25 CBC w/ Auto Diff 7150 [...] Slight HYPOCHRO Slight POLYCHRO Slight OVAL Present Plan of Care Name Dates Details Planned Observations Planned Goals not documented Planned Encounters Appointment; Provider: Michelet Oropeza M.D. On 15-Nov-2016 11:00 Appointment; Provider: Donis Roy M.D. On 07-Nov-2016 10:00 Appointment; Provider: Michelet Oropeza M.D. On 23-Sep-2016 10:15 Instructions Name Dates Details Instructions not documented Encounters Appointment; Donis Roy M.D. Encounter Diagnosis: Problem not documented On 05-Sep-2016 10:00 Appointment; Yudi Campos P.A. Encounter Diagnosis: Problem not documented On 25-Aug-2016 09:30 Appointment; Donis Roy M.D. Encounter Diagnosis: Problem not documented On 23-Aug-2016 10:00 Appointment; Dnois Roy M.D. Encounter Diagnosis: Problem not documented [...]
--- OUTSIDE RECORDS SUMMARY | 2016-12-11 09:55 | XMS REPORT | Summary of Care ---
Author Author Manuela Morrison, Donis Organization Unknown Address Unknown Phone Unavailable Care Team Providers Care Lens Silverer Name Role Phone Yudi Yarbrough Unavailable Hannah [...] TWICE DAILY. Quantity: 60 * Start Active [place] Thyroid 60 MG Oral Tablet TAKE TWO [...] needed * Quantity: 60 Refills: 3 Manuela StewartDonis Collins * Start 11-Jan-2016 Active Calcium Carbonate 500 (200 Ca) MG Oral Wafer Take 2 daily * Refills: 0 [place] M.DDonis Collins * Start 11-Jan-2016 Active Supplies [...] NOT EXCEED 8 TABLETS/DAY. * Refills: 0 [place] M.DDonis Collins * Start 18-Aug-2016 Active Acetaminophen 325 MG Oral Tablet Take 2 tabs po every 4 hours PRN * Refills: 0 [place] M.D.Donis * Start 18-Aug-2016 Active Lidocaine HCl - 2 % External Gel Apply QID PRN * Quantity: 1 Refills: 2 [place] M.D.Donis * Start 09-Oct-2016 Active 30 ML [...] 05-Sep-2016 CBC w/ Auto Diff 7150 Ordered: 03-Oct-2016 PSA ( PROSTATE SPECIFIC ANTIGEN) 3100 Ordered: 09-Oct-2016 Comprehensive Metabolic Panel 1212 Ordered: 09-Oct-2016 CBC w/ Auto Diff 7150 Ordered: 18-Sep-2016 Immunization Name Dates Details Fluzone High-Dose SUSP on: 18-Jul-2016 Fluzone High-Dose 0.5 ML Intramuscular Suspension Prefilled Syringe Lot #: [id number] on: 18-Jul-2016 Family History Name Dates Details [...] Roy M.D. On 07-Nov-2016 10:00 Interventions Provided Medication Changes* Lidocaine HCl - 2 % External Gel - Start Instructions Name Dates Details Instructions not documented [...]
--- OUTSIDE RECORDS SUMMARY | 2016-12-11 09:55 | XMS REPORT ---
Author Author Eden Pyle Organization [employer] Address Unknown Phone Unavailable Care Team Providers Care Poultry Picker Name Role Phone Eden Pyle CP Unavailable [...]
--- OUTSIDE RECORDS SUMMARY | 2016-12-11 09:55 | XMS REPORT | Referral Summary ---
Author Author [facility] Organization [facility] Address Unknown Phone Unavailable Care Team Providers Care Director University Name Role Phone Chaim Roy Primary Care Physician [phone] Encounter VC Date(s): 04/18/16 - 04/18/16 [facility] [address] [place], [place] [address] [place] Discharge Diagnosis: History of skin cancer Discharge Diagnosis: Seborrheic keratoses Discharge Diagnosis: Actinic keratoses Discharge Disposition: 01-Home or Self Care Attending Physician: Jorgito Gomez MD Admitting Physician: Jorgito Gomez MD Referring Physician: Donis Roy MD Vital Signs No data available for [...] Oral, Daily Start Date: 07/01/14 Status: Ordered Efudex 5% topical cream 1 birdie, Topical, BID, Apply thin layer to left cheek, left lutheran and left ear twice daily for three weeks., X 3 weeks, # 40 g, 1 Refill(s), Pharmacy: [facility] Start Date: 04/18/16 Stop Date: 05/30/16 Status: Ordered Eliquis 5 mg oral tablet [...] DAILY, # 100 tabs, 3 Refill(s), eRx: [facility], TAKE ONE-HALF TABLET BY MOUTH TWICE DAILY Start Date: 07/07/15 Status: Ordered multivitamin 1 tabs, Oral, Daily Start Date: 07/01/14 Status: Ordered pravastatin 10 mg oral tablet See Instructions, TAKE ONE TABLET BY MOUTH ONCE DAILY, # 90 tabs, 1 Refill(s), eRx: [facility], TAKE ONE TABLET BY [...] Diagnosis Body Site Destruction (eg, laser surgery, 04/18/16 electrosurgery, cryosurgery, chemosurgery, surgical curettement), premalignant lesions (eg, actinic keratoses); first lesion Destruction (eg, laser surgery, 04/18/16 electrosurgery, cryosurgery, chemosurgery, surgical curettement), premalignant lesions (eg, actinic keratoses); second through 14 lesions, each (List separately in addition to code for first lesion) Biopsy Bone Marrow1 03/29/16 Procedure with Anesthesia2 03/29/16 CT R acetabular fx3 10/08/08 S/P colonoscopy4 08/16/07 tonsilectomy 193 1auto-populated from documented surgical case 2auto-populated from documented surgical case [facility] - Acc 10/07/08 rec 4WNL; repeat 10 years Social History Social History Type Response Smoking Status Never smoker Assessment and Plan Extracted from: Title: Office Visit Note Author: Jorgito Gomez MD Date: 04/18/16 Assessment/Plan 1.Actinic keratoses -Lesions on left lutheran, left cheek and left ear recalcitrant to prior cryotherapy. Will initiate efudex treatment for these lesions. -Initiating 5% efudex cream twice daily x 3 weeks to left cheek/lutheran, external ear bid; pt warned regarding irritation, redness, and photosensitivity ; informed pt that blistering eruptions and sores rarely develop. Instructed pt to d/c this medication and call the clinic ifthey develop blisters or sores from the medication; instructed pt not to apply medication near eyes or mouth and wash hands immediately after application. -14 additional lesions (not being treated with efudex); see physical examination above for locations -Cryotherapy x2 cycle(s) (10 second freeze-thaw cycle) -Encouraged monthly skin self-examination and warning signs of non-melanoma skin cancer discussed -Discussed proper sun protective behavior including: avoiding the hours of peak sun exposure (10am-2pm), wearing sunscreen SPF 30 or higher and reapplying every 2 hours for prolonged sun exposure, and wearing sun protective clothing including a wide brimmed hat -Return to clinic in2 months -Encouraged pt to schedule an earlier f/u appointment if concerning lesions develop or if treated lesions do not resolve in 6 weeks Ordered: fluorouracil topical, 1 birdie, Topical, BID, Apply thin layer to left cheek, left lutheran and left ear twice daily for three weeks., X 3 weeks, # 40 g, 1 Refill(s), Pharmacy: [facility] Destruction premalignant lesion 1st [address] Destruction premalignant lesion 2-14, Each 94759 Office Visit Level 3 Est 34725 2.Seborrheic keratoses -Reassurance regarding the benign nature of these lesions -Discussed ABCDEs of melanoma and recommended monthly skin self-examination -Recommended pt schedule a clinic appointment for anyconcerning lesions Ordered: Office Visit Level 3 Est 14819 3.History of skin cancer -Warning signs of non-melanoma skin cancer discussed -Recommended monthly skin self-examination -Discussed proper sun protective behavior including: avoiding the hours of peak sun exposure (10am-2pm), wearing sunscreen SPF 30 or higher and reapplying every 2 hours for prolonged sun exposure, and wearing sun protective clothing including a wide brimmed hat Ordered: Office Visit Level 3 Est 97871
--- OUTSIDE RECORDS SUMMARY | 2016-12-11 09:56 | XMS REPORT | Referral Summary ---
Author Author [facility] Organization [facility] Address Unknown Phone Unavailable Care Team Providers Care Inspector Missile Name Role Phone Manuela Chaim Primary Care Physician [phone] Encounter VC Date(s): 01/19/16 - 01/19/16 [facility] [address] [place], [place] [address] Discharge Diagnosis: Malignant neoplasm of left ear [...] DAILY, # 100 tabs, 3 Refill(s), eRx: [facility], TAKE ONE-HALF TABLET BY MOUTH TWICE DAILY Start Date: 07/07/15 Status: Ordered multivitamin 1 tabs, Oral, Daily Start Date: 07/01/14 Status: Ordered pravastatin 10 mg oral tablet See Instructions, TAKE ONE TABLET BY MOUTH ONCE DAILY, # 90 tabs, eRx: [facility], TAKE ONE TABLET BY MOUTH ONCE [...] R acetabular fx1 10/08/08 S/P colonoscopy2 08/16/07 W - Acc 10/07/08 rec 2WNL; repeat 10 years Social History Social History Type Response Smoking Status Never smoker Assessment and Plan Extracted from: Title: Office Visit Note Author: Bayron Basilio MD Date: 01/19/16 Assessment/Plan 1.Malignant neoplasm of left ear 85-year-old male4 months out from excision ofleft ear spindle cellcancerand reconstruction. He has a satisfactory resultand has no complaints today. He should continue to follow dermatology for skin checks. Follow-up with me on an as-needed basis. Ordered: Office Visit Level 2 Est 24632
--- OUTSIDE RECORDS SUMMARY | 2016-12-11 09:56 | XMS REPORT | Summary of Care ---
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 Pulmonary hypertension (416.8, I27.2) Status: Active Restless leg syndrome (333.94, G25.81) Status: Active Swelling of face (784.2, R22.0) Status: Active Swelling of hand (729.81, M79.89) Status: Active Fatigue (780.79, R53.83) Status: Active Dyspnea (786.09, R06.00) Status: Active Edema of face (782.3, R60.0) Status: Active Arm edema (782.3, R60.0) Status: Active Obstructive sleep apnea syndrome, severe (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 Griffin Winn M.D. * Start Active [place] Thyroid 60 MG Oral Tablet TAKE TWO AND ONE-HALF TABLETS BY MOUTH DAILY * Quantity: 180 Refills: 11 Bailey M.D., Donis * Start 23-Mar-2016 Active Pravastatin Sodium 10 MG Oral Tablet TAKE 1 TABLET DAILY. * Refills: 0 Griffin Winn M.D. * Start Active Multi Vitamin Mens Oral Tablet TAKE 1 TABLET DAILY. * Refills: 0 Griffin Winn M.D. * Start Active Losartan Potassium 50 MG Oral Tablet TAKE 1 TABLET DAILY. * Quantity: 90 Refills: 3 Manuela M.D., Donis * Start 11-Jan-2016 Active Allopurinol 300 MG Oral Tablet TAKE 1 TABLET DAILY. * Refills: 0 Manuela M.D., Donis * Start 11-Jan-2016 Active Eliquis 5 MG Oral Tablet Take twice daily * Quantity: 60 Refills: 6 Manuela M.D., Donis * Start 11-Jan-2016 Active Lasix 40 MG Oral Tablet TAKE 1 TABLET DAILY. * Quantity: 30 Refills: 6 Bailey M.D., Donis * Start 11-Jan-2016 Active Calcium Carbonate 500 (200 Ca) MG Oral Wafer Take 1 daily * Refills: 0 Bailey M.D., Donis * Start 11-Jan-2016 Active Vitamin B Complex Oral Tablet TAKE 1 TABLET DAILY. * Refills: 0 Bailey M.D., Donis * Start 11-Jan-2016 Active Vitamin C 500 MG Oral Tablet Chewable CHEW AND SWALLOW 1 TABLET DAILY. * Refills: 0 Bailey M.D., Donis * Start 11-Jan-2016 Active Saw [place] Oral Capsule TAKE 1 CAPSULE DAILY. * Refills: 0 Bailey M.D., Donis * Start 11-Jan-2016 Active Supplies [...] History of Colonoscopy History of Pacemaker Placement Procedures not documented Immunization Name Dates Details [...] smoker Vital Signs Date Test Result Details 13-Mar-2016 15:42 BP Systolic 138 mm[Hg] Status: Comments: Location: ; Position: BP Diastolic 88 mm[Hg] Status: Comments: Location: ; Position: Temperature 97.1 f Status: Heart Rate 69 /min Status: Comments: Location: ; Weight 129 lb Status: Physical Findings 96 Status: Comments: O2 Saturation Body Mass Index Calculated 20.82 kg/m2 Status: Body Surface Area Calculated 1.66 m2 Status: 15:03 BP Systolic 120 mm[Hg] Status: Comments: Location: LUE; Position: Sitting BP Diastolic 64 mm[Hg] Status: Comments: Location: LUE; Position: Sitting Temperature 97.8 f Status: Comments: Method: Oral Heart Rate 73 /min Status: Comments: Location: ; Weight 137 lb Status: Physical Findings 97 Status: Comments: O2 Saturation Body Mass Index Calculated 22.11 kg/m2 Status: Body Surface Area Calculated 1.7 m2 Status: 15:15 BP Systolic 118 mm[Hg] Status: Comments: Location: ; Position: BP Diastolic 82 mm[Hg] Status: Comments: Location: ; Position: Heart Rate 63 /min Status: Comments: Location: ; Height 66 in Status: Weight 140 lb Status: Physical Findings 93 Status: Comments: O2 Saturation Body Mass Index Calculated 22.6 kg/m2 Status: Body Surface Area Calculated 1.72 m2 Status: Results Date Description Value Details 14:06 CBC w/ Auto Diff 7150 Comments: Manual differential indicated. WBC 7.4 K/uL Range: 4.5-11.0 RBC 3.68 mil/uL (Below low threshold) Range: 4.20-5.40 HGB 11.3 g/dL (Below low threshold) Range: 14.0-18.0 HCT 34.2 % (Below low threshold) Range: 42.0-53.0 MCV 93.0 fL Range: 80.0-99.0 MCH 30.8 pg Range: 27.3-32.5 MCHC 33.1 % Range: 32.0-36.0 RDW 22.1 % (Above high threshold) Range: 11.6-14.8 PLATELETS 54 K/uL (Below low threshold) Range: 150-400 MPV 9.0 fL Range: 6.0-11.0 14:29 Comprehensive Metabolic Panel 1212 SODIUM 139 mmol/L Range: 133-144 POTASSIUM 4.5 mmol/L Range: 3.5-5.1 CHLORIDE 106 mmol/L Range: 98-110 CARBON DIOXIDE 21.7 mmol/L (Below low threshold) Range: 23.0-33.0 ANION GAP 11 mmol/L Range: 6-16 BUN 29 mg/dL (Above high threshold) Range: 7-18 CREATININE, SERUM 1.22 mg/dL Range: 0.70-1.30 Comments: Please note new reference ranges effective 2015.----- BUN:CREATININE RATIO 24 EST GFR, >60 ml/min Range: >60 EST GFR, NON-AFR [place] 56 ml/min (Below low threshold) Range: >60 Comments: EST GFR is reported in ml/min per 1.73 m2 of body surface area. For -[place], please multiple result by 1.2.----- GLUCOSE 97 mg/dL Range: 70-100 ALK PHOSPHATASE 170 U/L (Above high threshold) Range: 46-116 TOTAL BILIRUBIN 2.00 mg/dL (Above high threshold) Range: 0.20-1.00 AST 31 U/L Range: 8-35 ALT 28 U/L Range: 16-63 Comments: Please note new reference ranges. Effective 10/22/2014.----- ALBUMIN 3.6 g/dL Range: 3.4-5.0 TOTAL PROTEIN 6.7 g/dL Range: 6.4-8.2 A/G RATIO 1.2 units Range: 1.0-1.8 CALCIUM 8.3 mg/dL (Below low threshold) Range: 8.5-10.1 14:34 BNP 3103 BNP 186.2 pg/mL (Above high threshold) Range: 0.0-100.0 14:38 Manual Differential 7400 SEGS 73 % Range: 37-80 BANDS 2 % Range: 0-7 LYMPH 16 % Range: 13-50 MONO 7 % Range: 0-12 EOSIN 2 % Range: 0-7 BASO 0 % Range: 0-3 OFE LYMPH 0 % Range: 0-0 META 0 % Range: 0-0 MYELO 0 % Range: 0-0 PRO 0 % Range: 0-0 BLAST 0 % Range: 0-0 NUC RBC 0 /100 WBC Range: 0-0 SMUDGE 0 /100 WBC PLATELET Decreased (Abnormal) Range: Adequate ANISO Marked MACROCYT Slight 14:41 THYROID STIM. HORMONE 3602 THYROID STIM. HORMONE 0.151 uIU/mL (Below low threshold) Range: 0.550- 4.780 Comments: PLEASE NOTE: Patients undergoing fuorescein dye angiography within the last 72 hours can produce falsely depressed TSH values with current methodology.No established reference ranges for infants and children <2 years of age----- 14:41 FREE T4 3604 FREE T4 0.94 ng/dL Range: 0.80-1.67 13:11 Triiodothyronine,Free,Serum ( T3) [id number] Comments: Testing performed at: [facility], [address] [place] [address], [place], [address], , Director Of Retail: RAND Ashley MD TRIIODOTHYRONINE,FREE,SERUM 3.9 pg/mL Range: 2.0-4.4 13-Mar-2016 16:24 ECG/ EKG CP - Electro CardioGram ECG/ EKG Cardiology Read 21-Mar-2016 14:40 CBC w/ Manual Diff 7225 WBC 4.5 K/uL Range: 4.5-11.0 RBC 3.51 mil/uL (Below low threshold) Range: 4.20-5.40 HGB 10.6 g/dL (Below low threshold) Range: 14.0-18.0 HCT 32.2 % (Below low threshold) Range: 42.0-53.0 MCV 91.8 fL Range: 80.0-99.0 MCH 30.3 pg Range: 27.3-32.5 MCHC 33.0 % Range: 32.0-36.0 RDW 20.0 % (Above high threshold) Range: 11.6-14.8 PLATELETS 48 K/uL (Below low threshold) Range: 150-400 MPV 8.5 fL Range: 6.0-11.0 NEUTRO 3.6 K/uL Range: 2.0-6.9 SEGS 68 % Range: 37-80 BANDS 1 % Range: 0-7 LYMPH 19 % Range: 13-50 MONO 4 % Range: 0-12 EOSIN 6 % Range: 0-7 BASO 1 % Range: 0-3 OFE LYMPH 0 % Range: 0-0 META 0 % Range: 0-0 MYELO 1 % (Above high threshold) Range: 0-0 PRO 0 % Range: 0-0 BLAST 0 % Range: 0-0 NUC RBC 0 /100 WBC Range: 0-0 SMUDGE 0 /100 WBC PLATELET Decreased (Abnormal) Range: Adequate ANISO Mod 15:56 D - DIMER 7505 Comments: Critical result called to Ghislaine by Lakshmi Cordova on 03/21/2016 at 4:01 PM (DDIME) D-DIMER 0.46 ug/mL (High alert) Range: 0.00-0.26 Comments: For patients with low clinical probability of PE of DVT, D-Dimer results of 0.25 ug/mL and less have an excellent negative predictive value in excluding a diagnosis of acute PE or EVT. However, a thromboembolic event cannot be excluded when D-Dimer values are greater than 0.25 ug/mL.----- 28-Mar-2016 15:07 CBC w/ Manual Diff 7225 WBC 4.7 K/uL Range: 4.5-11.0 RBC 3.44 mil/uL (Below low threshold) Range: 4.20-5.40 HGB 10.4 g/dL (Below low threshold) Range: 14.0-18.0 HCT 31.3 % (Below low threshold) Range: 42.0-53.0 MCV 90.8 fL Range: 80.0-99.0 MCH 30.3 pg Range: 27.3-32.5 MCHC 33.4 % Range: 32.0-36.0 RDW 19.5 % (Above high threshold) Range: 11.6-14.8 PLATELETS 39 K/uL (Below low threshold) Range: 150-400 MPV 8.9 fL Range: 6.0-11.0 NEUTRO 3.7 K/uL Range: 2.0-6.9 SEGS 75 % Range: 37-80 BANDS 2 % Range: 0-7 LYMPH 13 % Range: 13-50 MONO 10 % Range: 0-12 EOSIN 0 % Range: 0-7 BASO 0 % Range: 0-3 OFE LYMPH 0 % Range: 0-0 META 0 % Range: 0-0 MYELO 0 % Range: 0-0 PRO 0 % Range: 0-0 BLAST 0 % Range: 0-0 NUC RBC 0 /100 WBC Range: 0-0 SMUDGE 0 /100 WBC PLATELET Adequate Range: Adequate ANISO Mod Plan of Care Name Dates Details Planned Observations Planned Goals not documented Instructions Name Dates Details Instructions not documented Encounters Appointment; Aaron Roy M.D. Encounter Diagnosis: Problem [...]
--- OUTSIDE RECORDS SUMMARY | 2016-12-11 09:56 | XMS REPORT | Summary of Care ---
Author Author Manuela Morrison, Donis Organization Unknown Address Unknown Phone Unavailable Care Team Providers Care Sleeve Fixer Name Role Phone Yudi Yarbrough Unavailable Hannah [...] as needed * Quantity: 60 Refills: 3 [place] leon M.D. * Start 11-Jan-2016 Active Calcium [...] MOUTH DAILY * Quantity: 30 Refills: 11 [place] M.D. * Start 18-Aug-2016 Active Imodium [...] Start 09-Oct-2016 Active 30 ML Tube Nystatin [id number] UNIT/ML Mouth/Throat Suspension SWISH AND SWALLOW 5ML [...] History of Pacemaker Placement History of Esophagogastroduodenoscopy Procedures not documented Immunization Name Dates Details Fluzone High-Dose SUSP on: 18-Jul-2016 Fluzone High-Dose 0.5 ML Intramuscular Suspension Prefilled Syringe Lot #: [id number] on: 18-Jul-2016 Family History Name Dates Details [...] >60 ml/min Range: >60 EST GFR, NON-AFR [place] 60 ml/min (Below low threshold) Range: >60 [...] >60 ml/min Range: >60 EST GFR, NON-AFR [place] >60 ml/min Range: >60 Comments: EST GFR [...] 1155 URIC ACID 3.3 mg/dL Range: 2.6-7.2 Plan of Care Name Dates Details Planned [...]
--- OUTSIDE RECORDS SUMMARY | 2016-12-11 09:56 | XMS REPORT | Summary of Care ---
Author Author Donis Roy M.D. Organization Unknown Address [address], [place] [id number] Phone Unavailable Care Team Providers Care Model And Mold Maker Name Role Phone Donis Roy M.D. Unavailable Unavailable Tatum Morrison, Michelle Unavailable Unavailable Donis Roy PP Unavailable Unavailable Unavailable Functional Status Functional [...] Chronic kidney disease (585.9, N18.9) Status: Active Restless leg syndrome (333.94, G25.81) Status: Active Hypertension (401.9, I10) Status: Active Pulmonary hypertension (416.8, I27.2) Status: Active Medications Name Dates Details Metoprolol Tartrate 50 MG Oral Tablet TAKE 1/2 TABLET TWICE DAILY. Griffin Winn M.D.* Started 2-Laura-2015 [place] Thyroid 60 MG Oral Tablet Take 2 tab daily alternating with 2 1/2 tab every other day * Quantity: 180 Refills: 0 Donis Roy M.D.* Started ActivePravastatin Sodium 10 MG Oral Tablet TAKE 1 TABLET DAILY. * Refills: 0 Griffin Winn M.D.* Started ActiveMulti Vitamin Mens Oral Tablet TAKE 1 TABLET DAILY. * Refills: 0 Griffin Winn M.D.* Started ActiveLosartan Potassium 50 MG Oral Tablet TAKE 1 TABLET DAILY. * Refills: 0 Donis Roy M.D.* Started 11-Jan-2016 ActiveAllopurinol 300 MG Oral Tablet TAKE 1 TABLET DAILY. * Refills: 0 Donis Roy M.D.* Started 11-Jan-2016 ActiveEliquis 5 MG Oral Tablet take 1 po bid * Quantity: 60 Refills: 6 Donis Roy M.D.* Started 11-Jan-2016 ActiveLasix 20 MG Oral Tablet TAKE 1 TABLET DAILY. * Refills: 0 Donis Roy M.D.* Started 11-Jan-2016 ActiveCalcium Carbonate 500 (200 Ca) MG Oral Wafer Take 1 daily * Refills: 0 Donis Roy M.D.* Started 11-Jan-2016 ActiveVitamin B Complex Oral Tablet TAKE 1 TABLET DAILY. * Refills: 0 Donis Roy M.D.* Started 11-Jan-2016 ActiveVitamin C 500 MG Oral Tablet Chewable CHEW AND SWALLOW 1 TABLET DAILY. * Refills: 0 Donis Roy M.D.* Started 11-Jan-2016 ActiveSaw [place] Oral Capsule TAKE 1 CAPSULE DAILY. * Refills: 0 Donis Roy M.D.* Started 11-Jan-2016 Active Allergies and Adverse Reactions Name Dates Details Flecainide Acetate TABS Status: Active Past Medical History Name Dates [...] History of Hip Repair History of Colonoscopy Triiodothyronine,Free,Serum ( T3) 903478 Ordered:11-Jan-2016 CBC w/ Auto Diff 7150 Ordered:11-Jan-2016 Comprehensive Metabolic Panel 1212 Ordered:11-Jan-2016 PSA ( PROSTATE SPECIFIC ANTIGEN) 3100 Ordered:11-Jan-2016 Immunization Name Dates Details Immunizations not documented Family History Mother* Name Dates Details Family history of lung cancer (V16.1, Z80.1) Status: Active Father* Name Dates Details Family history of cerebrovascular accident (CVA) (V17.1, Z82.3) Status: Active Brother* Name Dates Details Family history of Bone cancer (170.9, C41.9) Status: Active Social History Name Dates Details Smoking Status* Never smoker Vital Signs Date Test Result Details 11-Jan-2016 10:19 BP Systolic 124 mm[Hg] Status: BP Diastolic 62 mm[Hg] Status: Temperature 98 f Status: Heart Rate 62 /min Status: Weight 135 lb Status: O2 SAT 92 % Status: Body Mass Index Calculated 21.79 kg/m2 Status: Body Surface Area Calculated 1.69 m2 Status: Results Date Description Value Details Results not documented Plan of Care Planned Observations* Name Dates Details Planned Goals not documented Goal Instructions * Instructions not documented Encounters Appointment; Donis Roy Encounter Diagnosis: Problem not documented On 11-Jan-2016 10:45 Appointment; Josep Dao Encounter Diagnosis: Problem not documented On 15-Nov-2015 14:45 Appointment; Griffin Winn Encounter Diagnosis: Problem not documented On 15-Apr-2015 10:30 Appointment; Griffin Winn Encounter Diagnosis: Problem not documented On 13:00
--- OUTSIDE RECORDS SUMMARY | 2016-12-11 09:56 | XMS REPORT ---
Author Author Eden Pyle Organization [employer] Address Unknown Phone Unavailable Care Team Providers Care Physical Science Technician Name Role Phone Eden Pyle CP Unavailable Allergies, Adverse Reactions, Alerts Substance Reaction Event Type N.K.D.A. 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 Problem Fatigue 780.79 Active Problem Hyperlipidemia 272.4 Active Assessment Presence of cardiac pacemaker Z95.0 Active Problem S/P Aortic Valve Replacement V43.3 Active Problem Hypertension 401.9 Active Medications Medication Code System Code Instructions Start Date End Date Status Dosage Vitamin B Complex [facility] [address]78-[address]88 Orally qd 1 tab Pravastatin Sodium [facility] [address]-71 10mg Orally Once a day 1 tablet Aspirin [facility] [address]-30 81 MG Orally qod 1 tablet [place] Thyroid [facility] [address]-10 60 MG Orally 2 & 1/2 tab qod 2 tabs qod Metoprolol Tartrate [facility] [address]-36 50 MG Orally Twice a day 1/ 2 tab Losartan Potassium-HCTZ [facility] [address]-02 50-12.5 MG Orally Once a day 1 tablet Multivitamins [facility] 69705-[address]192 Orally Once a day 1 tablet Calcium [facility] [address]-17 Orally Twice a day 1 tablet Procedures Procedure Coding System Code Date Ofc Interrogation PM, Staff CPT-4 34430 May 26, 2015 ELECTROCARDIOGRAM, COMPLETE CPT-4 02844 May 26, 2015 Office Visit, Est Pt., Level 3 CPT-4 89721 May 26, 2015 Vital Signs Date/Time: May 26, 2015 BMI 21.14 Index Weight 135 lbs Height 5 ft 7 in in Cardiac Monitoring Heart Rate 83 /min Oximetry 98 % Blood Pressure Diastolic 76 mm Hg Blood Pressure Systolic 118 mm Hg Results No Known Results Summary Purpose [employer] Submission
--- OUTSIDE RECORDS SUMMARY | 2016-12-11 09:57 | XMS REPORT | Summary of Care ---
Author Author Aaron Roy M.D. Organization Unknown Address Unknown Phone Unavailable Care Team Providers Care Furnace Filler Name Role Phone uYdi Yarbrough Unavailable Donis Oviedo M.D. Unavailable Aaron [...] TWICE DAILY. Quantity: 60 * Start Active [place] Thyroid 60 MG Oral Tablet TAKE TWO [...] Wafer Take 2 daily * Refills: 0 [place] M.DDonis Collins * Start 11-Jan-2016 Active Supplies [...] NOT EXCEED 8 TABLETS/DAY. * Refills: 0 [place] M.Donis Bermudez * Start 18-Aug-2016 Active Acetaminophen 325 MG Oral Tablet Take 2 tabs po every 4 hours PRN * Refills: 0 [place] M.D.Donis * Start 18-Aug-2016 Active Lidocaine HCl - 2 % External Gel Apply QID PRN * Quantity: 1 Refills: 2 [place] M.D.Donis * Start 09-Oct-2016 Active 30 ML [...] ML Intramuscular Suspension Prefilled Syringe Lot #: [id number] on: 18-Jul-2016 Family History Name Dates Details [...] BP Systolic 102 mm[Hg] Status: Comments: Location: E; Position: Sitting BP Diastolic 58 mm[Hg] Status: Comments: Location: [facility]; Position: Sitting Heart Rate 77 /min Status: [...] >60 ml/min Range: >60 EST GFR, NON-AFR [place] 60 ml/min (Below low threshold) Range: >60 [...] Labs/Procedures/Imaging* CBC w/ Auto Diff 7150; Done: Oct 17 2016 9:40AM Instructions Name Dates Details Instructions not documented [...]
--- OUTSIDE RECORDS SUMMARY | 2016-12-11 09:57 | XMS REPORT ---
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 651387612 Assessment Sleep apnea G47.30 Sep, Active 25920917 Assessment Atrial fibrillation I48.91 Sep, Active 41109672 Problem Hyperlipidemia 272.4 Active 69966885 Problem Hypertension 401.9 Active 81852591 Problem Atrial fibrillation I48.91 Active 27887461 Problem Presence of cardiac pacemaker Z95.0 Active 054700504 Problem Hyperlipidemia, unspecified E78.5 Active 11650076 Problem Fatigue 780.79 Active 19809732 Problem 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 848436442510050 Problem Essential (primary) hypertension I10 Active 92695878 ALLERGIES Substance Reaction Event Type Date Status Indomethacin bone marrow effect with bleeding Non Drug Allergy Sep, Active SOCIAL HISTORY No smoking Hx information available PLAN OF CARE VITAL SIGNS Height 5 ft 7 in in 2016-09-27 Weight 132 lbs 2016-09-27 BMI 20.67 kg/m2 2016-09-27 Oximetry 93 % 2016-09-27 Heart Rate 70 /min 2016-09-27 Blood pressure systolic 128 mm Hg 2016-09-27 Blood pressure diastolic 70 mm Hg 2016-09-27 MEDICATIONS Medication Instructions Dosage Frequency Start Date End Date Duration Status Allopurinol 300 MG Orally Once a day 1 1/2 tablet 24h Active Eliquis 5 MG Orally bid 1 tablet 12h Active Calcium 500 MG Orally Twice a day 1 tablet with meals 12h Active Losartan Potassium-HCTZ 50-12.5 MG Orally Once a day 1 tablet 24h Active Imodium A-D 2 MG Orally 8 time(s) a day 1 tablet Active Furosemide 20 MG Orally Twice a day 2 tablet 12h Active Pravastatin Sodium 10mg Orally Once a day 1 tablet 24h Active Metoprolol Tartrate 50 MG Orally Twice a day 1/2 tab 12h Active Tylenol 325 MG Orally every 6 hrs 2 tablets as needed 6h Active [place] Thyroid 60 MG Orally qod 2.5 tabs Active Milk of Magnesia 400 MG/5ML Orally Four times a day 5 ml as needed 6h Active Pantoprazole Sodium 40 MG Orally Once a day 1 tablet 24h Active RESULTS No Results PROCEDURES Procedure Date Ordered Related Diagnosis Body Site Office Visit, Est Pt., Level 3 Sep 27, 2016 Ofc Interrogation PM, Staff Sep 27, 2016 IMMUNIZATIONS No Known Immunizations
--- OUTSIDE RECORDS SUMMARY | 2016-12-11 09:57 | XMS REPORT | Summary of Care ---
Author Author Manuela Morrison, Donis Organization Unknown Address Unknown Phone Unavailable Care Team Providers Care Locks Inspector Name Role Phone Yudi Yarbrough Unavailable [...] Active Atrial fibrillation (427.31, I48.91) Status: Active Pulmonary hypertension (416.8, I27.2) Status: Active Head pain (784.0, R51) Status: Active Mouth sores (528.9, K13.79) Status: Active Candidiasis, mouth (112.0, B37.0) Status: Active Anemia (285.9, D64.9) Status: Active Gout (274.9, M10.9) Status: Active Chronic kidney disease (585.9, N18.9) Status: Active UTI (urinary tract infection) (599.0, N39.0) Status: Active Hypersomnolence (780.54, G47.10) Status: Active Obstructive sleep apnea syndrome, severe (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 Quantity: 60 * Start Active [place] Thyroid 60 MG Oral Tablet TAKE TWO [...] tabs daily. * Quantity: 135 Refills: 3 [place]carolyn Morrison, Aaron * Start 11-Jan-2016 Active Furosemide 20 MG Oral Tablet TAKE ONE TO TWO TABLETS BY MOUTH ONCE DAILY NEEDED * Quantity: 60 Refills: 11 Manuela M.D.Donis * Start 28-Oct-2016 Active Calcium Carbonate 500 (200 Ca) MG Oral Wafer Take 2 daily * Refills: 0 Manuela MDonis Mitchell * Start 11-Jan-2016 Active Supplies Auto CPAP [...] MOUTH DAILY * Quantity: 30 Refills: 11 [place] M.Michelle.Donis * Start 18-Aug-2016 Active Imodium A-D [...] QID PRN * Quantity: 1 Refills: 2 [place] M.D.Donis * Start 09-Oct-2016 Active 30 ML Tube Nystatin 526217 UNIT/ML Mouth/Throat Suspension SWISH AND SWALLOW 5ML 4 TIMES DAILY. * Quantity: 200 Refills: 0 Manuela M.Donis Bermudez * Start 18-Oct-2016 Active Eliquis 5 MG Oral Tablet take 1 tab bid * Quantity: 180 Refills: 4 [place] M.D.Donis * Start 15-Nov-2016 Active Allergies and Adverse Reactions Name Dates [...] ML Intramuscular Suspension Prefilled Syringe Lot #: [id number] on: 18-Jul-2016 Family History Name Dates Details [...] smoker Vital Signs Date Test Result Details 15-Nov-2016 10:57 BP Systolic 102 mm[Hg] Status: Comments: Location: RUE; Position: Sitting BP Diastolic 68 mm[Hg] Status: Comments: Location: RUE; Position: Sitting Heart Rate 91 /min Status: Comments: Location: ; Height 66 in Status: Weight 28 lb Status: Physical Findings 98 Status: Comments: O2 Saturation Body Mass Index Calculated 4.52 kg/m2 Status: Body Surface Area Calculated 0.87 m2 Status: 07-Nov-2016 10:04 BP Systolic 100 mm[Hg] Status: Comments: Location: LUE; Position: Sitting BP Diastolic 64 mm[Hg] Status: Comments: Location: LUE; Position: Sitting Temperature 98.1 f Status: Comments: [...] >60 ml/min Range: >60 EST GFR, NON-AFR INDONESIAN >60 ml/min Range: >60 Comments: EST GFR [...] 11:03 Urinalysis, reflex to Micro and Culture ([facility]) 2462 Comments: Testing performed by [facility], [address], [place] [address] Testing performed by [facility], [address], [place] [address] pH 6.0 Range: 5.0-7.5 SP GRAVITY 1.015 [...] Slight OVAL Present 10-Nov-2016 09:26 URINE CULTURE [id number] Comments: [facility], [address] [place], [address], Restaurant Bartender: Cameron Beaulieu D.O., MPHQuest Collection Date/Time: [id number] Results Received Date/Time: [id number] Reported Date/Time: [id number] FASTING:NOQuest performed at: [facility], [address] [place], [address], Restaurant Bartender: Cameron Beaulieu D.O., MPHQuest Collection Date/Time: [id number] Results Received Date/Time: [id number] Reported Date/Time: [id number] FASTING:NO CULTURE, URINE, ROUTINE SEE NOTE (Abnormal) Comments: CULTURE, URINE, ROUTINE MICRO NUMBER: [id number] TEST STATUS: FINAL SPECIMEN SOURCE : URINE [...] to to confirm susceptibility to parenteral cefazolin.[KS]----- 14-Nov-2016 14:15 CBC w/ Auto Diff 7150 WBC 4.9 K/uL Range: 4.5-11.0 RBC 2.74 mil/uL (Below low threshold) Range: 4.20-5.40 HGB 8.9 g/dL (Below low threshold) Range: 14.0-18.0 HCT 26.9 % (Below low threshold) Range: 42.0-53.0 MCV 98.3 fL Range: 80.0-99.0 MCH 32.5 pg Range: 27.3-32.5 MCHC 33.1 % Range: 32.0-36.0 RDW 20.9 % (Above high threshold) Range: 11.6-14.8 PLATELETS 57 K/uL (Below low threshold) Range: 150-400 MPV 8.2 fL Range: 6.0-11.0 %NEUTRO 76.5 % Range: 37.0-80.0 %LYMPHS 14.1 % Range: 13.0-50.0 %MONO 5.0 % Range: 0.0-12.0 %EOS 2.7 % Range: 0.0-7.0 %BASO 0.4 % Range: 0.0-2.5 %BAY 1.4 % Range: 0.0-5.0 NEUTRO 3.8 K/uL Range: 2.0-6.9 LYMPHS 0.7 K/uL Range: 0.6-3.4 MONOS 0.3 K/uL Range: 0.0-0.9 EOS 0.1 K/uL Range: 0.0-0.7 BASO 0.0 K/uL Range: 0.0-0.2 Plan of Care Name Dates Details Planned Observations CBC w/ Auto Diff 7150 On Intent Comprehensive Metabolic Panel 1212 On Intent URIC ACID 1155 On Intent Planned Goals not documented Planned Encounters Appointment; Provider: Tracy Alba A.P.R.N. On 14:45 Appointment; Provider: Donis Roy M.D. On 09:00 Interventions Provided Medication Changes* Sulfamethoxazole-Trimethoprim 800-160 MG Oral Tablet - Start Instructions Name Dates Details Instructions [...]
--- OUTSIDE RECORDS SUMMARY | 2016-12-11 09:57 | XMS REPORT | Summary of Care ---
Author Author Manuela Morrison, Donis Organization Unknown Address Unknown Phone Unavailable Care Team Providers Care Dramatic Agent Name Role Phone Yudi Yarbrough Unavailable Unavailable [...] Active Chest pain (786.50, R07.9) Status: Active Medications Name Dates Details Metoprolol Tartrate 50 MG Oral Tablet TAKE 1/2 TABLET TWICE DAILY. Griffin Winn M.D. * Start Active [place] Thyroid 60 MG Oral Tablet Take 2 tab daily alternating with 2 1/2 tab every other day * Quantity: 180 Refills: 0 [place] M.D., Donis * Start Active Pravastatin Sodium 10 MG Oral Tablet TAKE 1 TABLET DAILY. * Refills: 0 Griffin Winn M.D. * Start Active Multi Vitamin Mens Oral Tablet TAKE 1 TABLET DAILY. * Refills: 0 Griffin Winn M.D. * Start Active Losartan Potassium 50 MG Oral Tablet TAKE 1 TABLET DAILY. * Quantity: 90 Refills: 3 Manuela M.D.Donis * Start 11-Jan-2016 Active Allopurinol 300 MG Oral Tablet TAKE 1 TABLET DAILY. * Refills: 0 Cass M.D.Donis * Start 11-Jan-2016 Active Eliquis 5 MG Oral Tablet Take twice daily * Quantity: 60 Refills: 6 [place] M.D.LindyDonis * Start 11-Jan-2016 Active Lasix 40 MG Oral Tablet TAKE 1 TABLET DAILY. * Quantity: 30 Refills: 6 [place] M.D., Donis * Start 11-Jan-2016 Active Calcium Carbonate 500 (200 Ca) MG Oral Wafer Take 1 daily * Refills: 0 [place] M.D., Donis * Start 11-Jan-2016 Active Vitamin B Complex Oral Tablet TAKE 1 TABLET DAILY. * Refills: 0 [place] M.D., Donis * Start 11-Jan-2016 Active Vitamin C 500 MG Oral Tablet Chewable CHEW AND SWALLOW 1 TABLET DAILY. * Refills: 0 Cass M.D., Donis * Start 11-Jan-2016 Active Saw [place] Oral Capsule TAKE 1 CAPSULE DAILY. * Refills: 0 Donis Roy M.D. * [...] History of Colonoscopy History of Pacemaker Placement CBC w/ Manual Diff 7225 Ordered: 16-Mar-2016 CBC w/ Manual Diff 7225 Ordered: 16-Mar-2016 Immunization Name Dates Details Immunizations not documented [...] >60 ml/min Range: >60 EST GFR, NON-AFR ROMANIAN 56 ml/min (Below low threshold) Range: >60 Comments: EST GFR is reported in ml/min per 1.73 m2 of body surface area. For -Ecuadorean, please multiple result by 1.2.----- GLUCOSE 97 [...] ng/dL Range: 0.80-1.67 13:11 Triiodothyronine,Free,Serum ( T3) [id number] Comments: [facility] performed at: [facility], [address] [place] [address], [place], [address], , Hunter Guide: RAND Ashley MD TRIIODOTHYRONINE,FREE,SERUM 3.9 pg/mL Range: [...] D-Dimer values are greater than 0.25 ug/mL.----- Plan of Care Name Dates Details Planned [...]
--- OUTSIDE RECORDS SUMMARY | 2016-12-11 09:58 | XMS REPORT | Summary of Care ---
Author Author Manuela Morrison, Donis Organization Unknown Address Unknown Phone Unavailable Care Team Providers Care Medical Secretary Teacher Name Role Phone Yudi Yarbrough Unavailable Unavailable [...] DAILY. Griffin Winn M.D. * Start Active [place] Thyroid 60 MG Oral Tablet Take 2 tab daily alternating with 2 1/2 tab every other day * Quantity: 180 Refills: 0 [place] M.D., Donis * Start Active Pravastatin Sodium [...] TAKE 1 TABLET DAILY. * Refills: 0 [place] M.D.Donis * Start 11-Jan-2016 Active Eliquis 5 MG Oral Tablet Take twice daily * Quantity: 60 Refills: 6 [place] M.D.LindyDonis * Start 11-Jan-2016 Active Lasix 40 MG Oral Tablet TAKE 1 TABLET DAILY. * Quantity: 30 Refills: 6 [place] M.D., Donis * Start 11-Jan-2016 Active Calcium Carbonate 500 (200 Ca) MG Oral Wafer Take 1 daily * Refills: 0 [place] M.D., Donis * Start 11-Jan-2016 Active Vitamin B Complex Oral Tablet TAKE 1 TABLET DAILY. * Refills: 0 [place] M.D., Donis * Start 11-Jan-2016 Active Vitamin C 500 MG Oral Tablet Chewable CHEW AND SWALLOW 1 TABLET DAILY. * Refills: 0 [place] M.D., Donis * Start 11-Jan-2016 Active Saw [place] Oral Capsule TAKE 1 CAPSULE DAILY. * [...] >60 ml/min Range: >60 EST GFR, NON-AFR [place] 56 ml/min (Below low threshold) Range: >60 Comments: EST GFR is reported in ml/min per 1.73 m2 of body surface area. For -Solomon Islander, please multiple result by 1.2.----- GLUCOSE 97 [...] ng/dL Range: 0.80-1.67 13:11 Triiodothyronine,Free,Serum ( T3) [id number] Comments: Testing performed at: [facility], [address] [place] [address] [address], [place], [address], , Adult Basic Education Teacher: RAND Ashley MD TRIIODOTHYRONINE,FREE,SERUM 3.9 pg/mL Range: 2.0-4.4 13-Mar-2016 16:24 ECG/ EKG CP - Electro CardioGram ECG/ EKG Cardiology Read Plan of Care Name Dates Details Planned Observations CBC w/ Manual Diff 7225 On 28-Mar-2016 Intent CBC w/ Manual Diff 7225 On 04-Apr-2016 Intent Planned Goals not documented Interventions Provided Labs/Procedures/Imaging* CBC w/ Manual Diff 7225; To be Done: 16 Mar 2016 Instructions Name Dates Details Instructions not [...]
--- OUTSIDE RECORDS SUMMARY | 2016-12-11 09:58 | XMS REPORT | Summary of Care ---
Author Author Manuela Morrison, Donis Organization Unknown Address Unknown Phone Unavailable Care Team Providers Care Union Steward Name Role Phone Yudi Yarbrough Unavailable Hannah [...] TWICE DAILY. Quantity: 60 * Start Active [place] Thyroid 60 MG Oral Tablet TAKE TWO [...] Wafer Take 2 daily * Refills: 0 [place] M.D.Donis * Start 11-Jan-2016 Active Supplies Auto [...] NOT EXCEED 8 TABLETS/DAY. * Refills: 0 [place] M.DDonis Collins * Start 18-Aug-2016 Active Acetaminophen [...] ML Intramuscular Suspension Prefilled Syringe Lot #: [id number] on: 18-Jul-2016 Family History Name Dates Details [...] low threshold) Range: >60 EST GFR, NON-AFR [place] 48 ml/min (Below low threshold) Range: >60 [...] Provider: Tracy Alba A.P.R.N. On 10-Oct-2016 13:00 Interventions Provided Labs/Procedures/Imaging* CBC w/ Auto Diff 7150; To be Done: 05 Sep 2016 Instructions Name Dates Details Instructions [...]
--- OUTSIDE RECORDS SUMMARY | 2016-12-11 09:58 | XMS REPORT | Summary of Care ---
Author Author Michelet Oropeza M.D. 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 Quantity: 60 * Start Active [place] Thyroid 60 MG Oral Tablet TAKE TWO [...] TABLET DAILY. * Quantity: 90 Refills: 3 [place] M.D., Donis * Start 11-Jan-2016 Active Allopurinol 300 MG Oral Tablet Take 1 1/2 tabs daily. * Quantity: 135 Refills: 3 [place] Roy M.D. * Start 11-Jan-2016 Active Furosemide 20 MG Oral Tablet TAKE ONE TO TWO TABLETS BY MOUTH ONCE DAILY NEEDED * Quantity: 60 Refills: 11 Donis Roy M.D. * Start 28-Oct-2016 Active Calcium Carbonate 500 [...] MOUTH DAILY * Quantity: 30 Refills: 11 Donis Roy M.D. * Start 18-Aug-2016 Active Imodium A-D [...] Start 09-Oct-2016 Active 30 ML Tube Nystatin 734037 UNIT/ML Mouth/Throat Suspension SWISH AND SWALLOW 5ML 4 TIMES DAILY. * Quantity: 200 Refills: 0 Donis Roy M.D. * Start 18-Oct-2016 Active Eliquis 5 MG Oral Tablet take 1 tab bid * Quantity: 180 Refills: 4 [place] M.D., Donis * Start 15-Nov-2016 Active Allergies and Adverse [...] ML Intramuscular Suspension Prefilled Syringe Lot #: [id number] on: 18-Jul-2016 Family History Name Dates Details [...] m2 Status: Results Date Description Value Details 24-Oct-2016 14:31 Comprehensive Metabolic Panel 1212 SODIUM 137 mmol/L Range: 133-144 POTASSIUM 4.3 mmol/L Range: 3.5-5.1 CHLORIDE 104 mmol/L Range: 98-110 CARBON DIOXIDE 21.9 mmol/L (Below low threshold) Range: 23.0-33.0 ANION GAP 11 mmol/L Range: 6-16 BUN 28 mg/dL (Above high threshold) Range: 7-18 CREATININE, SERUM 1.10 mg/dL Range: 0.70-1.30 BUN:CREATININE RATIO 25 EST GFR, >60 ml/min Range: >60 EST GFR, NON-AFR [place]SH[place] >60 ml/min Range: >60 Comments: EST GFR [...] 11:03 Urinalysis, reflex to Micro and Culture ([facility]) 0529 Comments: Testing performed by [facility], [address] [place] [address] Testing performed by [facility], [address], [place] [address] pH 6.0 Range: 5.0-7.5 SP GRAVITY 1.015 [...] Slight OVAL Present 10-Nov-2016 09:26 URINE CULTURE [id number] Comments: [facility] performed at: [facility], [address] [place] [address], [address], Information Systems Project Manager: Cameron Beaulieu D.O., MPHQuest Collection Date/Time: [id number] Results Received Date/Time: [id number] Reported Date/Time: [id number] FASTING:NOQuest performed at: [facility], [address] [place] [address], [address], Information Systems Project Manager: Cameron Beaulieu D.O., MPHQuest Collection Date/Time: [id number] Results Received Date/Time: [id number] Reported Date/Time: FASTING:NO CULTURE, URINE, ROUTINE SEE NOTE (Abnormal) Comments: CULTURE, URINE, ROUTINE MICRO NUMBER: [id number] TEST STATUS: FINAL SPECIMEN SOURCE : URINE [...] Appointment; Provider: Donis Roy M.D. On 09:00 Instructions Name Dates Details Instructions not documented [...]
--- OUTSIDE RECORDS SUMMARY | 2016-12-11 09:58 | XMS REPORT | Summary of Care ---
Author Author Manuela Morrison, Donis Organization Unknown Address Unknown Phone Unavailable Care Team Providers Care Roller Bearing Inspector Name Role Phone Yudi Yarbrough Unavailable [...] TWICE DAILY. Quantity: 60 * Start Active [place] Thyroid 60 MG Oral Tablet TAKE TWO [...] MOUTH DAILY * Quantity: 30 Refills: 11 [place] M.Michelle.Donis * Start 18-Aug-2016 Active Imodium A-D [...] QID PRN * Quantity: 1 Refills: 2 [place] M.D.Donis * Start 09-Oct-2016 Active 30 ML Tube Nystatin 910137 UNIT/ML Mouth/Throat Suspension SWISH AND SWALLOW 5ML [...] CBC w/ Auto Diff 7150 Ordered: 07-Nov-2016 CBC w/ Auto Diff 7150 Ordered: 07-Nov-2016 Comprehensive Metabolic Panel 1212 Ordered: 07-Nov-2016 URIC ACID 1155 Ordered: 07-Nov-2016 Immunization Name Dates Details Fluzone High-Dose SUSP on: 18-Jul-2016 Fluzone High-Dose 0.5 ML Intramuscular Suspension Prefilled Syringe Lot #: [id number] on: 18-Jul-2016 Family History Name Dates Details [...] Status: Comments: Location: RUE; Position: Sitting Temperature 97.9 f Status: Comments: Method: Tympanic Heart Rate 86 /min Status: Comments: Location: ; Weight 129 lb Status: Physical Findings 98 Status: Comments: O2 Saturation Body Mass Index Calculated 20.82 kg/m2 Status: Body Surface Area Calculated 1.66 m2 Status: 09-Oct-2016 10:28 BP Systolic 102 mm[Hg] Status: Comments: Location: LUE; Position: Sitting BP Diastolic 60 mm[Hg] Status: Comments: Location: LUE; Position: Sitting Temperature 96.9 f Status: Comments: Method: Tympanic Heart Rate 88 /min Status: Comments: Location: ; Weight 132 lb Status: Physical Findings 93 Status: Comments: O2 Saturation Body Mass Index Calculated 21.31 kg/m2 Status: Body Surface Area Calculated 1.68 m2 Status: Results Date Description Value Details 09-Oct-2016 14:16 Comprehensive Metabolic Panel 1212 SODIUM 138 mmol/L Range: 133-144 POTASSIUM 4.5 mmol/L Range: 3.5-5.1 CHLORIDE 105 mmol/L Range: 98-110 CARBON DIOXIDE 22.9 mmol/L (Below low threshold) Range: 23.0-33.0 ANION GAP 10 mmol/L Range: 6-16 BUN 28 mg/dL (Above high threshold) Range: 7-18 CREATININE, SERUM 1.15 mg/dL Range: 0.70-1.30 BUN:CREATININE RATIO 24 EST GFR, >60 ml/min Range: >60 EST GFR, NON-AFR [place]UEAN 60 ml/min (Below low threshold) Range: >60 [...] >60 ml/min Range: >60 EST GFR, NON-AFR NIUEAN >60 ml/min Range: >60 Comments: EST GFR [...] 11:03 Urinalysis, reflex to Micro and Culture ([facility]) 8016 Comments: Testing performed by [facility], [address], [place] [address] Testing performed by [facility], [address], [place] [address] pH 6.0 Range: 5.0-7.5 SP GRAVITY 1.015 Range: 1.010-1.030 APPEARANCE Cloudy (Abnormal) Range: Clear COLOR Other (Abnormal) Range: Straw-Yellow PROTEIN 30 mg/dL (Abnormal) Range: Negative-Trace GLUCOSE Negative mg/dL Range: Negative KETONES Negative mg/dL Range: Negative BILIRUBIN Negative Range: Negative BLOOD 2+ (Abnormal) Range: Negative UROBIL 0.2 EU/dL Range: 0.2-1.0 NITRITE Negative Range: Negative LEUKOCYTES 3+ (Abnormal) Range: Negative Plan of Care Name Dates Details Planned Observations Planned Goals not documented Planned Encounters Appointment; Provider: Donis Roy M.D. On 09:00 Appointment; Provider: Michelet Oropeza M.D. On 15-Nov-2016 11:00 Interventions Provided Labs/Procedures/Imaging* Urinalysis, reflex to Micro and Culture ([facility]) 8016; Done: 07Nov2016 10:46AM Instructions Name Dates Details Instructions not documented [...]
--- OUTSIDE RECORDS SUMMARY | 2016-12-11 09:58 | XMS REPORT ---
Author Author Eden Pyle Organization [employer] Address Unknown Phone Unavailable Care Team Providers Care Log Operations Coordinator Name Role Phone Eden Pyle CP Unavailable Allergies, Adverse Reactions, Alerts Substance Reaction Event Type N.K.D.A. 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 Assessment Presence of cardiac pacemaker Z95.0 Active Assessment Hyperlipidemia, unspecified E78.5 Active Assessment Atrial fibrillation I48.91 Active Assessment Essential (primary) hypertension I10 Active Problem Hyperlipidemia 272.4 Active Medications Medication Code System Code Instructions Start Date End Date Status Dosage Calcium [facility] [address]-78 Orally Twice a day 1 tablet Multivitamins [facility] [address] Orally Once a day 1 tablet Losartan Potassium-HCTZ [facility] [address]-24 50-12.5 MG Orally Once a day 1 tablet [place] Thyroid [facility] [address]-39 60 MG Orally 2 & 1/2 tab qod 2 tabs qod Eliquis [facility] [address]-68 5mg twice a day Jul 13, 2015 by mouth Aspirin [facility] [address]-67 81 MG Orally qod 1 tablet Vitamin B Complex [facility] [address] Orally qd 1 tab Metoprolol Tartrate [facility] [address]-32 50 MG Orally Twice a day 1/ 2 tab Pravastatin Sodium [facility] [address]-47 10mg Orally Once a day 1 tablet Procedures Procedure Coding System Code Date Ofc Interrogation PM, Staff CPT-4 82033 Jul 13, 2015 Office Visit, Est Pt., Level 3 CPT-4 48555 Jul 13, 2015 Vital Signs Date/Time: Jul 13, 2015 BMI 22.55 Index Weight 144 lbs Height 5 ft 7 in in Cardiac Monitoring Heart Rate 64 /min Oximetry 96% RA % Blood Pressure Diastolic 86 sitting right arm mm Hg Blood Pressure Systolic 110 mm Hg Results No Known Results Summary Purpose [employer] Submission
--- OUTSIDE RECORDS SUMMARY | 2016-12-11 09:59 | XMS REPORT ---
Author Author GENERATED, SYSTEM Organization Unknown Address Unknown Phone Unavailable Care Team Providers Care Cement Gun Operator Name Role Phone MD TUCKER BRIAN PP [phone] Reason For Visit Chief Complaint G47.30 I27.2,DIAGNOSTIC SLEEP STUDY Social History Functional Status Vital [...]
--- OUTSIDE RECORDS SUMMARY | 2016-12-11 09:59 | XMS REPORT | Continuity of Care Document ---
Author Author [facility] Address Unknown Phone Unavailable Care Team Providers Care Mental Measurements Teacher Name Role Phone GARRETT, MARY LOU Rucker MD Primary Care Physician [phone] Insurance Providers Payer Name Policy Number Subscriber Name Relationship Medicare A And B [id number] Delon Pinto 18 Self / Same As Patient Other1 [id number] Delon Pinto 18 Self / Same As Patient Advance Directives Directive Response Recorded Date/Time Advanced Directives Unknown 07/29/16 5:08pm Chief Complaint and Reason for Visit Chief Complaint COLONOSCOPY Reason for Visit Coagulopathy GI bleed Weakness generalized Problems Active Problems Medical Problem Onset Date Status Coagulopathy Unknown Acute GI bleed ~07/29/2016 Acute Weakness generalized Unknown Acute Medications Current Home Medications Medication Dose Units Route Directions Days/Qty Instructions Start Date Furosemide 20 Mg 20-40 Mg ORAL Daily as needed for Edema 60 07/29/16 Losartan Potassium (Cozaar) 50 Mg 50 Mg ORAL Daily 07/29/16 Pravastatin Sodium 10 Mg 10 Mg ORAL Bedtime 07/29/16 Metoprolol Tartrate (Lopressor) 50 Mg 25 Mg ORAL Twice A Day With Meals 07/29/16 Allopurinol 300 Mg 450 Mg ORAL Daily 07/30/16 Thyroid,Pork (Thyroid) 60 Mg 150 Mg ORAL Daily@0700 07/30/16 Multivitamin 1 Each 1 Each ORAL Daily 07/30/16 Pantoprazole Sodium (Protonix) 40 Mg 40 Mg ORAL Daily@0700 30 08/02/16 Past Home Medications Medication Directions Ordered Status Apixaban 5 Mg Tablet, 5 Mg Oral Twice A Day 07/29/16 Discontinued Allopurinol 300 Mg Tablet, 300 Mg Oral Daily 07/29/16 Discontinued Indomethacin 50 Mg Capsule, 100 Mg Oral Three Times A Day as needed for Gout Pain 07/30/16 Discontinued Colchicine 0.6 Mg Tablet, 0.6 Mg Oral Daily 07/30/16 Discontinued Social History Query Response Start Date Stop Date Smoking Status Never smoker Hospital Discharge Instructions Patient's Instructions Instructions Instructions You were admitted for a GI bleed. Your blood thinners (apixaban/Eliquis) has been held. You will need to resume this on August 16, unless otherwise directed by your PCP. You have been started on pantoprazole, please continue to take this until your PCP stops this medication. Please follow up with Surgery in the next 2 weeks. Orders DISCHARGE: Discharge to:: SNF Xfer Skilled Nurse Facill Plan of Care Discharge Date 08/02/16 3:45pm Disposition 03 XFER SNF Prescriptions See Medication Section Follow-up Orders CBC AND MANUAL DIFF PROTIME WITH INR Referrals MARY LOU TUCKER MD ([facility]) - Within 2 weeks Address: [address] [place] [id number] Care Plan and Goals See Discharge Instructions Section Functional Status Query Response Date Recorded Level of Conscious Alert Oriented x4 August 02, 2016 8:07am Movement Moves extremities Weakness August 02, 2016 8:07am Allergies, Adverse Reactions, Alerts No known allergies. Immunizations No immunization records. Vital Signs Acute Vital Signs Vital Response Date/Time Temperature (Fahrenheit) 97.5 08/02/2016 12:30pm Pulse 61 bpm 08/02/2016 12:30pm Respirations 18 08/02/2016 12:30pm Height 5 ft 8 in Weight 135 lb Body Mass Index 20.0 kg/m^2 Results Laboratory Results Test Name Result Units Flags Reference Collection Date/Time Result Date/ Time Comments White Blood Count 9.30 10^3uL 4.0-11.0 08/02/2016 5:50am 08/02/2016 6: 29am Red Blood Count 2.80 10^6uL L 4.50-5.50 08/02/2016 5:50am 08/02/2016 6: 29am Hemoglobin 10.9 g/dL L 13.5-17.0 08/02/2016 1:55pm 08/02/2016 2:06pm Hematocrit 27.10 % L 39.00-50.00 08/02/2016 5:50am 08/02/2016 6:29am Mean Corpuscular Volume 97 FL 80-100 08/02/2016 5:50am 08/02/2016 6: 29am Mean Corpuscular Hemoglobin 32.5 PG 26.0-34.0 08/02/2016 5:50am 2015 6:29am Mean Corpuscular Hemoglobin Concent 33.6 g/dL 31.0-37.0 08/02/2016 5: 50am 08/02/2016 6:29am Red Cell Distribution Width 25.4 % H 11.8-15.6 08/02/2016 5:50am 2015 6:29am Platelet Count 31 10^3uL L 150-450 08/02/2016 5:50am 08/02/2016 6:29am Mean Platelet Volume 11.6 FL H 6.0-9.5 08/02/2016 5:50am 08/02/2016 6: 29am Neutrophils (%) (Auto) 78 % H 51-67 08/02/2016 5:50am 08/02/2016 6:29am Lymphocytes (%) (Auto) 9 % L 20-46 08/02/2016 5:50am 08/02/2016 6:29am Monocytes (%) (Auto) 9 % 3-11 08/02/2016 5:50am 08/02/2016 6:29am Eosinophils (%) (Auto) 2 % 0-4 08/02/2016 5:50am 08/02/2016 6:29am Basophils (%) (Auto) 0 % 0-2 08/02/2016 5:50am 08/02/2016 6:29am Neutrophils # (Auto) 7.2 X10^3 08/02/2016 5:50am 08/02/2016 6:29am Lymphocytes # (Auto) 0.8 X10^3 08/02/2016 5:50am 08/02/2016 6:29am Monocytes # (Auto) 0.8 X10^3 08/02/2016 5:50am 08/02/2016 6:29am Eosinophils # (Auto) 0.2 10^3uL 08/02/2016 5:50am 08/02/2016 6:29am Basophils # (Auto) 0.0 10^3uL 08/02/2016 5:50am 08/02/2016 6:29am Smear Scan MARKED ANISOCYTOSIS SLIGHT POLYCHROMASIA 08/02/2016 5:50am 08/02/2016 6:29am Differential Total Cells Counted 100 08/01/2016 5:30am 08/01/2016 7 :08am Segmented Neutrophils % 75 % H 51-67 08/01/2016 5:30am 08/01/2016 7: 08am Band Neutrophils % 1 % 0-6 08/01/2016 5:30am 08/01/2016 7:08am Lymphocytes % (Manual) 11 % L 20-46 08/01/2016 5:30am 08/01/2016 7:08am Monocytes % (Manual) 8 % 3-11 08/01/2016 5:30am 08/01/2016 7:08am Eosinophils % (Manual) 2 % 0-4 08/01/2016 5:30am 08/01/2016 7:08am Basophils % (Manual) 0 % 0-2 08/01/2016 5:30am 08/01/2016 7:08am Metamyelocytes % 3 % H 0-1 08/01/2016 5:30am 08/01/2016 7:08am Neutrophils # 8.3 # 08/01/2016 5:30am 08/01/2016 7:08am Absolute Band Neutrophils 0.1 # 08/01/2016 5:30am 08/01/2016 7:08am Lymphocytes # 1.2 # 08/01/2016 5:30am 08/01/2016 7:08am Monocytes # 0.9 # 08/01/2016 5:30am 08/01/2016 7:08am Eosinophils # 0.2 # 08/01/2016 5:30am 08/01/2016 7:08am Basophils # (Manual) 0.0 # 08/01/2016 5:30am 08/01/2016 7:08am Myelocytes 1 % 0-1 07/29/2016 3:14pm 07/29/2016 4:30pm Nucleated Red Blood Cells 2 08/01/2016 5:30am 08/01/2016 7:08am Blood Morphology Comment SEE REFERENCE NORMAL 08/01/2016 5:30am 08/01 7:08am Polychromasia MODERATE 08/01/2016 5:30am 08/01/2016 7:08am Poikilocytosis SLIGHT 08/01/2016 5:30am 08/01/2016 7:08am Basophilic Stippling SLIGHT 08/01/2016 5:30am 08/01/2016 7:08am Anisocytosis MODERATE 08/01/2016 5:30am 08/01/2016 7:08am Macrocytosis SLIGHT 07/29/2016 3:14pm 07/29/2016 4:30pm Spherocytes SLIGHT 07/29/2016 3:14pm 07/29/2016 4:30pm Absolute Reticulocyte Count 311 10^3uL H 22-82 07/29/2016 5:15pm 2015 5:56pm Percent Reticulocyte Count 13.59 % H 0.50-1.50 07/29/2016 5:15pm 2015 5:56pm Immature Reticulocyte Fraction 38.50 % H 3.3-12.9 07/29/2016 5:15pm 5:56pm Prothrombin Time 15.8 SEC H 10.0-12.5 07/31/2016 6:00am 07/31/2016 7: 11am Prothromb Time International Ratio 1.4 0.8-1.4 07/31/2016 6:00am 7:11am Fibrinogen 169.0 mg/dL 154.0-429.0 07/29/2016 3:14pm 07/29/2016 7:03pm Volume Urine Centrifuged 12 mL 07/31/2016 6:53pm 07/31/2016 8:38pm Urine Collection Type CLEAN CATCH 07/31/2016 6:53pm 07/31/2016 8: 38pm Urine Color Yellow 07/31/2016 6:53pm 07/31/2016 8:37pm Urine Clarity Clear 07/31/2016 6:53pm 07/31/2016 8:37pm Urine pH 5.5 5.0 - 8.0 07/31/2016 6:53pm 07/31/2016 8:37pm Urine Specific Mineral 1.015 1.005-1.030 07/31/2016 6:53pm 2015 8:37pm Urine Protein Negative Negative 07/31/2016 6:53pm 07/31/2016 8:37pm Urine Glucose (UA) Negative Negative 07/31/2016 6:53pm 07/31/2016 8: 37pm Urine RBC (Auto) 1+ H Negative 07/31/2016 6:53pm 07/31/2016 8:37pm Urine Ketones Negative Negative 07/31/2016 6:53pm 07/31/2016 8:37pm Urine Nitrite Negative Negative 07/31/2016 6:53pm 07/31/2016 8:37pm Urine Bilirubin Negative Negative 07/31/2016 6:53pm 07/31/2016 8: 37pm Urine Urobilinogen 0.2 mg/dL 0.2-1.0 07/31/2016 6:53pm 07/31/2016 8: 37pm Urine Leukocyte Esterase Negative Negative 07/31/2016 6:53pm 2015 8:37pm Urine RBC 0-2 /HPF 07/31/2016 6:53pm 07/31/2016 8:38pm Urine WBC 2-5 /HPF 07/31/2016 6:53pm 07/31/2016 8:38pm Urine Bacteria None Seen /HPF 07/31/2016 6:53pm 07/31/2016 8:38pm Urine Squamous Epithelial Cells 0-2 /LPF 07/31/2016 6:53pm 2015 8:38pm Urine Mucus 1+ 07/31/2016 6:53pm 07/31/2016 8:38pm Urine Hyaline Casts 1+ /LPF 07/31/2016 6:53pm 07/31/2016 8:38pm Sodium Level 145 mmol/L 135-150 08/02/2016 5:50am 08/02/2016 6:44am Potassium Level 3.5 mmol/L 3.5-5.1 08/02/2016 5:50am 08/02/2016 6:44am Chloride Level 117 mmol/L H 98-108 08/02/2016 5:50am 08/02/2016 6:44am Carbon Dioxide Level 17 mmol/L L 22-29 08/02/2016 5:50am 08/02/2016 6: 44am Anion Gap 13.7 MEQ/L 3-15 08/02/2016 5:50am 08/02/2016 6:44am Blood Urea Nitrogen 29 mg/dL H 7-18 08/02/2016 5:50am 08/02/2016 6:44am Creatinine 1.05 mg/dL 0.8-1.5 08/02/2016 5:50am 08/02/2016 6:44am BUN/Creatinine Ratio 39 H 10-20 08/01/2016 5:30am 08/01/2016 6:47am Estimat Glomerular Filtration Rate 80.7 08/02/2016 5:50am 2015 6:44am Estimated GFR (Non- 66.7 08/02/2016 5:50am 2015 6:44am Glucose Level 103 mg/dL 70-110 08/02/2016 5:50am 08/02/2016 6:44am Calculated Osmolality 291 mosm/L 280-300 08/01/2016 5:30am 08/01/2016 6 :47am Calcium Level 7.9 mg/dL L 8.8-10.8 08/02/2016 5:50am 08/02/2016 6:44am Calcium/Ionized Calcium Ratio 4.5 mg/dL 3.8-4.6 08/01/2016 5:30am 08/01 6:47am Phosphorus Level 3.7 mg/dL 2.4-4.9 08/02/2016 5:50am 08/02/2016 6:44am Magnesium Level 3.0 mg/dL # H 1.6-2.3 07/29/2016 3:14pm 07/29/2016 5: 52pm Total Bilirubin 2.9 mg/dL H 0.1-1.0 08/01/2016 5:30am 08/01/2016 6:47am Unconjugated Bilirubin 1.9 mg/dL H 0.1-1.0 07/30/2016 7:15am 07/30/2016 7:46am Alkaline Phosphatase 90 U/L 38-126 08/01/2016 5:30am 08/01/2016 6:47am Aspartate Amino Transf (AST/SGOT) 41 U/L H 15-37 08/01/2016 5:30am 08/01 6:47am Alanine Aminotransferase (ALT/SGPT) 40 U/L 30-65 08/01/2016 5:30am 6:47am Troponin I 0.038 ng/mL 0.010-0.080 07/29/2016 3:14pm 07/29/2016 3:59pm PU-[id number]-[id number]-Type Natriuretic Peptide 7050 pg/mL H 0-450 07/29/2016 3:24pm 07/29/2016 3:59pm <300 ng/mL - HF unlikely Age <50 years, NT-proBNP >450 pg/mL - HF Likely Age 50-75 yrs, NT-proBNP >900 pg/mL - HF Likely Age >75 yrs, NT-proBNP >1800 - HF likely Conjugated Bilirubin 0.0 mg/dL 0.0-0.4 07/30/2016 7:15am 07/30/2016 7: 46am Total Protein 4.8 g/dL L 6.4-8.5 08/01/2016 5:30am 08/01/2016 6:47am Albumin 2.4 g/dL L 3.4-5.0 08/02/2016 5:50am 08/02/2016 6:44am Albumin/Globulin Ratio 1.181 1.1-1.8 08/01/2016 5:30am 08/01/2016 6: 47am Thyroid Stimulating Hormone (TSH) 2.47 uIU/mL 0.46-4.68 07/29/2016 3: 14pm 07/29/2016 6:46pm Lactic Acid Level 1.3 mmol/L 0.7-2.1 07/31/2016 6:00am 07/31/2016 7: 01am Procedures No known history of procedures. Encounters Encounter Location Arrival/Admit Date Discharge/Depart Date Attending Provider Discharged Inpatient [facility] 07/29/16 4:00pm 08/02/16 3:45pm RENETTA MONROE DO Recent Diagnosis Coagulopathy GI bleed Weakness generalized
--- OUTSIDE RECORDS SUMMARY | 2016-12-11 09:59 | XMS REPORT | Referral Summary ---
Author Author [facility] Organization [facility] Address Unknown Phone Unavailable Care Team Providers Care Knowledge Architect Name Role Phone Joe Roy Primary Care Physician [phone] Encounter [facility] [id number] Date(s): 01/11/15 - 01/11/15 [facility] [address] [place], [place] [address] Discharge Diagnosis: Capillary hemangioma Discharge Diagnosis: Solar [...] DAILY, # 100 tabs, 3 Refill(s), eRx: [facility], TAKE ONE-HALF TABLET BY MOUTH TWICE DAILY Start Date: 03/06/14 Status: Ordered multivitamin 1 tabs, Oral, Daily Start Date: 07/01/14 Status: Ordered pravastatin 10 mg oral tablet See Instructions, TAKE ONE TABLET BY MOUTH ONCE DAILY, # 90 tabs, 1 Refill(s), eRx: [facility], TAKE ONE TABLET BY MOUTH [...] fx1 10/08/08 S/P colonoscopy2 08/16/07 [facility] - Acc 10/07/08 rec 2WNL; repeat 10 years Social History Social History Type Response Smoking Status Never smoker Assessment and Plan Extracted from: Title: Office Visit Note Author: Ariel Vizcarra MD Date: 01/11/15 Assessment/Plan 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
--- OUTSIDE RECORDS SUMMARY | 2016-12-11 09:59 | XMS REPORT | Summary of Care ---
Author Author Manuela Morrison, Donis Organization Unknown Address Unknown Phone Unavailable Care Team Providers Care Slubber Tender Name Role Phone Yudi Yarbrough Unavailable Hannah [...] TWICE DAILY. Quantity: 60 * Start Active [place] Thyroid 60 MG Oral Tablet TAKE TWO [...] Wafer Take 2 daily * Refills: 0 Lincoln M.D.Donis * Start 11-Jan-2016 Active Supplies Auto [...] NOT EXCEED 8 TABLETS/DAY. * Refills: 0 Lincoln M.DDonis Collins * Start 18-Aug-2016 Active Acetaminophen [...] Esophagogastroduodenoscopy CBC w/ Auto Diff 7150 Ordered: 05-Sep-2016 Comprehensive Metabolic Panel 1212 Ordered: 05-Sep-2016 URIC ACID 1155 Ordered: 05-Sep-2016 URIC ACID 1155 Ordered: 24-Jul-2016 Immunization Name Dates Details Fluzone High-Dose SUSP on: 18-Jul-2016 Fluzone High-Dose 0.5 ML Intramuscular Suspension Prefilled Syringe Lot #: [id number] on: 18-Jul-2016 Family History Name Dates Details [...] low threshold) Range: >60 EST GFR, NON-AFR [place] 48 ml/min (Below low threshold) Range: >60 [...]
--- OUTSIDE RECORDS SUMMARY | 2016-12-11 09:59 | XMS REPORT | Continuity of Care Document ---
Author Author [facility] Address Unknown Phone Unavailable Care Team Providers Care Nitrocellulose Maker Name Role Phone MARY LOU TUCKER MD Primary Care Physician [phone] Advance Directives Directive Response Recorded Date/Time Advanced Directives Unknown 09/18/16 2:43pm Type Durable Power of Studio Assistant 09/18/16 2:43pm Type Living Will 09/18/16 2:43pm Problems Active Problems Medical Problem Onset Date Status Anemia ~09/18/2016 Acute Coagulopathy Unknown Acute Dyspnea ~09/18/2016 Acute Edema Unknown Acute Fluid overload Unknown Acute GI bleed ~07/29/2016 Acute Headache ~09/18/2016 Acute Pleural effusion ~09/18/2016 Acute Pulmonary edema ~09/18/2016 Acute Shortness of breath Unknown Acute Thrombocytopenia ~09/18/2016 Acute Weakness generalized Unknown Acute Medications Current Home Medications Medication Dose Units Route Directions Days/Qty Instructions Start Date Losartan Potassium (Cozaar) 50 Mg 50 Mg [...] Mg 40 Mg ORAL Daily@0700 30 08/02/16 Calcium Carbonate 500 Mg 1,000 Mg ORAL Daily 08/12/16 Loperamide Hcl 2 Mg 2 Mg ORAL As Directed as needed for Diarrhea 08/29 Acetaminophen 325 Mg 650 Mg ORAL Every 4HRS as needed for Pain/Fever 08/13/16 Apixaban 5 Mg 5 Mg ORAL Twice A Day 60 08/18/16 Furosemide 20 Mg 60 Mg ORAL Bid@09,14 60 08/18/16 Past Home Medications Medication Directions Ordered Status Apixaban 5 Mg Tablet, 5 Mg Oral Twice A Day 07/29/16 Discontinued Furosemide 20 Mg Tablet, 20-40 Mg Oral Daily as needed for Edema 07/29/16 Discontinued Allopurinol 300 Mg Tablet, 300 Mg Oral Daily 07/29/16 Discontinued Indomethacin 50 Mg Capsule, 100 Mg Oral Three Times A Day as needed for Gout Pain 07/30/16 Discontinued Colchicine 0.6 Mg Tablet, 0.6 Mg Oral Daily 07/30/16 Discontinued Social History Query Response Start Date Stop Date Smoking Status Never smoker Hospital Discharge Instructions No hospital discharge instructions. Plan of Care No plan of care. Functional Status No functional status results. Allergies, Adverse Reactions, Alerts No known allergies. Immunizations No immunization records. Vital Signs No known vital signs results. Results No known relevant diagnostic tests, laboratory data and/or discharge summary. Procedures No known history of procedures.
--- OUTSIDE RECORDS SUMMARY | 2016-12-11 09:59 | XMS REPORT | Summary of Care ---
Author Author Griffin Winn M.D. Organization Unknown Address Unknown Phone Unavailable Care Team Providers Care Movie Operator Name Role Phone Yudi Yarbrough Unavailable Donis Oviedo M.D. Unavailable Unavailable Michelle Winn M.D. Unavailable [...] DAILY. Griffin Winn M.D. * Start Active [place] Thyroid 60 MG Oral Tablet Take 2 tab daily alternating with 2 1/2 tab every other day * Quantity: 180 Refills: 0 [place] M.D., Donis * Start Active Pravastatin Sodium [...] TAKE 1 TABLET DAILY. * Refills: 0 [place] M.D., Donis * Start 11-Jan-2016 Active Eliquis 5 MG Oral Tablet Take twice daily * Quantity: 60 Refills: 6 Manuela M.D., Donis * Start 11-Jan-2016 Active Lasix 20 MG Oral Tablet TAKE 1 TABLET DAILY. * Refills: 0 [place] M.D., Donis * Start 11-Jan-2016 Active Calcium Carbonate 500 (200 Ca) MG Oral Wafer Take 1 daily * Refills: 0 [place] M.D., Donis * Start 11-Jan-2016 Active Vitamin B Complex Oral Tablet TAKE 1 TABLET DAILY. * Refills: 0 Manuela M.D., Donis * Start 11-Jan-2016 Active Vitamin C 500 MG Oral Tablet Chewable CHEW AND SWALLOW 1 TABLET DAILY. * Refills: 0 [place] M.D., Donis * Start 11-Jan-2016 Active Saw [place] Oral Capsule TAKE 1 CAPSULE DAILY. * [...] Vital Signs Date Test Result Details 15:15 BP Systolic 118 mm[Hg] Status: Comments: [...] Details Planned Observations Planned Goals not documented Interventions Provided Medication Changes* Supplies - Start Instructions Name Dates Details Instructions [...]
--- OUTSIDE RECORDS SUMMARY | 2016-12-11 09:59 | XMS REPORT | Summary of Care ---
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 Griffin Winn M.D. * Start Active [place] Thyroid 60 MG Oral Tablet TAKE TWO AND ONE-HALF TABLETS BY MOUTH DAILY * Quantity: 180 Refills: 11 Donis Roy M.D. * Start 23-Mar-2016 Active Pravastatin Sodium 10 MG Oral Tablet TAKE 1 TABLET DAILY. * Refills: 0 Griffin Winn M.D. Start Active Multi Vitamin Mens Oral Tablet TAKE 1 TABLET DAILY. * Refills: 0 Griffin Winn M.D. Start Active Losartan Potassium 50 MG Oral Tablet TAKE 1 TABLET DAILY. * Quantity: 90 Refills: 3 Donis Roy M.D. * Start 11-Jan-2016 Active Allopurinol 300 MG Oral Tablet Take 1 1/2 tabs daily. * Quantity: 135 Refills: 3 Aaron Roy M.D. * Start 11-Jan-2016 Active Eliquis 5 MG Oral Tablet Take twice daily * Quantity: 60 Refills: 6 [place] le[place] M.D. * Start 11-Jan-2016 Active Furosemide 20 MG Oral Tablet Take 1-2 tabs po q day as needed * Quantity: 60 Refills: 3 [place] leon M.D. * Start 11-Jan-2016 Active Calcium Carbonate 500 (200 Ca) MG Oral Wafer Take 1 daily * Refills: 0 Donis Roy M.D. * Start 11-Jan-2016 Active Vitamin B Complex Oral Tablet TAKE 1 TABLET DAILY. * Refills: 0 Donis Roy M.D. * Start 11-Jan-2016 Active Vitamin C 500 MG Oral Tablet Chewable CHEW AND SWALLOW 1 TABLET DAILY. * Refills: 0 Manuela M.D.Donis * Start 11-Jan-2016 Active Saw [place] Oral Capsule TAKE 1 CAPSULE DAILY. * Refills: 0 [place] M.D., Donis * Start 11-Jan-2016 Active Supplies Auto CPAP 8-12 cm H2O Permanent use Dx:G47.33 AirSense 10 with heated tubing/ humidity mask headgear filter H2O chamber tubing chinstrap * Quantity: 1 Refills: 0 Andres P.Yudi Jackson * Start Active Supplies Resmed S10 AirCurve 20/15 cm H2O, Permanent use, 327.23, Heated humidity, mask, headgear, filters, heated tubing, water chamber, chinstrap * Quantity: 1 Refills: 0 Griffin Winn M.D. * Start 03-May-2016 Active Indomethacin 50 MG Oral Capsule TAKE 2 CAPSULE 3 times daily PRN Gout Flair * Quantity: 90 Refills: 5 Manuela M.D.Donis * Start 24-Jul-2016 Active PredniSONE 50 MG Oral Tablet take 1 daily for 5 days * Quantity: 5 Refills: 0 [place] M.D., Donis * Start 24-Jul-2016 Active Colchicine 0.6 MG Oral Tablet 2 tabs now then 1 daily X 3 months * Quantity: 90 Refills: 0 [place] M.DDonis Collins * Start 24-Jul-2016 Active Allergies and Adverse Reactions Name Dates [...] ML Intramuscular Suspension Prefilled Syringe Lot #: [id number] on: 18-Jul-2016 Family History Name Dates Details [...] smoker Vital Signs Date Test Result Details 24-Jul-2016 10:56 BP Systolic 110 mm[Hg] Status: Comments: Location: RUE; Position: Sitting BP Diastolic 68 mm[Hg] Status: Comments: Location: RUE; Position: Sitting Temperature 98.8 f Status: Comments: Method: Tympanic Heart Rate 73 /min Status: Comments: Location: ; Weight 138 lb Status: Physical Findings 98 Status: Comments: O2 Saturation Body Mass Index Calculated 22.27 kg/m2 Status: Body Surface Area Calculated 1.71 m2 Status: Results Date Description Value Details 18-Jul-2016 14:42 CBC w/ Manual Diff 7225 Comments: ORDER IN BOOK UNDER JULY WBC 4.9 K/uL Range: 4.5-11.0 RBC 3.12 mil/uL (Below low threshold) Range: 4.20-5.40 HGB 10.1 g/dL (Below low threshold) Range: 14.0-18.0 HCT 28.8 % (Below low threshold) Range: 42.0-53.0 MCV 92.1 fL Range: 80.0-99.0 MCH 32.3 pg Range: 27.3-32.5 MCHC 35.1 % Range: 32.0-36.0 RDW 20.3 % (Above high threshold) Range: 11.6-14.8 PLATELETS 39 K/uL (Below low threshold) Range: 150-400 MPV 7.6 fL Range: 6.0-11.0 NEUTRO 4.0 K/uL Range: 2.0-6.9 SEGS 84 % (Above high threshold) Range: 37-80 BANDS [...] Adequate ANISO Mod MACROCYT Slight OVAL Present 24-Jul-2016 16:03 CBC w/ Manual Diff 7225 [...] PLATELET Decreased (Abnormal) Range: Adequate ANISO Mod Plan of Care Name Dates Details Planned Observations URIC ACID 1155 On 04-Sep-2016 Intent Planned Goals not documented Planned Encounters Appointment; Provider: Donis Roy M.D. On 05-Sep-2016 10:00 Appointment; Provider: Ivone Baer On 25-Aug-2016 09:30 Appointment; Provider: Donis Roy M.D. On 22-Aug-2016 11:00 Interventions Provided Medication Changes* Colchicine 0.6 MG Oral Tablet - Start * Indomethacin 50 MG Oral Capsule - Start * PredniSONE 50 MG Oral Tablet - Start Instructions Name [...]
--- OUTSIDE RECORDS SUMMARY | 2016-12-11 09:59 | XMS REPORT | Referral Summary ---
Author Author [facility] Organization [facility] Address Unknown Phone Unavailable Care Team Providers Care Health Information Clerk Name Role Phone Chaim Roy Primary Care Physician [phone] Encounter [facility] [id number] Date(s): 02/07/16 - 02/07/16 [facility] [address] [place], [place] [address] Discharge Diagnosis: Seborrheic keratoses Discharge Diagnosis: History of skin cancer Discharge Diagnosis: Actinic keratoses Discharge Disposition: 01-Home or Self Care Attending Physician: Jorgito Gomez MD Admitting Physician: Jorgito Gomez MD Vital Signs No data available for [...] DAILY, # 100 tabs, 3 Refill(s), eRx: [facility], TAKE ONE-HALF TABLET BY MOUTH TWICE DAILY Start Date: 07/07/15 Status: Ordered multivitamin 1 tabs, Oral, Daily Start Date: 07/01/14 Status: Ordered pravastatin 10 mg oral tablet See Instructions, TAKE ONE TABLET BY MOUTH ONCE DAILY, # 90 tabs, eRx: [facility], TAKE ONE TABLET BY MOUTH [...] Diagnosis Body Site Destruction (eg, laser surgery, 02/07/16 electrosurgery, cryosurgery, chemosurgery, surgical curettement), premalignant lesions (eg, actinic keratoses); first lesion Destruction (eg, laser surgery, 02/07/16 electrosurgery, cryosurgery, chemosurgery, surgical curettement), premalignant lesions (eg, actinic keratoses); second through 14 lesions, each (List separately in addition to code for first lesion) CT R acetabular fx1 10/08/08 S/P colonoscopy2 08/16/07 [facility] - Acc 10/07/08 rec 2WNL; repeat 10 years Social History Social History Type Response Smoking Status Never smoker Assessment and Plan Extracted from: Title: Office Visit Note Author: Jorgito Gomez MD Date: 02/07/16 Assessment/Plan 1.Actinic keratoses -14 lesions; see physical examination above for locations -Cryotherapy [...] a wide brimmed hat -Return to clinic in3 months -Encouraged pt to schedule an earlier f/u appointment if concerning lesions develop or if treated lesions do not resolve in 6 weeks Ordered: Destruction premalignant lesion 1st 98465 Destruction premalignant lesion 2-14, Each 53765 Office Visit Level 3 Est 51268 2.Seborrheic keratoses -Reassurance regarding the benign nature of these lesions -Discussed ABCDEs of melanoma and recommended monthly skin self-examination -Recommended pt schedule a clinic appointment for anyconcerning lesions Ordered: Office Visit Level 3 Est 51374 3.History of skin cancer -No evidence of recurrence today -Warning signs of non-melanoma skin cancer discussed -Recommended monthly skin self-examination -Discussed proper sun protective behavior including: avoiding the hours of peak sun exposure (10am-2pm), wearing sunscreen SPF 30 or higher and reapplying every 2 hours for prolonged sun exposure, and wearing sun protective clothing including a wide brimmed hat
--- OUTSIDE RECORDS SUMMARY | 2016-12-11 09:59 | XMS REPORT ---
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 Active Assessment Hyperlipidemia, unspecified E78.5 Active Assessment Atrial fibrillation I48.91 Active Assessment Essential (primary) hypertension I10 Active Problem Hyperlipidemia 272.4 Active Medications Medication Code System Code Instructions Start Date End Date Status Dosage Metoprolol Tartrate [facility] [address]-02 50 MG Orally Twice a day 1/ 2 tab Furosemide [facility] [address]-76 40 MG Orally Once a day 1 tablet Eliquis [facility] [address]-65 5 MG Orally bid 1 tablet [place] Thyroid [facility] [address]-71 60 MG Orally qod 2.5 tabs Losartan Potassium-HCTZ [facility] [address]-31 50-12.5 MG Orally Once a day 1 tablet Pravastatin Sodium [facility] [address]-00 10mg Orally Once a day 1 tablet Procedures Procedure Coding System Code Date Ofc Interrogation PM, Staff CPT-4 07463 March 08, 2016 Office Visit, Est Pt., Level 3 CPT-4 39583 March 08, 2016 Vital Signs Date/Time: March 08, 2016 BMI 21.45 Index Weight 137 lbs Height 5 ft 7 in in Cardiac Monitoring Heart Rate 74 /min Oximetry 94 % Blood Pressure Diastolic 68 mm Hg Blood Pressure Systolic 118 mm Hg Results No Known Results Summary Purpose eClinicalWorks Submission
--- OUTSIDE RECORDS SUMMARY | 2016-12-11 09:59 | XMS REPORT | Referral Summary ---
Author Organization Unknown Address Unknown Phone Unavailable Care Team Providers Care Shotblaster Name Role Phone Margarette Esparza Primary Care Physician [phone] Encounter [facility] [id number] Date(s): 10/28/14 - 10/28/14 [facility] [place], Cardiology [address] [place] [address] JAY Molina [address] Discharge Diagnosis: Elevated cholesterol Discharge Diagnosis: Anemia Discharge Diagnosis: Dyspnea Discharge Diagnosis: Aortic valve replaced Discharge Disposition: Home or Self Care Attending Physician: Mahesh Parikh MD Admitting Physician: Mahesh Parikh MD Vital Signs Most recent to 1 oldest [Reference Range]: Peripheral Pulse 68 bpm Rate [60-100 bpm] (10/28/14 1:58 PM) Blood Pressure 100/56 mmHg [90-140/60-90 mmHg] (10/28/14 1:58 PM) Problem List Condition Effective Dates Status [...] other day Start Date: 07/01/14 Status: Ordered calcium gluconate 500 mg oral tablet 1 tabs, Oral, Daily Start Date: 07/01/14 Status: Ordered losartan-hydrochlorothiazide 50 mg-12.5 mg oral tablet 1 tabs, Oral, Daily Start Date: 07/01/14 Status: Ordered Metoprolol Tartrate 50 mg oral tablet See Instructions, TAKE ONE-HALF TABLET BY MOUTH TWICE DAILY, # 100 tabs, 3 Refill(s), eRx: [facility], TAKE ONE-HALF TABLET BY MOUTH TWICE DAILY Special Instructions: TAKE ONE-HALF TABLET BY MOUTH TWICE DAILY Start Date: 03/06/14 Status: Ordered multivitamin 1 tabs, Oral, Daily Start Date: 07/01/14 Status: Ordered pravastatin 10 mg oral tablet 1 tabs, Oral, Daily, # 90 tabs, 3 Refill(s), Pharmacy: [facility], 1 tabs Oral Daily Start Date: 01/16/14 Status: Ordered thyroid desiccated 60 mg oral [...] R acetabular fx1 10/08/08 S/P colonoscopy2 08/16/07 [facility] - Acc 10/07/08 rec 2WNL; repeat 10 years Social History Social History Type Response Smoking Status Never smoker Assessment and Plan Referrals to Other Providers Referred by: Mahesh Parkih MD
--- OUTSIDE RECORDS SUMMARY | 2016-12-11 10:00 | XMS REPORT | Summary of Care ---
Author Author Manuela Morrison, Donis Organization Unknown Address Unknown Phone Unavailable Care Team Providers Care Swimming Pool Attendant Name Role Phone Yudi Yarbrough Unavailable Hannah [...] TWICE DAILY. Quantity: 60 * Start Active [place] Thyroid 60 MG Oral Tablet TAKE TWO [...] MOUTH DAILY * Quantity: 30 Refills: 11 [place] M.Michelle.Donis * Start 18-Aug-2016 Active Imodium A-D [...] QID PRN * Quantity: 1 Refills: 2 [place] M.D.Donis * Start 09-Oct-2016 Active 30 ML Tube Nystatin 405224 UNIT/ML Mouth/Throat Suspension SWISH AND SWALLOW 5ML [...] Ordered: 07-Nov-2016 URIC ACID 1155 Ordered: 07-Nov-2016 CBC w/ Auto Diff 7150 Ordered: 14-Nov-2016 Immunization Name Dates Details Fluzone High-Dose SUSP on: 18-Jul-2016 Fluzone High-Dose 0.5 ML Intramuscular Suspension Prefilled Syringe Lot #: [id number] on: 18-Jul-2016 Family History Name Dates Details [...] >60 ml/min Range: >60 EST GFR, NON-AFR [place] >60 ml/min Range: >60 Comments: EST GFR [...] 11:03 Urinalysis, reflex to Micro and Culture ([facility]) 3451 Comments: Testing performed by [facility], [address], [place] [address] Testing performed by [facility], [address], [place] [address] pH 6.0 Range: 5.0-7.5 SP GRAVITY 1.015 [...] Slight OVAL Present 10-Nov-2016 09:26 URINE CULTURE [id number] Comments: PeerSpace performed at: [facility], [address] [place] [address], [phone], Dive Supervisor: Cameron Beaulieu D.O., MPHQuest Collection Date/Time: [id number] Results Received Date/Time: [id number] Reported Date/Time: FASTING:NOQuest performed at: [facility], [address] [place] [address], [phone], Dive Supervisor: Cameron Beaulieu D.O., MPHQuest Collection Date/Time: [id number] Results Received Date/Time: [id number] Reported Date/Time: FASTING:NO CULTURE, URINE, ROUTINE SEE NOTE (Abnormal) Comments: CULTURE, URINE, ROUTINE MICRO NUMBER: [id number] TEST STATUS: FINAL SPECIMEN SOURCE : URINE [...] M.D. On 15-Nov-2016 11:00 Interventions Provided Labs/Procedures/Imaging* CBC w/ Auto Diff 7150; To be Done: 14 Nov 2016 Instructions Name Dates Details Instructions not [...] Diagnosis: Problem not documented On 14:45 Appointment; Grfifin Winn M.D. Encounter Diagnosis: Problem not documented [...]
--- OUTSIDE RECORDS SUMMARY | 2016-12-11 10:00 | XMS REPORT | Summary of Care ---
Author Author Griffin Winn M.D. 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 Griffin Winn M.D. * Start Active [place] Thyroid 60 MG Oral Tablet TAKE TWO [...] twice daily * Quantity: 60 Refills: 6 [place] LakeDon[place] leon M.D. * Start 11-Jan-2016 Active Furosemide 20 MG Oral Tablet Take 1-2 tabs po q day as needed * Quantity: 60 Refills: 3 [place] leon M.D. * Start 11-Jan-2016 Active Calcium Carbonate 500 (200 Ca) MG Oral Wafer Take 1 daily * Refills: 0 Donis Roy M.D. * Start 11-Jan-2016 Active Vitamin B Complex Oral Tablet TAKE 1 TABLET DAILY. * Refills: 0 [place] M.D., Donis * Start 11-Jan-2016 Active Vitamin C 500 MG Oral Tablet Chewable CHEW AND SWALLOW 1 TABLET DAILY. * Refills: 0 Manuela M.D., Donis * Start 11-Jan-2016 Active Saw [place] Oral Capsule TAKE 1 CAPSULE DAILY. * [...] chamber, chinstrap * Quantity: 1 Refills: 0 Ronsick M.D., Griffin O * Start 03-May-2016 Active Allergies and Adverse Reactions Name Dates [...] smoker Vital Signs Date Test Result Details 03-May-2016 13:02 BP Systolic 118 mm[Hg] Status: Comments: Location: ; Position: BP Diastolic 64 mm[Hg] Status: Comments: Location: ; Position: Heart Rate 88 /min Status: Comments: Location: ; Height 66 in Status: Weight 136 lb Status: Physical Findings 97 Status: Comments: O2 Saturation Body Mass Index Calculated 21.95 kg/m2 Status: Body Surface Area Calculated 1.7 m2 Status: 12-Apr-2016 10:49 BP Systolic 124 mm[Hg] Status: Comments: Location: ; Position: BP Diastolic 80 mm[Hg] Status: Comments: Location: ; Position: Temperature 98.1 f Status: Heart Rate 83 /min Status: Comments: Location: ; Weight 136 lb Status: Physical Findings 99 Status: Comments: O2 Saturation Body Mass Index Calculated 21.95 kg/m2 Status: Body Surface Area Calculated 1.7 m2 Status: Results Date Description Value Details 04-Apr-2016 14:50 CBC w/ Auto Diff 7150 Comments: Items were attached to this order: CBCManual differential indicated. WBC 5.5 K/uL Range: 4.5-11.0 RBC 3.41 mil/uL (Below low threshold) Range: 4.20-5.40 HGB 10.7 g/dL (Below low threshold) Range: 14.0-18.0 HCT 31.4 % (Below low threshold) Range: 42.0-53.0 MCV 92.0 fL Range: 80.0-99.0 MCH 31.3 pg Range: 27.3-32.5 MCHC 34.0 % Range: 32.0-36.0 RDW 21.0 % (Above high threshold) Range: 11.6-14.8 PLATELETS 42 K/uL (Below low threshold) Range: 150-400 MPV 8.5 fL Range: 6.0-11.0 15:06 Manual Differential 7400 Comments: Items were attached to this order: CBC SEGS 82 % (Above high threshold) Range: 37-80 BANDS 2 % Range: 0-7 LYMPH 9 % (Below low threshold) Range: 13-50 MONO 5 % Range: 0-12 EOSIN 1 % Range: 0-7 BASO 0 % Range: 0-3 OFE LYMPH 1 % (Above high threshold) Range: 0-0 META 0 % Range: 0-0 MYELO 0 % Range: 0-0 PRO 0 % Range: 0-0 BLAST 0 % Range: 0-0 NUC RBC 0 /100 WBC Range: 0-0 SMUDGE 0 /100 WBC PLATELET Decreased (Abnormal) Range: Adequate ANISO Marked MACROCYT Slight OVAL Present 11-Apr-2016 15:33 CBC w/ Manual Diff 7225 WBC 6.9 K/uL Range: 4.5-11.0 RBC 3.44 mil/uL (Below low threshold) Range: 4.20-5.40 HGB 10.7 g/dL (Below low threshold) Range: 14.0-18.0 HCT 31.7 % (Below low threshold) Range: 42.0-53.0 MCV 92.1 fL Range: 80.0-99.0 MCH 31.1 pg Range: 27.3-32.5 MCHC 33.8 % Range: 32.0-36.0 RDW 20.1 % (Above high threshold) Range: 11.6-14.8 PLATELETS 43 K/uL (Below low threshold) Range: 150-400 MPV 8.7 fL Range: 6.0-11.0 NEUTRO 5.6 K/uL Range: 2.0-6.9 SEGS 72 % Range: 37-80 BANDS 6 % Range: 0-7 LYMPH 13 % Range: 13-50 MONO 4 % Range: 0-12 EOSIN 3 % Range: 0-7 BASO 1 % Range: 0-3 OFE LYMPH 0 % Range: 0-0 META 0 % Range: 0-0 MYELO 1 % (Above high threshold) Range: 0-0 PRO 0 % Range: 0-0 BLAST 0 % Range: 0-0 NUC RBC 0 /100 WBC Range: 0-0 SMUDGE 0 /100 WBC PLATELET Decreased (Abnormal) Range: Adequate ANISO Mod MACROCYT Slight 19-Apr-2016 14:21 CBC w/ Manual Diff 7225 Comments: ORDER IN WEEKLY FOLDER; ALSO FAX TO ADDITIONAL NUMBER - CC'D WBC 5.9 K/uL Range: 4.5-11.0 RBC 3.40 mil/uL (Below low threshold) Range: 4.20-5.40 HGB 10.5 g/dL (Below low threshold) Range: 14.0-18.0 HCT 30.8 % (Below low threshold) Range: 42.0-53.0 MCV 90.6 fL Range: 80.0-99.0 MCH 31.0 pg Range: 27.3-32.5 MCHC 34.2 % Range: 32.0-36.0 RDW 20.2 % (Above high threshold) Range: 11.6-14.8 PLATELETS 44 K/uL (Below low threshold) Range: 150-400 MPV 8.0 fL Range: 6.0-11.0 NEUTRO 4.7 K/uL Range: 2.0-6.9 SEGS 73 % Range: 37-80 BANDS 2 % Range: 0-7 LYMPH 15 % Range: 13-50 MONO 9 % Range: 0-12 EOSIN 0 % Range: 0-7 BASO 1 % Range: 0-3 OFE LYMPH 0 % Range: 0-0 META 0 % Range: 0-0 MYELO 0 % Range: 0-0 PRO 0 % Range: 0-0 BLAST 0 % Range: 0-0 NUC RBC 0 /100 WBC Range: 0-0 SMUDGE 0 /100 WBC PLATELET Decreased (Abnormal) Range: Adequate ANISO Mod MACROCYT Slight POLYCHRO Slight 25-Apr-2016 14:28 CBC w/ Manual Diff 7225 Comments: ORDER IN WEEKLY FOLDER; ALSO FAX TO ADDITIONAL NUMBER - CC'D WBC 5.6 K/uL Range: 4.5-11.0 RBC 3.30 mil/uL (Below low threshold) Range: 4.20-5.40 HGB 10.4 g/dL (Below low threshold) Range: 14.0-18.0 HCT 29.6 % (Below low threshold) Range: 42.0-53.0 MCV 89.7 fL Range: 80.0-99.0 MCH 31.4 pg Range: 27.3-32.5 MCHC 35.0 % Range: 32.0-36.0 RDW 20.3 % (Above high threshold) Range: 11.6-14.8 PLATELETS 36 K/uL (Below low threshold) Range: 150-400 MPV 7.5 fL Range: 6.0-11.0 NEUTRO 4.6 K/uL Range: 2.0-6.9 SEGS 85 % (Above high threshold) Range: 37-80 BANDS 0 % Range: 0-7 LYMPH 6 % (Below low threshold) Range: 13-50 MONO [...] WBC PLATELET Decreased (Abnormal) Range: Adequate ANISO Slight MACROCYT Slight HYPOCHRO Slight 02-May-2016 15:19 CBC w/ Manual Diff 7225 Comments: ORDER IN WEEKLY FOLDER; ALSO FAX TO ADDITIONAL NUMBER (CC'D WBC 4.3 K/uL (Below low threshold) Range: 4.5-11.0 RBC 2.97 mil/uL (Below low threshold) Range: 4.20-5.40 HGB 9.2 g/dL (Below low threshold) Range: 14.0-18.0 HCT 26.9 % (Below low threshold) Range: 42.0-53.0 MCV 90.7 fL Range: 80.0-99.0 MCH 31.1 pg Range: 27.3-32.5 MCHC 34.3 % Range: 32.0-36.0 RDW 20.0 % (Above high threshold) Range: 11.6-14.8 PLATELETS 40 K/uL (Below low threshold) Range: 150-400 MPV 8.1 fL Range: 6.0-11.0 NEUTRO 3.4 K/uL Range: 2.0-6.9 SEGS 77 % Range: 37-80 BANDS 2 % Range: 0-7 LYMPH 14 % Range: 13-50 MONO 5 % Range: 0-12 EOSIN 2 % Range: 0-7 BASO 0 % Range: 0-3 OFE LYMPH 0 % Range: 0-0 META 0 % Range: 0-0 MYELO 0 % Range: 0-0 PRO 0 % Range: 0-0 BLAST 0 % Range: 0-0 NUC RBC 0 /100 WBC Range: 0-0 SMUDGE 0 /100 WBC PLATELET Decreased (Abnormal) Range: Adequate ANISO Mod MACROCYT Slight HYPOCHRO Slight Plan of Care Name Dates Details Planned Observations Planned Goals not documented Planned Encounters Appointment; Provider: Griffin Winn M.D. On 12-Jul-2016 13:30 Interventions Provided Medication Changes* Supplies - Start [...]
--- OUTSIDE RECORDS SUMMARY | 2016-12-11 10:00 | XMS REPORT | Summary of Care ---
Author Author Donis Roy M.D. Organization Unknown Address [address] [place], [place] [phone] Phone Unavailable Care Team Providers Care Lsat Instructor Name Role Phone Donis Roy M.D. Unavailable [...] 0 Donis Roy M.D.* Started 11-Jan-2016 ActiveSaw [place] Oral Capsule TAKE 1 CAPSULE DAILY. * [...] History of Hip Repair History of Colonoscopy CBC w/ Auto Diff 7150 Ordered:11-Jan-2016 Comprehensive [...] m2 Status: Results Date Description Value Details 11-Jan-2016 14:11 THYROID STIM. HORMONE 3602 THYROID STIM. HORMONE 0.270 uIU/mL (Below low threshold) Range: 0.550- 4.780 Comments: PLEASE NOTE: Patients undergoing fuorescein dye angiography within the last 72 hours can produce falsely depressed TSH values with current methodology.No established reference ranges for infants and children <2 years of age----- 14:11 FREE T4 3604 FREE T4 0.87 ng/dL (Better) Range: 0.80-1.67 08:39 Triiodothyronine,Free,Serum ( T3) [id number] Comments: Testing performed at: [DA] [facility], [address] [place] [address], [place], [address], , Psych Assistant: RAND Ashley MD TRIIODOTHYRONINE,FREE,SERUM 5.3 pg/mL (Above high threshold) Range: 2.0- 4.4 Plan of Care Planned Observations* Name Dates [...]
--- OUTSIDE RECORDS SUMMARY | 2016-12-11 10:00 | XMS REPORT | Summary of Care ---
Author Author Manuela Morrison, Donis Organization Unknown Address Unknown Phone Unavailable Care Team Providers Care Expansion Joint Finisher Name Role Phone Yudi Yarbrough Unavailable Unavailable [...] DAILY. Griffin Winn M.D. * Start Active [place] Thyroid 60 MG Oral Tablet TAKE TWO AND ONE-HALF TABLETS BY MOUTH DAILY * Quantity: 180 Refills: 11 [place] M.D., Donis * Start 23-Mar-2016 Active Pravastatin [...] TABLET DAILY. * Quantity: 30 Refills: 6 [place] M.D., Donis * Start 11-Jan-2016 Active Calcium Carbonate 500 (200 Ca) MG Oral Wafer Take 1 daily * Refills: 0 [place] M.D., Donis * Start 11-Jan-2016 Active Vitamin B Complex Oral Tablet TAKE 1 TABLET DAILY. * Refills: 0 [place] M.D., Donis * Start 11-Jan-2016 Active Vitamin C 500 MG Oral Tablet Chewable CHEW AND SWALLOW 1 TABLET DAILY. * Refills: 0 [place] M.D., Donis * Start 11-Jan-2016 Active Saw [place] Oral Capsule TAKE 1 CAPSULE DAILY. * Refills: 0 [place] M.D., Donis * Start 11-Jan-2016 Active Supplies [...] >60 ml/min Range: >60 EST GFR, NON-AFR CITIZEN OF [place] 56 ml/min (Below low threshold) Range: >60 Comments: EST GFR is reported in ml/min per 1.73 m2 of body surface area. For -[place], please multiple result by 1.2.----- GLUCOSE 97 [...] ng/dL Range: 0.80-1.67 13:11 Triiodothyronine,Free,Serum ( T3) [id number] Comments: Testing performed at: [DA] [facility], [address] [place] [address], [place], [address], , Local [place] Truck Driver: RAND Ashley MD TRIIODOTHYRONINE,FREE,SERUM 3.9 pg/mL Range: [...] Observations CBC w/ Manual Diff 7225 On 17-Mar-2016 Intent CBC w/ Manual Diff 7225 On 04-Apr-2016 Intent Planned Goals not documented Instructions Name Dates [...]
--- OUTSIDE RECORDS SUMMARY | 2016-12-11 10:00 | XMS REPORT | Summary of Care ---
Author Author Donis Roy M.D. Organization Unknown Address [address] [place], [place] [phone] Phone Unavailable Care Team Providers Care Pool Table Mechanic Name Role Phone Donis Roy M.D. Unavailable [...] Status: Active Atherosclerosis (440.9, I70.90) Status: Active Atrial fibrillation (427.31, I48.91) Status: Active Chronic kidney disease (585.9, N18.9) Status: Active Thrombocytopenia (287.5, D69.6) Status: Active Insomnia (780.52, G47.00) Status: Active Screening PSA (prostate specific antigen) (V76.44, Z12.5) Status: Active Medications Name Dates Details Metoprolol Tartrate 50 MG Oral Tablet TAKE 1/2 TABLET TWICE DAILY. Griffin Winn M.D.* Started [place] Thyroid 60 MG Oral Tablet Take [...] 0 Donis Roy M.D.* Started 11-Jan-2016 ActiveSaw [place] Oral Capsule TAKE 1 CAPSULE DAILY. * [...] of Hip Repair History of Hernia Repair THYROID STIM. HORMONE 3602 Ordered:11-Jan-2016 FREE T4 3604 Ordered:11-Jan-2016 Triiodothyronine,Free,Serum ( T3) [id number] Ordered:11-Jan-2016 CBC w/ Auto Diff 7150 Ordered:11-Jan-2016 [...] * Instructions not documented Encounters Appointment; Donis Ryo Encounter Diagnosis: Problem not documented On 11-Jan-2016 10:45 Appointment; Josep Dao Encounter Diagnosis: Problem not documented On 15-Nov-2015 14:45 Appointment; Griffin Winn Encounter Diagnosis: Problem not documented On 15-Apr-2015 10:30 Appointment; Griffin Winn Encounter Diagnosis: Problem not documented On 13:00
[2016-12-11] MEDS ORDERED: NORMAL SALINE 1,000 ML IV ONE (10:01)
--- OUTSIDE RECORDS SUMMARY | 2016-12-11 10:01 | XMS REPORT | Referral Summary ---
Author Author [facility] [place] Organization [facility] Address Unknown Phone Unavailable Care Team Providers Care Silver Buffer Name Role Phone Joe Roy Primary Care Physician [phone] Encounter [facility] [id number] Date(s): 05/19/15 - 05/19/15 [facility] [place] Cardiology [address] [place] [address] JAY Molina [address] Discharge Diagnosis: Pulmonary hypertension Discharge Diagnosis: [...] DAILY, # 100 tabs, 3 Refill(s), eRx: [facility], TAKE ONE-HALF TABLET BY MOUTH TWICE DAILY Start Date: 03/06/14 Status: Ordered multivitamin 1 tabs, Oral, Daily Start Date: 07/01/14 Status: Ordered pravastatin 10 mg oral tablet See Instructions, TAKE ONE TABLET BY MOUTH ONCE DAILY, # 90 tabs, 1 Refill(s), eRx: [facility], TAKE ONE TABLET BY [...] R acetabular fx1 10/08/08 S/P colonoscopy2 08/16/07 [facility] - Acc 10/07/08 rec 2WNL; repeat [...]
--- OUTSIDE RECORDS SUMMARY | 2016-12-11 10:01 | XMS REPORT | Referral Summary ---
Author Author [facility] Organization [facility] Address Unknown Phone Unavailable Care Team Providers Care Voice Professor Name Role Phone Manuela Joe Primary Care Physician [phone] Encounter Date(s): 08/16/15 - 08/16/15 [facility] [address] [place], [place] [address] Discharge Diagnosis: Malignant tumor, spindle cell type Discharge Disposition: 01-Home or Self Care Attending Physician: Bayron Basilio MD Admitting Physician: Bayron Basilio MD Referring Physician: Ariel Vizcarra MD Vital Signs Most recent to 1 oldest [Reference Range]: Blood Pressure 130/74 mmHg [90-140/60-90 mmHg] (08/16/15 2:59 PM) Problem List Condition Effective Dates Status [...] DAILY, # 100 tabs, 3 Refill(s), [facility]Rx: [facility], TAKE ONE-HALF TABLET BY MOUTH TWICE DAILY Start Date: 07/07/15 Status: Ordered multivitamin 1 tabs, Oral, Daily Start Date: 07/01/14 Status: Ordered pravastatin 10 mg oral tablet See Instructions, TAKE ONE TABLET BY MOUTH ONCE DAILY, # 90 tabs, 1 Refill(s), [facility]Rx: [facility], TAKE ONE TABLET BY MOUTH [...] acetabular fx1 10/08/08 S/P colonoscopy2 08/16/07 [facility] - Acc 10/07/08 rec 2WNL; repeat 10 years Social History Social History Type Response Smoking Status Never smoker Assessment and Plan Extracted from: Title: Ambulatory Patient Education Author: Bayron Basilio MD Date: 08/16/15 Family Medicine Excision of Skin Lesions Excision of a skin lesion refers to the removal of a section of skin by making small cuts (incisions) in the skin. This is typically done to remove a cancerous growth (basal cell carcinoma, squamous cell carcinoma, or melanoma) or a noncancerous growth (cyst). It may be done to treat or prevent cancer or infection. It may also be done to improve cosmetic appearance (removal of mole, skin tag). LET YOUR CAREGIVER KNOW ABOUT: Allergies to food or medicine. Medicines taken, including vitamins, herbs, eyedrops, legl-nem-xbuvsjr medicines, and creams. Use of steroids (by mouth or creams). Previous problems with anesthetics or numbing medicines. History of bleeding problems or blood clots. History of any prostheses. Previous surgery. Other health problems, including diabetes and kidney problems. Possibility of , if this applies. RISKS AND COMPLICATIONS Many complications can be managed. With appropriate treatment and rehabilitation , the following complications are very uncommon: Bleeding. Infection. Scarring. Recurrence of cyst or cancer. Changes in skin sensation or appearance (discoloration, swelling). Reaction to anesthesia. Allergic reaction to surgical materials or ointments. Damage to nerves, blood vessels, muscles, or other structures. Continued pain. BEFORE THE PROCEDURE It is important to follow your caregiver's instructions prior to your procedure to avoid complications. Steps before your procedure may include: Physical exam, blood tests, other procedures, such as removing a small sample for examination under a microscope (biopsy). Your caregiver may review the procedure, the anesthesia being used, and what to expect after the procedure with you. You may be asked to: Stop taking certain medicines, such as blood thinners (including aspirin, clopidogrel, ibuprofen), for several days prior to your procedure. Take certain medicines. Stop smoking. It is a good idea to arrange for a ride home after surgery and to have someone to help you with activities during recovery. PROCEDURE There are several excision techniques. The type of excision or surgical technique used will depend on your condition, the location of the lesion, and your overall health. After the lesion is sterilized and a local anesthetic is applied, the following may be performed: Complete surgical excision The area to be removed is marked with a pen. Using a small scalpel and scissors , the surgeon gently cuts around and under the lesion until it is completely removed. The lesion is placed in a special fluid and sent to the lab for examination. If necessary, bleeding will be controlled with a device that delivers heat. The edges of the wound are stitched together and a dressing is applied. This procedure may be performed to treat a cancerous growth or noncancerous cyst or lesion. Surgeons commonly perform an elliptical excision, to minimize scarring. Excision of a cyst The surgeon makes an incision on the cyst. The entire cyst is removed through the incision. The wound may be closed with a suture (stitch). Shave excision During shave excision, the surgeon uses a small blade or loop instrument to shave off the lesion. This may be done to remove a mole or skin tag. The wound is usually left to heal on its own without stitches. Punch excision During punch excision, the surgeon uses a small, round tool (like a cookie cutter) to cut a kluti kaah shape out of the skin. The outer edges of the skin are stitched together. This may be done to remove a mole or scar or to perform a biopsy of the lesion. Mohs micrographic surgery During Mohs micrographic surgery, layers of the lesion are removed with a scalpel or loop instrument and immediately examined under a microscope until all of the abnormal or cancerous tissue is removed. This procedure is minimally invasive and ensures the best cosmetic outcome, with removal of as little normal tissue as possible. Mohs is usually done to treat skin cancer, such as basal cell carcinoma or squamous cell carcinoma, particularly on the face and ears. Antibiotic ointment is applied to the surgical area after each of the procedures listed above, as necessary. AFTER THE PROCEDURE How well you heal depends on many factors. Most patients heal quite well with proper techniques and self-care. Scarring will lessen over time. HOME CARE INSTRUCTIONS Take medicines for pain as directed. Keep the incision area clean, dry, and protected for at least 48 hours. Change dressings as directed. For bleeding, apply gentle but firm pressure to the wound using a folded towel for 20 minutes. Call your caregiver if bleeding does not stop. Avoid high-impact exercise and activities until the stitches are removed or the area heals. Follow your caregiver's instructions to minimize scarring. Avoid sun exposure until the area has healed. Scarring should lessen over time. Follow up with your caregiver as directed. Removal of stitches within 4 to 14 days may be necessary. Finding out the results of your test Not all test results are available during your visit. If your test results are not back during the visit, make an appointment with your caregiver to find out the results. Do not assume everything is normal if you have not heard from your caregiver or the medical facility. It is important for you to follow up on all of your test results. SEEK MEDICAL CARE IF: You or your child has an oral temperature above 102 F (38.9 C). You develop signs of infection (chills, feeling unwell). You notice bleeding, pain, discharge, redness, or swelling at the incision site. You notice skin irregularities or changes in sensation. MAKE SURE YOU: Understand these instructions. Will watch your condition. Will get help right away if you are not doing well or get worse. FOR MORE INFORMATION [place] [employer]: www.aafp.org [place] [employer]: www.aad.org Document Released: 10/24/2010 Document Revised: 10/21/2012 Document Reviewed: Exit[employer] Patient Information 2015 [employer]. This information is not intended to replace advice given to you by your health care provider. Make sure you discuss any questions you have with your health care provider. No follow up information was provided. Extracted from: Title: Office Visit Note Author: Bayron Basilio MD Date: 08/16/15 Assessment/Plan 1.Malignant tumor, spindle cell type 85-year-old male with multiple medical problemsand a recent diagnosis ofleft earmalignantdermal spindle cell neoplasm. Likely diagnosis is atypical fibroxanthomawhichtypically has an indolent course and is treated with surgical excision alone. However undifferentiated pleomorphic sarcoma cannot be ruled out. Plan will be formal excisional biopsyof theareato determineactual pathologic diagnosis. Further treatmentwill be based on this pathology. This we done under local anesthesia in clinic. Preferably the patient will be able togo off of his eliquis. Patient has an appointment with cardiology tomorrowfor stress tests andfurther evaluation of hiscardiacstatus. Ordered: Office Visit Level 3 New [id number]
--- OUTSIDE RECORDS SUMMARY | 2016-12-11 10:01 | XMS REPORT | Summary of Care ---
Author Author Manuela Morrison, Donis Organization Unknown Address Unknown Phone Unavailable Care Team Providers Care Oxygen Equipment Preparer Name Role Phone Yudi Yarbrough Unavailable Hannah [...] TWICE DAILY. Quantity: 60 * Start Active [place] Thyroid 60 MG Oral Tablet TAKE TWO [...] Wafer Take 2 daily * Refills: 0 Cameron M.D., Donis * Start 11-Jan-2016 Active Supplies [...] MOUTH DAILY * Quantity: 30 Refills: 11 Cameron M.D., Donis * Start 18-Aug-2016 Active Imodium A-D 2 MG Oral Tablet TAKE 2 TABLETS INITIALLY, FOLLOWED BY 1 TABLET AFTER EACH LOOSE BOWEL MOVEMENT. DO NOT EXCEED 8 TABLETS/DAY. * Refills: 0 Manuela M.D., Donis * Start 18-Aug-2016 Active Acetaminophen 325 MG Oral Tablet Take 2 tabs po every 4 hours PRN * Refills: 0 Cameron M.D., Donis * Start 18-Aug-2016 Active Allergies [...] 18-Sep-2016 CBC w/ Auto Diff 7150 Ordered: 25-Sep-2016 Immunization Name Dates Details Fluzone High-Dose SUSP on: 6-Dec-2016 Fluzone High-Dose 0.5 ML Intramuscular Suspension Prefilled Syringe Lot #: [id number] on: 18-Jul-2016 Family History Name Dates Details [...] Slight HYPOCHRO Mod POLYCHRO Mod OVAL Present Plan of Care Name Dates Details Planned Observations Planned Goals not documented Planned Encounters Appointment; Provider: Donis Roy M.D. On 07-Nov-2016 10:00 Appointment; Provider: Michelet Oropeza M.D. On 28-Sep-2016 11:30 Interventions Provided Labs/Procedures/Imaging* CBC w/ Auto Diff 7150; To be Done: 25 Sep 2016 Instructions Name Dates Details Instructions [...]
--- OUTSIDE RECORDS SUMMARY | 2016-12-11 10:01 | XMS REPORT | Summary of Care ---
Author Author Griffin Winn M.D. Organization Unknown Address [address] [place] [phone] Phone Unavailable Care Team Providers Care Teacher Physically Impaired Name Role Phone Pepe Esparza PP Unavailable Unavailable Unavailable Functional [...] not documented Status: Procedures Procedure Dates Details ECG/ EKG [place] Comprehensive Metabolic Panel 1212 Ordered: THYROID STIM. HORMONE 3602 Ordered: XRay CHEST-PA & LAT Ordered: Immunization Name Dates Details Immunizations not documented [...] 150-400 MPV 9.0 fL (Better) Range: 6.0-11.0 Plan of Care Planned Observations* Name Dates Details Planned Goals not documented Goal Planned Encounters* Appointment; Provider: Griffin Winn On 13:00 Instructions * Instructions not documented Encounters No Encounter data documented Encounter Diagnosis: Problem not documented On
--- OUTSIDE RECORDS SUMMARY | 2016-12-11 10:01 | XMS REPORT | Summary of Care ---
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 Quantity: 60 * Start Active [place] Thyroid 60 MG Oral Tablet TAKE TWO [...] needed * Quantity: 60 Refills: 3 Manuela Rucker.D.Donis * Start 11-Jan-2016 Active Calcium Carbonate 500 (200 Ca) MG Oral Wafer Take 2 daily * Refills: 0 Manuela M.D., Donis * [...] MOUTH DAILY * Quantity: 90 Refills: 3 [place] M.D.Donis * Start 18-Aug-2016 Active Imodium A-D 2 MG Oral Tablet TAKE 2 TABLETS INITIALLY, FOLLOWED BY 1 TABLET AFTER EACH LOOSE BOWEL MOVEMENT. DO NOT EXCEED 8 TABLETS/DAY. * Refills: 0 [place] M.D., Donis * Start 18-Aug-2016 Active Acetaminophen 325 MG Oral Tablet Take 2 tabs po every 4 hours PRN * Refills: 0 [place] M.D.Dnois * Start 18-Aug-2016 Active Allergies and Adverse [...] ML Intramuscular Suspension Prefilled Syringe Lot #: [id number] on: 18-Jul-2016 Family History Name Dates Details [...] smoker Vital Signs Date Test Result Details 25-Aug-2016 09:33 BP Systolic 128 mm[Hg] Status: Comments: Location: LUE; Position: Sitting BP Diastolic 84 mm[Hg] Status: Comments: Location: LUE; Position: Sitting Heart Rate 74 /min Status: Comments: Location: [...] low threshold) Range: >60 EST GFR, NON-AFR IRISH 48 ml/min (Below low threshold) Range: >60 [...] Encounters Appointment; Provider: Tracy Alba A.P.R.N. On 10-Oct-2016 13:00 Appointment; Provider: Donis Roy M.D. On 05-Sep-2016 10:00 Interventions Provided Medication Changes* Supplies - Renew Instructions Name Dates Details Instructions not documented [...]
--- OUTSIDE RECORDS SUMMARY | 2016-12-11 10:01 | XMS REPORT | Referral Summary ---
Author Organization Unknown Address Unknown Phone Unavailable Care Team Providers Care Repeat Chief Name Role Phone Margarette Esparza Primary Care Physician [phone] Encounter [facility] [id number] Date(s): 10/30/14 - 10/30/14 [facility] [address], [place] [address] Discharge Diagnosis: Squamous cell carcinoma Discharge Diagnosis: NEOPLASM OF UNCERTAIN BEHAVIOR, SITE UNSPECIFIED Discharge Diagnosis: Actinic keratoses Discharge Diagnosis: Seborrheic keratosis Discharge Diagnosis: Senile ecchymosis Discharge Diagnosis: History of basal cell carcinoma Discharge Diagnosis: Basal cell carcinoma Discharge Disposition: Home or Self Care Attending Physician: Ariel Vizcarra [...] 100 tabs, 3 Refill(s), eRx: [facility], TAKE ONE-HALF TABLET BY MOUTH TWICE DAILY Special Instructions: TAKE ONE-HALF TABLET BY MOUTH TWICE DAILY Start Date: 03/06/14 Status: Ordered multivitamin 1 tabs, Oral, Daily Start Date: 07/01/14 Status: Ordered pravastatin 10 mg oral tablet 1 tabs, Oral, Daily, # 90 tabs, 3 Refill(s), Pharmacy: [facility], 1 tabs Oral Daily Start Date: [...] Diagnosis Body Site Destruction (eg, laser surgery, 10/30/14 electrosurgery, cryosurgery, chemosurgery, surgical curettement), premalignant lesions (eg, actinic keratoses), [address] R acetabular fx1 10/08/08 S/P colonoscopy2 08/16/07 [facility] - Acc 10/07/08 rec 2WNL; repeat 10 years Social History Social History Type Response Smoking Status Never smoker Assessment and Plan Extracted from: Title: Office Visit Note Author: Ariel Vizcarra MD Date: 10/30/14 Assessment/Plan Actinic keratoses Basal cell carcinoma History of basal cell carcinoma NEOPLASM OF UNCERTAIN BEHAVIOR, SITE UNSPECIFIED Seborrheic keratosis Senile ecchymosis Squamous cell carcinoma
--- OUTSIDE RECORDS SUMMARY | 2016-12-11 10:01 | XMS REPORT | Summary of Care ---
Author Author Manuela Morrison, Donis Organization Unknown Address Unknown Phone Unavailable Care Team Providers Care Sprinkling System Irrigator Name Role Phone Yudi Yarbrough Unavailable Hannah [...] TWICE DAILY. Quantity: 60 * Start Active [place] Thyroid 60 MG Oral Tablet TAKE TWO [...] Wafer Take 2 daily * Refills: 0 [place] M.D., Donis * Start 11-Jan-2016 Active Supplies [...] MOUTH DAILY * Quantity: 30 Refills: 11 [place] M.D., Donis * Start 18-Aug-2016 Active Imodium A-D 2 MG Oral Tablet TAKE 2 TABLETS INITIALLY, FOLLOWED BY 1 TABLET AFTER EACH LOOSE BOWEL MOVEMENT. DO NOT EXCEED 8 TABLETS/DAY. * Refills: 0 [place] M.D., Donis * Start 18-Aug-2016 Active Acetaminophen 325 MG Oral Tablet Take 2 tabs po every 4 hours PRN * Refills: 0 [place] M.D.Donis * Start 18-Aug-2016 Active Allergies and [...] CBC w/ Auto Diff 7150 Ordered: 03-Oct-2016 CBC w/ Auto Diff 7150 Ordered: 03-Oct-2016 Immunization Name Dates Details Fluzone High-Dose SUSP on: 18-Jul-2016 Fluzone High-Dose 0.5 ML Intramuscular Suspension Prefilled Syringe Lot #: [id number] on: 18-Jul-2016 Family History Name Dates Details [...] Observations CBC w/ Auto Diff 7150 On 10-Oct-2016 Intent Planned Goals not documented Planned Encounters Appointment; Provider: Michelet Oropeza M.D. On 15-Nov-2016 11:00 Appointment; Provider: Donis Roy M.D. On 07-Nov-2016 10:00 Interventions Provided Labs/Procedures/Imaging* CBC w/ Auto Diff 7150; To be Done: 03 Oct 2016 Instructions Name Dates Details Instructions [...]
--- OUTSIDE RECORDS SUMMARY | 2016-12-11 10:02 | XMS REPORT ---
Author Author Eden Pyle Organization [employer] Address Unknown Phone Unavailable Care Team Providers Care Scratch Polisher Name Role Phone Eden Pyle CP Unavailable [...]
--- OUTSIDE RECORDS SUMMARY | 2016-12-11 10:02 | XMS REPORT | Summary of Care ---
Author Author Manuela Morrison, Donis Organization Unknown Address Unknown Phone Unavailable Care Team Providers Care Supervisor Dumping Name Role Phone Yudi Yarbrough Unavailable Unavailable [...] Griffin Winn M.D. * Start Active [place] Thyroid 60 MG Oral Tablet TAKE TWO AND ONE-HALF TABLETS BY MOUTH DAILY * Quantity: 180 Refills: 11 [place] M.D., Donis * Start 23-Mar-2016 Active Pravastatin [...] TABLET DAILY. * Quantity: 30 Refills: 6 [place] M.D., Donis * Start 11-Jan-2016 Active Calcium Carbonate 500 (200 Ca) MG Oral Wafer Take 1 daily * Refills: 0 [place] M.D., Donis * Start 11-Jan-2016 Active Vitamin B Complex Oral Tablet TAKE 1 TABLET DAILY. * Refills: 0 [place] M.D., Donis * Start 11-Jan-2016 Active Vitamin C 500 MG Oral Tablet Chewable CHEW AND SWALLOW 1 TABLET DAILY. * Refills: 0 [place] M.D., Donis * Start 11-Jan-2016 Active Saw [place] Oral Capsule TAKE 1 CAPSULE DAILY. * Refills: 0 [place] M.D., Donis * Start 11-Jan-2016 Active Supplies [...] >60 ml/min Range: >60 EST GFR, NON-AFR [place] 56 ml/min (Below low threshold) Range: >60 Comments: EST GFR is reported in ml/min per 1.73 m2 of body surface area. For -Gibralt[place], please multiple result by 1.2.----- GLUCOSE 97 [...] ng/dL Range: 0.80-1.67 13:11 Triiodothyronine,Free,Serum ( T3) [id number] Comments: [facility] performed at: [facility], [address] [place] [address], [place], [address], , Frame Runner: RAND Ashley MD TRIIODOTHYRONINE,FREE,SERUM 3.9 pg/mL Range: [...] WBC PLATELET Adequate Range: Adequate ANISO Mod 04-Apr-2016 14:50 CBC w/ Auto Diff 7150 [...] Adequate ANISO Marked MACROCYT Slight OVAL Present Plan of Care Name [...] Problem not documented On 15-Nov-2015 14:45 Appointment; Grififn Winn M.D. Encounter Diagnosis: Problem not documented On 15-Apr-2015 10:30 Appointment; Ronsick, Griffin, M.D. Encounter Diagnosis: Problem not documented On 13:00
--- OUTSIDE RECORDS SUMMARY | 2016-12-11 10:02 | XMS REPORT | Summary of Care ---
Author Author Manuela Morrison, Donis Organization Unknown Address Unknown Phone Unavailable Care Team Providers Care Welfare Specialist Name Role Phone Yudi Yarbrough Unavailable Hannah [...] TWICE DAILY. Quantity: 60 * Start Active [place] Thyroid 60 MG Oral Tablet TAKE TWO [...] Wafer Take 2 daily * Refills: 0 [place] M.D., Donis * Start 11-Jan-2016 Active Supplies [...] MOUTH DAILY * Quantity: 30 Refills: 11 [place] M.D., Donis * Start 18-Aug-2016 Active Imodium A-D 2 MG Oral Tablet TAKE 2 TABLETS INITIALLY, FOLLOWED BY 1 TABLET AFTER EACH LOOSE BOWEL MOVEMENT. DO NOT EXCEED 8 TABLETS/DAY. * Refills: 0 Manuela M.D., Donis * Start 18-Aug-2016 Active Acetaminophen 325 MG Oral Tablet Take 2 tabs po every 4 hours PRN * Refills: 0 [place] M.D., Donis * Start 18-Aug-2016 Active Allergies [...] ML Intramuscular Suspension Prefilled Syringe Lot #: [id number] on: 18-Jul-2016 Family History Name Dates Details [...]
--- OUTSIDE RECORDS SUMMARY | 2016-12-11 10:02 | XMS REPORT | Referral Summary ---
Author Author [facility] Organization [facility] Address Unknown Phone Unavailable Care Team Providers Care Hide Inspector Name Role Phone Chaim Roy Primary Care Physician [phone] Encounter [facility] Date(s): 06/19/16 - 06/19/16 [facility] [address] [place], [place] [address] Discharge Diagnosis: Actinic keratoses Discharge Diagnosis: History of skin cancer Discharge Diagnosis: Seborrheic keratoses Discharge Disposition: 01-Home or Self Care [...] DAILY, # 100 tabs, 3 Refill(s), eRx: [facility], TAKE ONE-HALF TABLET BY MOUTH TWICE DAILY Start Date: 07/07/15 Status: Ordered multivitamin 1 tabs, Oral, Daily Start Date: 07/01/14 Status: Ordered pravastatin 10 mg oral tablet See Instructions, TAKE ONE TABLET BY MOUTH ONCE DAILY, # 90 tabs, 1 Refill(s), eRx: [facility], TAKE ONE TABLET BY MOUTH [...] Diagnosis Body Site Destruction (eg, laser surgery, 06/19/16 electrosurgery, cryosurgery, chemosurgery, surgical curettement), premalignant lesions (eg, actinic keratoses); first lesion Destruction (eg, laser surgery, 06/19/16 electrosurgery, cryosurgery, chemosurgery, surgical curettement), premalignant lesions (eg, actinic keratoses); second through 14 lesions, each (List separately in addition to code for first lesion) Biopsy Bone Marrow1 03/29/16 Procedure with Anesthesia2 03/29/16 CT R acetabular fx3 10/08/08 S/P colonoscopy4 08/16/07 tonsilectomy 1936 1auto-populated from documented surgical case 2auto-populated from documented surgical case [facility] - Acc 10/07/08 rec 4WNL; repeat 10 years Social History Social History Type Response Smoking Status Never smoker Assessment and Plan Extracted from: Title: Office Visit Note Author: Jorgito Gomez MD Date: 06/19/16 Assessment/Plan 1.Actinic keratoses -Initiating 5% efudex cream twice daily x 3 weeks to right preauricular cheek andL postauricular neck; pt warned regarding irritation, redness, and photosensitivity; informed pt that blistering eruptions and sores rarely develop. Instructed pt to d/c this medication and call the clinic ifthey develop blisters or sores from the medication; instructed pt not to apply medication near eyes or mouth and wash hands immediately after application. -12 lesions treated with cryotherapy; see physical examination above for locations -Cryotherapy [...] 6 weeks Ordered: Destruction premalignant lesion 1st [address]3910 Destruction premalignant lesion 2-14, Each 01276 Office Visit Level 3 Est 43170 2.History of skin cancer -No evidence of recurrence [...] hat Ordered: Office Visit Level 3 Est 06408 3.Seborrheic keratoses -Reassurance regarding the benign nature of these lesions -Discussed ABCDEs of melanoma and recommended monthly skin self-examination -Recommended pt schedule a clinic appointment for anyconcerning lesions Ordered: Office Visit Level 3 Est 38807
--- OUTSIDE RECORDS SUMMARY | 2016-12-11 10:02 | XMS REPORT | Summary of Care ---
Author Author Manuela Morrison, Donis Organization Unknown Address Unknown Phone Unavailable Care Team Providers Care Go Go Dancer Name Role Phone Yudi Yarbrough Unavailable Hannah [...] TWICE DAILY. Quantity: 60 * Start Active [place] Thyroid 60 MG Oral Tablet TAKE TWO [...] as needed * Quantity: 60 Refills: 3 VanzantDonis leon M.D. * Start 11-Jan-2016 Active Calcium [...] MOUTH DAILY * Quantity: 30 Refills: 11 VanzantDonis leon M.D. * Start 18-Aug-2016 Active Imodium [...] Start 09-Oct-2016 Active 30 ML Tube Nystatin 795192 UNIT/ML Mouth/Throat Suspension SWISH AND SWALLOW 5ML [...] ML Intramuscular Suspension Prefilled Syringe Lot #: [id number] on: 18-Jul-2016 Family History Name Dates Details [...] >60 ml/min Range: >60 EST GFR, NON-AFR [place] 60 ml/min (Below low threshold) Range: >60 [...] On 07-Nov-2016 10:00 Interventions Provided Medication Changes* Nystatin 810600 UNIT/ML Mouth/Throat Suspension - Start Instructions Name Dates Details Instructions [...]
--- OUTSIDE RECORDS SUMMARY | 2016-12-11 10:03 | XMS REPORT | Summary of Care ---
Author Author Donis Roy M.D. Organization Unknown Address [address] [place], [place] [id number] Phone Unavailable Care Team Providers Care Reel Film Inspector Name Role Phone Donis Roy M.D. Unavailable [...] Status: Active Insomnia (780.52, G47.00) Status: Active Medications Name Dates Details Metoprolol [...] 0 Donis Roy M.D.* Started 11-Jan-2016 ActiveSaw [place] Oral Capsule TAKE 1 CAPSULE DAILY. * [...]
--- OUTSIDE RECORDS SUMMARY | 2016-12-11 10:03 | XMS REPORT | Summary of Care ---
Author Author Manuela Morrison, Donis Organization Unknown Address Unknown Phone Unavailable Care Team Providers Care Navy Diver Name Role Phone Yudi Yarbrough Unavailable Unavailable Donis Roy M.D. Unavailable Unavailable Michelle Winn M.D. Unavailable Unavailable Donis Roy Unavailable Unavailable Unavailable Unavailable Functional Status Name Dates Details Functional status health issues are not documented Status: Name Dates Details Cognitive status health issues are not documented Status: Problems Name Dates Details Thyroid disease (246.9, E07.9) Status: Active Pacemaker [...] Active Arm edema (782.3, R60.0) Status: Active Medications Name Dates Details Metoprolol Tartrate 50 MG Oral Tablet TAKE 1/2 TABLET TWICE DAILY. Griffin Winn M.D. * Start Active [place] Thyroid 60 MG Oral Tablet Take 2 tab daily alternating with 2 1/2 tab every other day * Quantity: 180 Refills: 0 [place] M.D., Donis * Start Active Pravastatin Sodium [...] TAKE 1 TABLET DAILY. * Refills: 0 [place] M.D., Donis * Start 11-Jan-2016 Active Eliquis 5 MG Oral Tablet Take twice daily * Quantity: 60 Refills: 6 [place] M.D., Donis * Start 11-Jan-2016 Active Lasix 20 MG Oral Tablet TAKE 1 TABLET DAILY. * Refills: 0 [place] M.D., Donis * Start 11-Jan-2016 Active Calcium Carbonate 500 (200 Ca) MG Oral Wafer Take 1 daily * Refills: 0 Manuela M.D., Donis * Start 11-Jan-2016 Active Vitamin B Complex Oral Tablet TAKE 1 TABLET DAILY. * Refills: 0 [place] M.D., Donis * Start 11-Jan-2016 Active Vitamin C 500 MG Oral Tablet Chewable CHEW AND SWALLOW 1 TABLET DAILY. * Refills: 0 Manuela M.D., Donis * Start 11-Jan-2016 Active Saw [place] Oral Capsule TAKE 1 CAPSULE DAILY. * Refills: 0 Manuela M.D., Donis * Start 11-Jan-2016 Active Supplies Auto CPAP 8-12 cm H2O Permanent use Dx:G47.33 AirSense 10 with heated tubing/ humidity mask headgear filter H2O chamber tubing chinstrap * Quantity: 1 Refills: 0 Andres P.A.Yudi * Start Active Allergies and Adverse Reactions [...] of Colonoscopy CBC w/ Auto Diff 7150 Ordered: Comprehensive Metabolic Panel 1212 Ordered: BNP 3103 Ordered: THYROID STIM. HORMONE 3602 Ordered: Triiodothyronine,Free,Serum ( T3) [id number] Ordered: FREE T4 3604 Ordered: D - DIMER 7505 Ordered: Immunization Name Dates Details Immunizations not [...] smoker Vital Signs Date Test Result Details 15:03 BP Systolic 120 mm[Hg] Status: Comments: Location: ; Position: BP Diastolic 64 mm[Hg] Status: Comments: Location: ; Position: Temperature 97.8 f Status: Heart Rate 73 /min Status: Comments: Location: ; Weight 137 lb Status: Physical Findings 97 Status: Comments: O2 Saturation Body Mass Index Calculated 22.11 kg/m2 Status: Body Surface Area Calculated 1.7 m2 Status: 15:15 BP Systolic 118 mm[Hg] Status: Comments: Location: LUE; Position: Sitting BP Diastolic 82 mm[Hg] Status: Comments: Location: LUE; Position: Sitting Heart Rate 63 /min Status: Comments: Location: ; Height 66 in Status: Weight 140 lb Status: Physical Findings 93 Status: Comments: O2 Saturation Body Mass Index Calculated 22.6 kg/m2 Status: Body Surface Area Calculated 1.72 m2 Status: Results Date Description Value Details Results not documented Plan of Care Name Dates Details Planned Observations Planned Goals not documented Interventions Provided Labs/Procedures/Imaging* BNP 3103; To be Done: 07 Mar 2016 * CBC w/ Auto Diff 7150; To be Done: 07 Mar 2016 * Comprehensive Metabolic Panel 1212; To be Done: 07 Mar 2016 * D - DIMER 7505; To be Done: 07 Mar 2016 * FREE T4 3604; To be Done: 07 Mar 2016 * THYROID STIM. HORMONE 3602; To be Done: 07 Mar 2016 * Triiodothyronine,Free,Serum ( T3) [id number]; To be Done: 07 Mar 2016 Instructions Name Dates Details Instructions [...]
--- OUTSIDE RECORDS SUMMARY | 2016-12-11 10:03 | XMS REPORT | Summary of Care ---
Author Author Manuela Morrison, Donis Organization Unknown Address Unknown Phone Unavailable Care Team Providers Care Ct Scan Tech Name Role Phone Yudi Yarbrough Unavailable Unavailable [...] DAILY. Griffin Winn M.D. * Start Active [place] Thyroid 60 MG Oral Tablet TAKE TWO AND ONE-HALF TABLETS BY MOUTH DAILY * Quantity: 180 Refills: 11 [place] M.D., Donis * Start 23-Mar-2016 Active Pravastatin [...] TABLET DAILY. * Quantity: 30 Refills: 6 [place] M.D., Donis * Start 11-Jan-2016 Active Calcium Carbonate 500 (200 Ca) MG Oral Wafer Take 1 daily * Refills: 0 [place] M.D., Donis * Start 11-Jan-2016 Active Vitamin B Complex Oral Tablet TAKE 1 TABLET DAILY. * Refills: 0 [place] M.D., Donis * Start 11-Jan-2016 Active Vitamin C 500 MG Oral Tablet Chewable CHEW AND SWALLOW 1 TABLET DAILY. * Refills: 0 [place] M.D., Donis * Start 11-Jan-2016 Active Saw [place] Oral Capsule TAKE 1 CAPSULE DAILY. * Refills: 0 [place] M.D., Donis * Start 11-Jan-2016 Active Supplies [...] BP Systolic 120 mm[Hg] Status: Comments: Location: E; Position: Sitting BP Diastolic 64 mm[Hg] Status: [...] >60 ml/min Range: >60 EST GFR, NON-AFR GAMBIAN 56 ml/min (Below low threshold) Range: >60 Comments: EST GFR is reported in ml/min per 1.73 m2 of body surface area. For -German, please multiple result by 1.2.----- GLUCOSE 97 [...] Range: 0-7 BASO 0 % Range: 0-3 FOE LYMPH 0 % Range: 0-0 META 0 [...] ng/dL Range: 0.80-1.67 13:11 Triiodothyronine,Free,Serum ( T3) [id number] Comments: Testing performed at: [DA] [facility], [address] [place] [address], [place], [address], , Commercial Announcer: RAND Ashley MD TRIIODOTHYRONINE,FREE,SERUM 3.9 pg/mL Range: [...] Observations CBC w/ Manual Diff 7225 On 24-Mar-2016 Intent Planned Goals not documented Instructions Name [...]
--- OUTSIDE RECORDS SUMMARY | 2016-12-11 10:03 | XMS REPORT ---
Author Author Eden Pyle Organization [employer] Address Unknown Phone Unavailable Care Team Providers Care Meat Passer Name Role Phone Eden Pyle CP Unavailable [...]
--- OUTSIDE RECORDS SUMMARY | 2016-12-11 10:03 | XMS REPORT | Summary of Care ---
Author Author Manuela Morrison, Donis Organization Unknown Address Unknown Phone Unavailable Care Team Providers Care Table Worker Packager Name Role Phone Yudi Yarbrough Unavailable Hannah [...] TWICE DAILY. Quantity: 60 * Start Active [place] Thyroid 60 MG Oral Tablet TAKE TWO [...] 0 Donis Roy M.D. Start 18-Aug-2016 Active Lidocaine HCl - 2 % External Gel Apply QID PRN * Quantity: 1 Refills: 2 Donis Roy M.D. * Start 09-Oct-2016 Active 30 ML Tube Nystatin 462854 UNIT/ML Mouth/Throat Suspension SWISH AND SWALLOW 5ML [...] Esophagogastroduodenoscopy CBC w/ Auto Diff 7150 Ordered: 30-Oct-2016 Immunization Name Dates Details Fluzone High-Dose SUSP on: 18-Jul-2016 Fluzone High-Dose 0.5 ML Intramuscular Suspension Prefilled Syringe Lot #: [id number] on: 18-Jul-2016 Family History Name Dates Details [...] m2 Status: Results Date Description Value Details 03-Oct-2016 14:04 CBC w/ Auto Diff 7150 [...] >60 ml/min Range: >60 EST GFR, NON-AFR OMANI 60 ml/min (Below low threshold) Range: >60 [...] >60 ml/min Range: >60 EST GFR, NON-AFR OMANI >60 ml/min Range: >60 Comments: EST GFR [...] w/ Auto Diff 7150; To be Done: 30 Oct 2016 Instructions Name Dates Details Instructions [...]
--- OUTSIDE RECORDS SUMMARY | 2016-12-11 10:03 | XMS REPORT | Summary of Care ---
Author Author Manuela Morrison, Donis Organization Unknown Address Unknown Phone Unavailable Care Team Providers Care Show Horse Driver Name Role Phone Yudi Yarbrough Unavailable Hannah [...] N39.0) Status: Active Medications Name Dates Details Pravastatin Sodium 10 MG Oral Tablet TAKE 1 TABLET DAILY. * Start Active Multi Vitamin Mens Oral Tablet TAKE 1 TABLET DAILY. * Refills: 0 Griffin Winn M.D. * Start Active Allopurinol 300 MG Oral Tablet Take 1 1/2 tabs daily. * Quantity: 135 Refills: 3 Aaron Roy M.D. Start 11-Jan-2016 Active Furosemide 20 MG Oral [...] MOUTH DAILY * Quantity: 30 Refills: 11 [place] M.D.Donis * Start 18-Aug-2016 Active Imodium A-D 2 MG Oral Tablet TAKE 2 TABLETS INITIALLY, FOLLOWED BY 1 TABLET AFTER EACH LOOSE BOWEL MOVEMENT. DO NOT EXCEED 8 TABLETS/DAY. * Refills: 0 [place] M.D.Donis * Start 18-Aug-2016 Active Acetaminophen 325 MG Oral Tablet Take 2 tabs po every 4 hours PRN * Refills: 0 [place] M.D., Donis * Start 18-Aug-2016 Active Lidocaine HCl - 2 % External Gel Apply QID PRN * Quantity: 1 Refills: 2 Manuela M.D.Donis * Start 09-Oct-2016 Active 30 ML Tube Nystatin [id number] UNIT/ML Mouth/Throat Suspension SWISH AND SWALLOW 5ML 4 TIMES DAILY. * Quantity: 200 Refills: 0 Manuela M.D.Donis * Start 18-Oct-2016 Active Sulfamethoxazole-Trimethoprim 800-160 MG Oral Tablet TAKE 1 TABLET TWICE DAILY. * Quantity: 10 Refills: 0 [place] M.D.Donis * Start 07-Nov-2016 Active Losartan Potassium 50 MG Oral Tablet TAKE 1 TABLET DAILY. * Quantity: 90 Refills: 3 [place] M.D.Donis * Start 11-Jan-2016 Active [place] Thyroid 60 MG Oral Tablet TAKE TWO AND ONE-HALF TABLETS BY MOUTH DAILY * Quantity: 180 Refills: 11 [place] M.D., Donis * Start 23-Mar-2016 Active Metoprolol Tartrate 25 MG Oral Tablet TAKE 1 TABLET TWICE DAILY. * Quantity: 60 Refills: 11 * Start Active Allergies and Adverse Reactions [...] ML Intramuscular Suspension Prefilled Syringe Lot #: [id number] on: 18-Jul-2016 Family History Name Dates Details [...] >60 ml/min Range: >60 EST GFR, NON-AFR [place]URM[place] >60 ml/min Range: >60 Comments: EST GFR [...] 11:03 Urinalysis, reflex to Micro and Culture ([facility]) 4197 Comments: Testing performed by [facility], [address], [place] [address] Testing performed by [facility], [address], [place] [address] pH 6.0 Range: 5.0-7.5 SP GRAVITY 1.015 [...] Slight OVAL Present 10-Nov-2016 09:26 URINE CULTURE [id number] Comments: Green Genes performed at: [facility], [address], Resume Writer: Cameron Beaulieu D.O., MPHQuest Collection Date/Time: [id number] Results Received Date/Time: [id number] Reported Date/Time: FASTING:NOQuest [facility]: [facility], [address] [place] [address], [address], Resume Writer: Cameron Beaulieu D.O., MPHQuest Collection Date/Time: [id number] Results Received Date/Time: [id number] Reported Date/Time: FASTING:NO CULTURE, URINE, ROUTINE SEE NOTE (Abnormal) Comments: CULTURE, URINE, ROUTINE MICRO NUMBER: [id number] TEST STATUS: FINAL SPECIMEN SOURCE : URINE [...] Oropeza M.D. On 15-Nov-2016 11:00 Interventions Provided Medication Changes* Sulfamethoxazole-Trimethoprim 800-160 MG [...]
--- OUTSIDE RECORDS SUMMARY | 2016-12-11 10:04 | XMS REPORT | Summary of Care ---
Author Author Aaron Roy M.D. Organization Unknown Address Unknown Phone Unavailable Care Team Providers Care Library Manager Name Role Phone Yudi Yarbrough Unavailable Donis [...] DAILY. Griffin Winn M.D. * Start Active [place] Thyroid 60 MG Oral Tablet TAKE TWO AND ONE-HALF TABLETS BY MOUTH DAILY * Quantity: 180 Refills: 11 [place] M.D., Donis * Start 23-Mar-2016 Active Pravastatin [...] Tablet TAKE 1 TABLET DAILY. * Quantity: 120 Refills: 2 Pope Chaim.Aaron Bermudez * Start 11-Jan-2016 Active Eliquis 5 MG Oral Tablet Take twice daily * Quantity: 60 Refills: 6 Pope M.D.Donis * Start 11-Jan-2016 Active Lasix 40 MG Oral Tablet TAKE 1 TABLET DAILY. * Quantity: 30 Refills: 6 Pope M.D., Donis * Start 11-Jan-2016 Active Calcium Carbonate 500 (200 Ca) MG Oral Wafer Take 1 daily * Refills: 0 Pope M.Lara, Donis * Start 11-Jan-2016 Active Vitamin B Complex Oral Tablet TAKE 1 TABLET DAILY. * Refills: 0 Pope M.D., Donis * Start 11-Jan-2016 Active Vitamin C 500 MG Oral Tablet Chewable CHEW AND SWALLOW 1 TABLET DAILY. * Refills: 0 Pope M.D., Donis * Start 11-Jan-2016 Active Saw [place] Oral Capsule TAKE 1 CAPSULE DAILY. * Refills: 0 Pope M.D., Donis * Start 11-Jan-2016 Active Supplies [...] History of Colonoscopy History of Pacemaker Placement URIC ACID 1155 Ordered: 12-Apr-2016 Immunization Name Dates Details Immunizations not documented [...] smoker Vital Signs Date Test Result Details 12-Apr-2016 10:49 BP Systolic 124 mm[Hg] Status: Comments: Location: ; Position: BP Diastolic 80 mm[Hg] Status: Comments: Location: ; Position: Temperature 98.1 f Status: Comments: Method: Heart Rate 83 /min Status: Comments: Location: ; Weight 136 lb Status: Physical Findings 99 Status: Comments: O2 Saturation Body Mass Index Calculated 21.95 kg/m2 Status: Body Surface Area Calculated 1.7 m2 Status: 13-Mar-2016 15:42 BP Systolic 138 mm[Hg] Status: Comments: Location: ; Position: BP Diastolic 88 mm[Hg] Status: Comments: Location: ; Position: Temperature 97.1 f Status: Comments: Method: Heart Rate 69 /min Status: Comments: Location: ; Weight 129 lb Status: Physical Findings 96 Status: Comments: O2 Saturation Body Mass Index Calculated 20.82 kg/m2 Status: Body Surface Area Calculated 1.66 m2 Status: Results Date Description Value Details 13-Mar-2016 16:24 ECG/ EKG CP - Electro [...] (Abnormal) Range: Adequate ANISO Mod MACROCYT Slight Plan of Care Name Dates Details Planned Observations Planned Goals not documented Planned Encounters Appointment; Provider: Griffin Winn M.D. On 03-May-2016 13:30 Interventions Provided Medication Changes* Allopurinol 300 MG Oral Tablet - Renew Labs/Procedures/Imaging* URIC ACID 1155; To be Done: 12 Apr 2016 Instructions Name Dates Details Instructions not [...]
--- OUTSIDE RECORDS SUMMARY | 2016-12-11 10:04 | XMS REPORT | Summary of Care ---
Author Author Oneyda Francisco Unknown Address [address] [place] [address] Phone Unavailable Care Team Providers Care Java Developer Analyst Name Role Phone Tatum Morrison, O Unavailable [...] of Hip Repair History of Hernia Repair CT CHEST WITHOUT IV CONTRAST Ordered: Immunization Name Dates Details Immunizations not [...] low threshold) Range: >60 EST GFR, NON-AFR [place] 48 ml/min (Below low threshold) Range: >60 Comments: EST GFR is reported in ml/min per 1.73 m2 of body surface area. For -Afghan, please multiple result by 1.2.----- GLUCOSE 104 [...]
--- OUTSIDE RECORDS SUMMARY | 2016-12-11 10:04 | XMS REPORT | Summary of Care ---
Author Author Michelet Oropeza M.D. Unknown Address Unknown Phone Unavailable Care Team Providers Care Account Relationship Manager Name Role Phone Sandip Morrison, Trent Unavailable Unavailable Yudi Yarbrough Unavailable Unavailable Manuela Morrison, Donis Unavailable Unavailable Manuela Morrison, Aaron Unavailable Unavailable Tatum Morrison, Michelle Unavailable Unavailable Donis Roy Unavailable Unavailable Unavailable Unavailable Functional Status Name Dates Details Functional status health issues are not documented Status: Name Dates Details Cognitive status health issues are not documented Status: Problems Name Dates Details Insomnia (780.52, G47.00) Status: Active Low back pain (724.2, M54.5) Status: Active Left-sided epistaxis (784.7, R04.0) Status: Active Right-sided epistaxis (784.7, R04.0) Status: Active Fatigue (780.79, R53.83) Status: Active Fever (780.60, R50.9) Status: Active Gout (274.9, M10.9) Status: Active Acid reflux (530.81, K21.9) Status: Active 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, Z95.0) Status: Active Atherosclerosis (440.9, I70.90) Status: Active Thyroid disease (246.9, E07.9) Status: Active Edema extremities (782.3, R60.0) Status: Active Upper GI bleed (578.9, K92.2) Status: Active Anemia (285.9, D64.9) Status: Active Atrial fibrillation (427.31, I48.91) Status: Active Pulmonary hypertension (416.8, I27.2) Status: Active Chronic cough (786.2, R05) Status: Active Diarrhea (787.91, R19.7) Status: Active Dyspnea (786.09, R06.00) Status: Active Hypersomnolence (780.54, G47.10) Status: Active Chronic kidney disease (585.9, N18.9) Status: Active Restless leg syndrome (333.94, G25.81) Status: Active Screening PSA (prostate specific antigen) (V76.44, Z12.5) Status: Active Thrombocytopenia (287.5, D69.6) Status: Active Left-sided chest wall pain (786.52, R07.89) Status: Active Swelling of hand (729.81, M79.89) Status: Active Bilateral pleural effusion (511.9, J90) Status: Active Edema of face (782.3, R60.0) Status: Active Chest pain (786.50, R07.9) Status: Active Hypertension (401.9, I10) Status: Active Hypocalcemia (275.41, E83.51) Status: Active Hypocalcemia (275.41, E83.51) Status: Active Obstructive sleep apnea syndrome, 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 Quantity: 60 * Start Active [place] Thyroid 60 MG Oral Tablet TAKE TWO [...] Wafer Take 2 daily * Refills: 0 [place] AfbDonis leon M.D. * Start 11-Jan-2016 Active Supplies Auto [...] DAILY * Quantity: 30 Refills: 11 Manuela M.Donis Bermudez * Start 18-Aug-2016 Active Imodium A-D 2 [...] History of Heart Valve Replacement History of Hernia Repair History of Hip Repair History of Pacemaker Placement History of Colonoscopy History of Esophagogastroduodenoscopy Comprehensive Metabolic Panel 1212 Ordered: 05-Sep-2016 URIC ACID 1155 Ordered: 05-Sep-2016 CBC w/ Auto Diff 7150 Ordered: 18-Sep-2016 Immunization Name Dates Details Fluzone High-Dose SUSP on: 18-Jul-2016 Fluzone High-Dose 0.5 ML Intramuscular Suspension Prefilled Syringe Lot #: [id number] on: 18-Jul-2016 Family History Name Dates Details [...]
--- OUTSIDE RECORDS SUMMARY | 2016-12-11 10:04 | XMS REPORT | Continuity of Care Document ---
Author Author [facility] Address Unknown Phone Unavailable Care Team Providers Care Diversity Manager Name Role Phone GARRETT, MARY LOU Rucker MD Primary Care Physician [phone] Insurance Providers Payer Name Policy Number Subscriber Name Relationship Medicare A And B [id number] Delon Sierra 16 Self / Same As Patient Other1 [id number] Delon Sierra 16 Self / Same As Patient Advance Directives Directive Response Recorded Date/Time Advanced Directives Unknown 08/08/16 1:15pm Chief Complaint and Reason for Visit Chief Complaint Pain Reason for Visit Edema Problems Active Problems Medical Problem Onset Date Status Coagulopathy Unknown Acute Edema Unknown Acute GI bleed ~07/29/2016 Acute Weakness [...] No hospital discharge instructions. Plan of Care Discharge Date 08/08/16 4:20pm Disposition 01 HOME OR SELF-CARE Condition at Discharge Stable Instructions/Education Provided Dependent Edema (DC) Prescriptions See Medication Section Referrals MARY LOU TUCKER MD - Additional Instructions/Education Some of your test results may not be complete prior to your leaving the Emergency Department. The Emergency Department is not authorized to give test results over the phone. Please contact the doctor's office listed in this packet of information for your final results. Follow up with your primary care physician or return to the Emergency Department for worsening or worrisome symptoms. * Emergency Department phone number: [phone], x [phone]* MEDICAL RECORD If you need copies of your X-rays, call [phone]. If you need copies of your medical record, including lab results, a signed authorization for release of records will be required. A telephone call for release of Health Information is not allowed. BILLING Billing can sometimes be confusing and frustrating. To help avoid confusion in the future, please take a moment to acquaint yourself with the billing parties for services. SERVICE BILLING [employer]STITUTION [employer]Y Emergency Room Services [facility] Physician Services [facility] X-rays [facility] Patients will receive bills for services from the appropriate provider. If you have any questions about your [facility] bill, our staff will be happy to assist you. Please call [phone], and ask for the billing department. THANK YOU for choosing [facility] as your emergency care provider! Care Plan and Goals ~~Discharge Care Plan~~ Problem:pain Goal:decreased pain Instructions:follow up with pcp Functional Status No functional status results. Allergies, Adverse Reactions, Alerts No known allergies. Immunizations No immunization records. Vital Signs Acute Vital Signs Vital Response Date/Time Temperature (Fahrenheit) 98.7 08/08/2016 4:27pm Pulse 75 bpm 08/08/2016 4:27pm Respirations 18 08/08/2016 4:27pm Height 5 ft 8 in Weight 141 lb Body Mass Index 21.0 kg/m^2 Results Laboratory Results Test Name Result [...] 8.0 07/31/2016 6:53pm 07/31/2016 8:37pm Urine Specific [place] 1.015 1.005-1.030 07/31/2016 6:53pm 2015 8:37pm Urine [...] 0.038 ng/mL 0.010-0.080 07/29/2016 3:14pm 07/29/2016 3:59pm XV-Dqz-W-Type Natriuretic Peptide 7050 pg/mL H 0-450 07/29/2016 [...] mmol/L 0.7-2.1 07/31/2016 6:00am 07/31/2016 7: 01am PATHOLOGY [facility] 08/02/2016 1:00pm 08/03/2016 2:58pm Results received from [facility] Lab [id number] PERIPHERAL SMEAR - SO [facility] 07/29/2016 5:15pm 08/04/2016 9:37am Results received from [facility] Lab [id number] Pending Laboratory Results Test Name Collection Date/Time Procedures Procedure Status Date Provider(s) INSPECTION OF UPPER INTESTINAL TRACT, ENDO Completed 08/01/16 KIRA TEAGUE MD EXCISION OF SIGMOID COLON, ENDO, DIAGN Completed 08/02/16 JOHNATHON SOTO MD Encounters Encounter Location Arrival/Admit Date Discharge/Depart Date Attending Provider Departed Emergency Room [facility] 08/08/16 1:07pm 08/08/16 4:20pm CHASE VUONG MD Discharged Inpatient [facility] 07/29/16 4:00pm 08/02/16 3:45pm RENETTA MONROE DO Recent Diagnosis
--- OUTSIDE RECORDS SUMMARY | 2016-12-11 10:04 | XMS REPORT | Summary of Care ---
Author Author Donis Roy M.D. Organization Unknown Address [address] [place], [place] [id number] Phone Unavailable Care Team Providers Care Sand Tester Name Role Phone Donis Roy M.D. 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 * [...] Dates Details Immunizations not documented Family History natural son* Name Dates Details Family history of sleep apnea (V19.8, Z82.0) Status: Active Mother* Name Dates Details Family history of lung cancer (V16.1, Z80.1) Status: Active Father* Name Dates Details Family history of cerebrovascular accident (CVA) (V17.1, Z82.3) Status: Active Brother* Name Dates Details Family history of Bone cancer (170.9, C41.9) Status: Active Social History Name Dates Details Smoking Status* Never smoker Vital Signs Date Test Result Details 15:19 BP Systolic 122 mm[Hg] Status: BP Diastolic 74 mm[Hg] Status: Heart Rate 74 /min Status: Height 66 in Status: Weight 134.5 lb Status: O2 SAT 92 % Status: Body Mass Index Calculated 21.71 kg/m2 Status: Body Surface Area Calculated 1.69 m2 Status: 11-Jan-2016 10:19 BP Systolic 124 mm[Hg] Status: [...] (Better) Range: 0.80-1.67 08:39 Triiodothyronine,Free,Serum ( T3) [id number] Comments: Testing performed at: [DA] [facility], [address] [place] [address], [place], [address], , Fitness Plan Coordinator: RAND Ashley MD TRIIODOTHYRONINE,FREE,SERUM 5.3 pg/mL (Above high threshold) Range: 2.0- 4.4 Plan of Care Planned Observations* Name Dates Details Planned Goals not documented Goal Planned Encounters* Appointment; Provider: Griffin Winn On 15:00 Instructions * Instructions not documented Encounters Appointment; Griffin Winn Encounter Diagnosis: Problem not documented On 15:15 Appointment; Donis Roy Encounter Diagnosis: Problem not documented On 11-Jan-2016 10:45 Appointment; Josep Dao Encounter Diagnosis: Problem not documented On 15-Nov-2015 14:45 Appointment; Griffin Winn Encounter Diagnosis: Problem not documented On 15-Apr-2015 10:30 Appointment; Griffin Winn Encounter Diagnosis: Problem not documented On 13:00
--- OUTSIDE RECORDS SUMMARY | 2016-12-11 10:05 | XMS REPORT | Summary of Care ---
Author Author Manuela Morrison, Donis Organization Unknown Address Unknown Phone Unavailable Care Team Providers Care Weather Stripper Name Role Phone Yudi Yarbrough Unavailable Hannah [...] TWICE DAILY. Quantity: 60 * Start Active [place] Thyroid 60 MG Oral Tablet TAKE TWO AND ONE-HALF TABLETS BY MOUTH DAILY * Quantity: 180 Refills: 11 HoustonDonis leon M.D. * Start 23-Mar-2016 Active Pravastatin Sodium 10 MG Oral Tablet TAKE 1 TABLET DAILY. * Refills: 0 * Start Active Multi Vitamin Mens Oral Tablet TAKE 1 TABLET DAILY. * Refills: 0 Griffin Winn M.D. * Start Active Losartan Potassium 50 MG Oral Tablet TAKE 1 TABLET DAILY. * Quantity: 90 Refills: 3 [place]is leon M.D. * Start 11-Jan-2016 Active Furosemide 20 MG Oral Tablet Take 1-2 tabs po q day as needed * Quantity: 60 Refills: 3 [place] leon M.D. * Start 11-Jan-2016 Active Calcium Carbonate 500 (200 Ca) MG Oral Wafer Take 2 daily * Refills: 0 Donis Roy M.D. * Start 11-Jan-2016 Active Supplies Resmed S10 AirCurve 20/15 cm H2O, Permanent use, 327.23, Heated humidity, mask, headgear, filters, heated tubing, water chamber, chinstrap * Quantity: 1 Refills: 0 Andres P.A., Yudi * Start 03-May-2016 Active Imodium A-D 2 MG Oral Tablet TAKE 2 TABLETS INITIALLY, FOLLOWED BY 1 TABLET AFTER EACH LOOSE BOWEL MOVEMENT. DO NOT EXCEED 8 TABLETS/DAY. * Refills: 0 Donis Roy M.D. * Start 18-Aug-2016 Active Acetaminophen 325 MG Oral Tablet Take 2 tabs po every 4 hours PRN * Refills: 0 Donis Ryo M.D. Start 18-Aug-2016 Active Lidocaine HCl - 2 % External Gel Apply QID PRN * Quantity: 1 Refills: 2 Donis Roy M.D. * Start 09-Oct-2016 Active 30 ML Tube Pantoprazole Sodium 40 MG Oral Tablet Delayed Release TAKE 1 TABLET BY MOUTH DAILY * Quantity: 30 Refills: 11 Donis Roy M.D. * Start 18-Aug-2016 Active Allopurinol 300 MG Oral Tablet Take 1 1/2 tabs daily. * Quantity: 135 Refills: 3 Aaron Roy M.D. * Start 11-Jan-2016 Active Supplies [...] Esophagogastroduodenoscopy CBC w/ Auto Diff 7150 Ordered: 18-Sep-2016 URIC ACID 1155 Ordered: 05-Sep-2016 Comprehensive Metabolic Panel 1212 Ordered: 05-Sep-2016 Immunization Name Dates Details Fluzone High-Dose SUSP on: 18-Jul-2016 Fluzone High-Dose 0.5 ML Intramuscular Suspension Prefilled Syringe Lot #: [id number] on: 18-Jul-2016 Family History Name Dates Details [...] >60 ml/min Range: >60 EST GFR, NON-AFR [place]AN 60 ml/min (Below low threshold) Range: >60 [...] Provider: Michelet Oropeza M.D. On 23-Sep-2016 10:15 Interventions Provided Medication Changes* Colchicine 0.6 MG [...]
--- OUTSIDE RECORDS SUMMARY | 2016-12-11 10:05 | XMS REPORT | Summary of Care ---
Author Author Manuela Morrison, Donis Organization Unknown Address Unknown Phone Unavailable Care Team Providers Care Fishery Biologist Name Role Phone Yudi Yarbrough Unavailable Hannah [...] TWICE DAILY. Quantity: 60 * Start Active [place] Thyroid 60 MG Oral Tablet TAKE TWO [...] Wafer Take 2 daily * Refills: 0 [place] M.DDonis Collins * Start 11-Jan-2016 Active Supplies [...] NOT EXCEED 8 TABLETS/DAY. * Refills: 0 [place] M.Donis Bermudez * Start 18-Aug-2016 Active Acetaminophen [...] ML Intramuscular Suspension Prefilled Syringe Lot #: [id number] on: 18-Jul-2016 Family History Name Dates Details [...] low threshold) Range: >60 EST GFR, NON-AFR [place] 48 ml/min (Below low threshold) Range: >60 [...]
--- OUTSIDE RECORDS SUMMARY | 2016-12-11 10:05 | XMS REPORT | Summary of Care ---
Author Author Manuela Morrison, Donis Organization Unknown Address Unknown Phone Unavailable Care Team Providers Care Basic Acoustic Analyst Name Role Phone Yudi Yarbrough Unavailable Hannah [...] TWICE DAILY. Quantity: 60 * Start Active [place] Thyroid 60 MG Oral Tablet TAKE TWO [...] Wafer Take 2 daily * Refills: 0 [place] M.DDonis Collins * Start 11-Jan-2016 Active Supplies [...] NOT EXCEED 8 TABLETS/DAY. * Refills: 0 [place] M.DDonis Collins * Start 18-Aug-2016 Active Acetaminophen 325 MG Oral Tablet Take 2 tabs po every 4 hours PRN * Refills: 0 [place] M.D.Donis * Start 18-Aug-2016 Active Lidocaine HCl - 2 % External Gel Apply QID PRN * Quantity: 1 Refills: 2 [place] M.D.Donis * Start 09-Oct-2016 Active 30 ML [...] ML Intramuscular Suspension Prefilled Syringe Lot #: [id number] on: 18-Jul-2016 Family History Name Dates Details [...]
--- OUTSIDE RECORDS SUMMARY | 2016-12-11 10:05 | XMS REPORT | Summary of Care ---
Author Author Manuela Morrison, Donis Organization Unknown Address Unknown Phone Unavailable Care Team Providers Care Grain I Farmworker Name Role Phone Yudi Yarbrough Unavailable Hannah [...] TWICE DAILY. Quantity: 60 * Start Active [place] Thyroid 60 MG Oral Tablet TAKE TWO [...] MOUTH DAILY * Quantity: 30 Refills: 11 [place] M.Michelle.Donis * Start 18-Aug-2016 Active Imodium A-D [...] QID PRN * Quantity: 1 Refills: 2 [place] M.D.Dnois * Start 09-Oct-2016 Active 30 ML Tube Nystatin [id number] UNIT/ML Mouth/Throat Suspension SWISH AND SWALLOW 5ML [...] ML Intramuscular Suspension Prefilled Syringe Lot #: [id number] on: 18-Jul-2016 Family History Name Dates Details [...] >60 ml/min Range: >60 EST GFR, NON-AFR [place] 60 ml/min (Below low threshold) Range: >60 [...] >60 ml/min Range: >60 EST GFR, NON-AFR [place] >60 ml/min Range: >60 Comments: EST GFR [...] 11:03 Urinalysis, reflex to Micro and Culture ([facility]) 7224 Comments: Testing performed by [facility], [address], [place] [address] Testing performed by [facility], [address], [place] [address] pH 6.0 Range: 5.0-7.5 SP GRAVITY 1.015 [...] Range: 0-7 BASO 0 % Range: 0-3 OEF LYMPH 0 % Range: 0-0 META 0 [...] Labs/Procedures/Imaging* CBC w/ Auto Diff 7150; Done: 07Nov2016 10:46AM Instructions Name Dates Details [...] Problem not documented On 12-Apr-2016 10:30 Appointment; Araon Roy M.D. Encounter Diagnosis: Problem not documented [...]
--- OUTSIDE RECORDS SUMMARY | 2016-12-11 10:06 | XMS REPORT | Referral Summary ---
Author Author [facility] Organization [facility] Address Unknown Phone Unavailable Care Team Providers Care Switchboard Mechanic Name Role Phone Lupillo Esparza Primary Care Physician Unavailable Encounter [facility] [id number] Date(s): 05/19/15 - 05/19/15 [facility] [address] [place] [address] JAY Molina [address] Discharge Diagnosis: Pulmonary hypertension Discharge Diagnosis: Aortic [...] DAILY, # 100 tabs, 3 Refill(s), eRx: [facility], TAKE ONE-HALF TABLET BY MOUTH TWICE DAILY Start Date: 07/07/15 Status: Ordered multivitamin 1 tabs, Oral, Daily Start Date: 07/01/14 Status: Ordered pravastatin 10 mg oral tablet See Instructions, TAKE ONE TABLET BY MOUTH ONCE DAILY, # 90 tabs, eRx: [facility], TAKE ONE TABLET [...] R acetabular fx1 10/08/08 S/P colonoscopy2 08/16/07 [facility] - Acc 10/07/08 rec 2WNL; repeat [...]
--- OUTSIDE RECORDS SUMMARY | 2016-12-11 10:06 | XMS REPORT | Referral Summary ---
Author Author [facility] Organization [facility] Address Unknown Phone Unavailable Care Team Providers Care Investigator Internal Affairs Name Role Phone Lupillo Esparza Primary Care Physician Unavailable Encounter [facility] [id number] Date(s): 09/20/15 - 09/20/15 [facility] [address] [place], [place] [address] Discharge Disposition: 01-Home or Self Care Attending [...] DAILY, # 100 tabs, 3 Refill(s), eRx: [facility], TAKE ONE-HALF TABLET BY MOUTH TWICE DAILY Start Date: 07/07/15 Status: Ordered multivitamin 1 tabs, Oral, Daily Start Date: 07/01/14 Status: Ordered pravastatin 10 mg oral tablet See Instructions, TAKE ONE TABLET BY MOUTH ONCE DAILY, # 90 tabs, 1 Refill(s), eRx: [facility], TAKE ONE TABLET [...]
--- OUTSIDE RECORDS SUMMARY | 2016-12-11 10:06 | XMS REPORT | Referral Summary ---
Author Author [facility] Organization [facility] Address Unknown Phone Unavailable Care Team Providers Care Frame Nailer Name Role Phone Chaim Roy Primary Care Physician [phone] Encounter [facility] Date(s): 06/21/16 - 06/21/16 [facility] [address] [place] [address] JAY Molina [id number] Discharge Diagnosis: Thrombocytopenia Discharge Diagnosis: Aortic valve replaced Discharge Diagnosis: Prostate cancer Discharge Diagnosis: Pulmonary hypertension Discharge Disposition: 01-Home or Self Care Attending Physician: Mahesh Parikh MD Referring Physician: Pepe Esparza Vital Signs Most recent to 1 oldest [Reference Range]: Peripheral Pulse 64 bpm Rate [60-100 bpm] (06/21/16 11:42 AM) Blood Pressure 92/46 mmHg [90-140/60-90 mmHg] (06/21/16 11:42 AM) Problem List Condition Effective Dates Status [...] DAILY, # 100 tabs, 3 Refill(s), eRx: [facility], TAKE ONE-HALF TABLET BY MOUTH TWICE DAILY Start Date: 07/07/15 Status: Ordered multivitamin 1 tabs, Oral, Daily Start Date: 07/01/14 Status: Ordered pravastatin 10 mg oral tablet See Instructions, TAKE ONE TABLET BY MOUTH ONCE DAILY, # 90 tabs, 1 Refill(s), eRx: [facility], TAKE ONE [...] surgical case 2auto-populated from documented surgical case [facility] 10/07/08 rec 4WNL; repeat 10 years Social History Social History Type Response Smoking Status Never smoker Assessment and Plan Extracted from: Title: Office Visit Note Author: Mahesh Parikh MD Date: 06/21/16 Assessment/Plan 1.Aortic valve replaced 2.Thrombocytopenia 3.Prostate cancer 4.Pulmonary hypertension Discussion: Clearly this man is deteriorating rather markedly. Weactive listened regarding his symptomsand his conditions. We encouraged the patient and his to do some reflecting about end-of-life issues. It is clear that this man's outlookis very adverse at this point. He is to see us again in 6 monthsbut I think that his survival may be more limited than that.
--- OUTSIDE RECORDS SUMMARY | 2016-12-11 10:06 | XMS REPORT | Summary of Care ---
Author Author Manuela Morrison, Donis Organization Unknown Address Unknown Phone Unavailable Care Team Providers Care Liability Claims Manager Name Role Phone Yudi Yarbrough Unavailable Hannah [...] TWICE DAILY. Quantity: 60 * Start Active [place] Thyroid 60 MG Oral Tablet TAKE TWO [...] Wafer Take 2 daily * Refills: 0 [place] M.DDonis Collins * Start 11-Jan-2016 Active Pantoprazole Sodium 40 MG Oral Tablet Delayed Release TAKE 1 TABLET BY MOUTH DAILY * Quantity: 30 Refills: 11 [place] M.D., Donis * Start 18-Aug-2016 Active Imodium A-D 2 MG Oral Tablet TAKE 2 TABLETS INITIALLY, FOLLOWED BY 1 TABLET AFTER EACH LOOSE BOWEL MOVEMENT. DO NOT EXCEED 8 TABLETS/DAY. * Refills: 0 [place] M.D., Donis * Start 18-Aug-2016 Active Acetaminophen 325 MG Oral Tablet Take 2 tabs po every 4 hours PRN * Refills: 0 Manuela M.DDonis Collins * Start 18-Aug-2016 Active Lidocaine HCl - 2 % External Gel Apply QID PRN * Quantity: 1 Refills: 2 Manuela M.D., Donis * Start 09-Oct-2016 Active 30 ML Tube Supplies Resmed S10 AirCurve 20/15 cm H2O, Permanent use, 327.23, Heated humidity, mask, headgear, filters, heated tubing, water chamber, chinstrap * Quantity: 1 Refills: 0 Andres P.A., Yudi * Start 03-May-2016 Active Supplies Auto CPAP 8-12 cm H2O [...] ML Intramuscular Suspension Prefilled Syringe Lot #: [id number] on: 18-Jul-2016 Family History Name Dates Details [...]
--- OUTSIDE RECORDS SUMMARY | 2016-12-11 10:06 | XMS REPORT | Summary of Care ---
Author Author Manuela Morrison, Donis Organization Unknown Address Unknown Phone Unavailable Care Team Providers Care Senior Environmental Scientist Name Role Phone Yudi Yarbrough Unavailable Unavailable [...] DAILY. Griffin Winn M.D. * Start Active [place] Thyroid 60 MG Oral Tablet Take 2 tab daily alternating with 2 1/2 tab every other day * Quantity: 180 Refills: 0 [place] M.D., Donis * Start Active Pravastatin Sodium [...] TAKE 1 TABLET DAILY. * Refills: 0 [place] M.D., Donis * Start 11-Jan-2016 Active Eliquis 5 MG Oral Tablet Take twice daily * Quantity: 60 Refills: 6 [place] M.D., Donis * Start 11-Jan-2016 Active Lasix 20 MG Oral Tablet TAKE 1 TABLET DAILY. * Refills: 0 [place] M.D., Donis * Start 11-Jan-2016 Active Calcium Carbonate 500 (200 Ca) MG Oral Wafer Take 1 daily * Refills: 0 Manuela M.D., Donis * Start 11-Jan-2016 Active Vitamin B Complex Oral Tablet TAKE 1 TABLET DAILY. * Refills: 0 [place] M.D., Donis * Start 11-Jan-2016 Active Vitamin C 500 MG Oral Tablet Chewable CHEW AND SWALLOW 1 TABLET DAILY. * Refills: 0 Manuela M.D., Donis * Start 11-Jan-2016 Active Saw [place] Oral Capsule TAKE 1 CAPSULE DAILY. * [...] History of Hip Repair History of Colonoscopy Comprehensive Metabolic Panel 1212 Ordered: BNP 3103 Ordered: THYROID STIM. HORMONE 3602 Ordered: Triiodothyronine,Free,Serum ( T3) [id number] Ordered: FREE T4 3604 Ordered: Immunization Name Dates Details Immunizations not [...] BP Systolic 118 mm[Hg] Status: Comments: Location: E; Position: Sitting BP Diastolic 82 mm[Hg] Status: [...] 07 Mar 2016 * Triiodothyronine,Free,Serum ( T3) [id number]; To be Done: 07 Mar 2016 Instructions [...]
--- OUTSIDE RECORDS SUMMARY | 2016-12-11 10:06 | XMS REPORT | Summary of Care ---
Author Author Manuela Morrison, Donis Organization Unknown Address Unknown Phone Unavailable Care Team Providers Care Supervisor Hardboard Name Role Phone Yudi Yarbrough Unavailable Hannah [...] TWICE DAILY. Quantity: 60 * Start Active [place] Thyroid 60 MG Oral Tablet TAKE TWO [...] twice daily * Quantity: 60 Refills: 6 [place] CityDonis leon M.D. * Start 11-Jan-2016 Active Furosemide [...] of Esophagogastroduodenoscopy URIC ACID 1155 Ordered: 24-Jul-2016 BASIC METABOLIC PROFILE 1210 Ordered: 22-Aug-2016 URIC ACID 1155 Ordered: 22-Aug-2016 Vitamin D, 25 - Hydroxy 3111 Ordered: 22-Aug-2016 Immunization Name Dates Details Fluzone High-Dose SUSP on: 18-Jul-2016 Fluzone High-Dose 0.5 ML Intramuscular Suspension Prefilled Syringe Lot #: [id number] on: 18-Jul-2016 Family History Name Dates Details [...] Interventions Provided Labs/Procedures/Imaging* BASIC METABOLIC PROFILE 1210; To be Done: 22 Aug 2016 * URIC ACID 1155; To be Done: 22 Aug 2016 * Vitamin D, 25 - Hydroxy 3111; To be Done: 22 Aug 2016 Instructions Name Dates Details Instructions not [...]
--- OUTSIDE RECORDS SUMMARY | 2016-12-11 10:07 | XMS REPORT | Summary of Care ---
Author Author Yudi Yarbrough Organization Unknown Address [address] [place], [place] [phone] Phone Unavailable Care Team Providers Care Computer Aided Design Drafter Name Role Phone Yudi Yarbrough Unavailable Unavailable [...] TWICE DAILY. Quantity: 60 * Start Active [place] Thyroid 60 MG Oral Tablet TAKE TWO [...] as needed * Quantity: 60 Refills: 3 [place] M.D., Donis * Start 11-Jan-2016 Active Calcium Carbonate 500 (200 Ca) MG Oral Wafer Take 2 daily * Refills: 0 [place] M.D., Donis * Start 11-Jan-2016 Active Supplies [...] EXCEED 8 TABLETS/DAY. * Refills: 0 Manuela M.D.Donis * Start 18-Aug-2016 Active Acetaminophen 325 MG Oral Tablet Take 2 tabs po every 4 hours PRN * Refills: 0 [place] M.D.Donis * Start 18-Aug-2016 Active Allergies and [...] ML Intramuscular Suspension Prefilled Syringe Lot #: [id number] on: 18-Jul-2016 Family History Name Dates Details [...] low threshold) Range: >60 EST GFR, NON-AFR [place] 48 ml/min (Below low threshold) Range: >60 [...]
--- OUTSIDE RECORDS SUMMARY | 2016-12-11 10:07 | XMS REPORT | Referral Summary ---
Author Author [facility] Organization [facility] Address Unknown Phone Unavailable Care Team Providers Care Auto Parts Delivery Driver Name Role Phone Joe Ryo Primary Care Physician [phone] Encounter [facility] [id number] Date(s): 01/11/15 - 01/11/15 [facility] [address] [place], [place] [address] Discharge Diagnosis: Capillary hemangioma Discharge Diagnosis: [...] DAILY, # 100 tabs, 3 Refill(s), eRx: [facility], TAKE ONE-HALF TABLET BY MOUTH TWICE DAILY Start Date: 07/07/15 Status: Ordered multivitamin 1 tabs, Oral, Daily Start Date: 07/01/14 Status: Ordered pravastatin 10 mg oral tablet See Instructions, TAKE ONE TABLET BY MOUTH ONCE DAILY, # 90 tabs, 1 Refill(s), eRx: [facility], TAKE ONE TABLET BY MOUTH [...] R acetabular fx1 10/08/08 S/P colonoscopy2 08/16/07 [facility] - Acc 10/07/08 rec 2WNL; repeat 10 years Social History Social History Type Response Smoking Status Never smoker Assessment and Plan Extracted from: Title: Office Visit Note Author: Ariel Vizcarra MD Date: 01/11/15 Assessment/Plan 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
--- OUTSIDE RECORDS SUMMARY | 2016-12-11 10:07 | XMS REPORT | Summary of Care ---
Author Author Manuela Morrison, Donis Organization Unknown Address Unknown Phone Unavailable Care Team Providers Care Dehydrogenation Operator Name Role Phone Yudi Yarbrough Unavailable Unavailable [...] DAILY. Griffin Winn M.D. * Start Active [place] Thyroid 60 MG Oral Tablet Take 2 tab daily alternating with 2 1/2 tab every other day * Quantity: 180 Refills: 0 [place] M.D., Donis * Start Active Pravastatin Sodium [...] TAKE 1 TABLET DAILY. * Refills: 0 [place] M.D., Donis * Start 11-Jan-2016 Active Eliquis 5 MG Oral Tablet Take twice daily * Quantity: 60 Refills: 6 [place] M.D., Donis * Start 11-Jan-2016 Active Lasix 20 MG Oral Tablet TAKE 1 TABLET DAILY. * Refills: 0 [place] M.D., Donis * Start 11-Jan-2016 Active Calcium Carbonate 500 (200 Ca) MG Oral Wafer Take 1 daily * Refills: 0 Manuela M.D., Donis * Start 11-Jan-2016 Active Vitamin B Complex Oral Tablet TAKE 1 TABLET DAILY. * Refills: 0 [place] M.D., Donis * Start 11-Jan-2016 Active Vitamin C 500 MG Oral Tablet Chewable CHEW AND SWALLOW 1 TABLET DAILY. * Refills: 0 Maunela M.D., Donis * Start 11-Jan-2016 Active Saw [place] Oral Capsule TAKE 1 CAPSULE DAILY. * [...] STIM. HORMONE 3602 Ordered: Triiodothyronine,Free,Serum ( T3) [id number] Ordered: FREE T4 3604 Ordered: D - [...] 07 Mar 2016 * Triiodothyronine,Free,Serum ( T3) [id number]; To be Done: 07 Mar 2016 Instructions [...]
--- OUTSIDE RECORDS SUMMARY | 2016-12-11 10:07 | XMS REPORT | Summary of Care ---
Author Author Griffin Winn M.D. Organization Unknown Address [address] [place], [place] [phone] Phone Unavailable Care Team Providers Care Filler Shredding Machine Loader Name Role Phone Tatum Morrison, O Unavailable [...]
--- OUTSIDE RECORDS SUMMARY | 2016-12-11 10:07 | XMS REPORT | Summary of Care ---
Author Author Griffin Winn M.D. Organization Unknown Address [address] [place] [phone] Phone Unavailable Care Team Providers Care Supervisor Shuttle Veneering Name Role Phone Pepe Esparza PP Unavailable [...] Status: Procedures Procedure Dates Details ECG/ EKG Ordered: Comprehensive Metabolic Panel 1212 Ordered: THYROID STIM. [...]
--- OUTSIDE RECORDS SUMMARY | 2016-12-11 10:07 | XMS REPORT | Summary of Care ---
Author Author Oneyda Francisco Unknown Address [address] [place] [address] Phone Unavailable Care Team Providers Care Patient Relations Director Name Role Phone Donis Roy M.D. Unavailable [...] 0 Donis Roy M.D.* Started 11-Jan-2016 ActiveSaw [place] Oral Capsule TAKE 1 CAPSULE DAILY. * [...] (Better) Range: 0.80-1.67 08:39 Triiodothyronine,Free,Serum ( T3) [id number] Comments: Testing performed at: [DA] [facility], [address] [place] [address] [address], [place], [address], , Consumer Loan Manager: RAND Ashley MD TRIIODOTHYRONINE,FREE,SERUM 5.3 pg/mL (Above [...]
--- OUTSIDE RECORDS SUMMARY | 2016-12-11 10:07 | XMS REPORT | Summary of Care ---
Author Author Manuela Morrison, Donis Organization Unknown Address Unknown Phone Unavailable Care Team Providers Care Gym Teacher Name Role Phone Yudi Yarbrough Unavailable Hannah [...] DAILY. Griffin Winn M.D. * Start Active [place] Thyroid 60 MG Oral Tablet TAKE TWO [...] twice daily * Quantity: 60 Refills: 6 AlconaDonis leon M.D. * Start 11-Jan-2016 Active Furosemide 20 MG Oral Tablet Take 1-2 tabs po q day as needed * Quantity: 60 Refills: 3 AlconaDonis leon M.D. * Start 11-Jan-2016 Active Calcium [...] Manuela M.D.Donis * Start 11-Jan-2016 Active Saw [place] Oral Capsule TAKE 1 CAPSULE DAILY. * Refills: 0 [place] M.D., Donis * Start 11-Jan-2016 Active Supplies [...] 5 days * Quantity: 5 Refills: 0 [place] M.D., Donis * Start 24-Jul-2016 Active Colchicine 0.6 MG Oral Tablet 2 tabs now then 1 daily X 3 months * Quantity: 90 Refills: 0 Alcon[place] M.D.Donis * Start 24-Jul-2016 Active Allergies and Adverse [...] of Pacemaker Placement URIC ACID 1155 Ordered: 24-Jul-2016 Immunization Name Dates Details Fluzone High-Dose SUSP on: 18-Jul-2016 Fluzone High-Dose 0.5 ML Intramuscular Suspension Prefilled Syringe Lot #: [id number] on: 18-Jul-2016 Family History Name Dates Details [...] BP Systolic 110 mm[Hg] Status: Comments: Location: ; Position: BP Diastolic 68 mm[Hg] Status: Comments: Location: ; Position: Temperature 98.8 f Status: Heart Rate 73 /min Status: Comments: Location: ; Weight 138 lb Status: Physical Findings 98 Status: Comments: O2 Saturation Body Mass Index Calculated 22.27 kg/m2 Status: Body Surface Area Calculated 1.71 m2 Status: 12-Jul-2016 13:26 BP Systolic 120 mm[Hg] Status: Comments: Location: RUE; Position: Sitting BP Diastolic 78 mm[Hg] Status: Comments: Location: RUE; Position: Sitting Heart Rate 76 /min Status: Comments: Location: ; Weight 135 lb Status: Physical Findings 98 Status: Comments: O2 Saturation Body Mass Index Calculated 21.79 kg/m2 Status: Body Surface Area Calculated 1.69 m2 Status: Results Date Description Value Details 27-Jun-2016 15:07 CBC w/ Manual Diff 7225 Comments: ORDER IN BOOK UNDER JUNE WBC 4.7 K/uL Range: 4.5-11.0 RBC 2.98 mil/uL (Below low threshold) Range: 4.20-5.40 HGB 9.7 g/dL (Below low threshold) Range: 14.0-18.0 HCT 27.5 % (Below low threshold) Range: 42.0-53.0 MCV 92.0 fL Range: 80.0-99.0 MCH 32.4 pg Range: 27.3-32.5 MCHC 35.2 % Range: 32.0-36.0 RDW 20.5 % (Above high threshold) Range: 11.6-14.8 PLATELETS 40 K/uL (Below low threshold) Range: 150-400 MPV 7.9 fL Range: 6.0-11.0 NEUTRO 3.6 K/uL Range: 2.0-6.9 SEGS 81 % (Above high threshold) Range: 37-80 BANDS 1 % Range: 0-7 LYMPH 13 % Range: 13-50 MONO 3 % Range: 0-12 EOSIN 1 % Range: 0-7 BASO 1 % Range: 0-3 OFE LYMPH 0 % Range: 0-0 META 0 % Range: 0-0 MYELO 0 % Range: 0-0 PRO 0 % Range: 0-0 BLAST 0 % Range: 0-0 NUC RBC 0 /100 WBC Range: 0-0 SMUDGE 0 /100 WBC PLATELET Decreased (Abnormal) Range: Adequate ANISO Mod MACROCYT Slight POLYCHRO Slight OVAL Present 04-Jul-2016 14:33 CBC w/ Manual Diff 7225 Comments: ORDER IN BOOK UNDER JUNE WBC 5.2 K/uL Range: 4.5-11.0 RBC 3.21 mil/uL (Below low threshold) Range: 4.20-5.40 HGB 10.3 g/dL (Below low threshold) Range: 14.0-18.0 HCT 29.2 % (Below low threshold) Range: 42.0-53.0 MCV 91.1 fL Range: 80.0-99.0 MCH 32.2 pg Range: 27.3-32.5 MCHC 35.3 % Range: 32.0-36.0 RDW 20.2 % (Above high threshold) Range: 11.6-14.8 PLATELETS 48 K/uL (Below low threshold) Range: 150-400 MPV 8.6 fL Range: 6.0-11.0 NEUTRO 4.3 K/uL Range: 2.0-6.9 SEGS 71 % Range: 37-80 BANDS 1 % Range: 0-7 LYMPH 15 % Range: 13-50 MONO 7 % Range: 0-12 EOSIN 4 % Range: 0-7 BASO 1 % Range: 0-3 OFE LYMPH 0 % Range: 0-0 META 1 % (Above high threshold) Range: 0-0 MYELO 0 % Range: 0-0 PRO 0 % Range: 0-0 BLAST 0 % Range: 0-0 NUC RBC 0 /100 WBC Range: 0-0 SMUDGE 0 /100 WBC PLATELET Decreased (Abnormal) Range: Adequate ANISO Marked HYPOCHRO Slight OVAL Present TEAR Present 11-Jul-2016 14:52 CBC w/ Manual Diff 7225 Comments: ORDER IN BOOK UNDER JUNE WBC 4.8 K/uL Range: 4.5-11.0 RBC 3.24 mil/uL (Below low threshold) Range: 4.20-5.40 HGB 10.2 g/dL (Below low threshold) Range: 14.0-18.0 HCT 29.6 % (Below low threshold) Range: 42.0-53.0 MCV 91.3 fL Range: 80.0-99.0 MCH 31.4 pg Range: 27.3-32.5 MCHC 34.3 % Range: 32.0-36.0 RDW 19.7 % (Above high threshold) Range: 11.6-14.8 PLATELETS 39 K/uL (Below low threshold) Range: 150-400 MPV 8.4 fL Range: 6.0-11.0 NEUTRO 4.0 K/uL Range: 2.0-6.9 SEGS 75 % Range: 37-80 BANDS 3 % Range: 0-7 LYMPH 12 % (Below low threshold) Range: 13-50 MONO 5 % Range: 0-12 EOSIN 4 % Range: 0-7 BASO 1 % Range: 0-3 OFE LYMPH 0 % Range: 0-0 META 0 % Range: 0-0 MYELO 0 % Range: 0-0 PRO 0 % Range: 0-0 BLAST 0 % Range: 0-0 NUC RBC 0 /100 WBC Range: 0-0 SMUDGE 0 /100 WBC PLATELET Decreased (Abnormal) Range: Adequate ANISO Mod MACROCYT Slight POLYCHRO Slight OVAL Present 18-Jul-2016 14:42 CBC w/ Manual Diff 7225 [...] Adequate ANISO Mod MACROCYT Slight OVAL Present Plan of Care Name Dates Details Planned Observations URIC ACID 1155 On 04-Sep-2016 Intent Planned Goals not documented Planned Encounters Appointment; Provider: Ivone Baer On 10-Aug-2016 14:00 Interventions Provided Medication Changes* Colchicine 0.6 MG [...]
--- OUTSIDE RECORDS SUMMARY | 2016-12-11 10:08 | XMS REPORT ---
Author Author Eden Pyle Organization [employer] Address Unknown Phone Unavailable Care Team Providers Care Pharmacy Intake Technician Name Role Phone Eden Pyle CP [...]
--- OUTSIDE RECORDS SUMMARY | 2016-12-11 10:08 | XMS REPORT | Referral Summary ---
Author Author [facility] Organization [facility] Address Unknown Phone Unavailable Care Team Providers Care Upholsterer Outside Name Role Phone Lupillo Esparza Primary Care Physician Unavailable Encounter [facility] [id number] Date(s): 12/06/15 - 12/06/15 [facility] [address] [place], [place] [address] Discharge Diagnosis: H/O aortic valve replacement Discharge Diagnosis: Diastolic dysfunction Discharge Diagnosis: Pulmonary hypertension Discharge Diagnosis: Atrial fibrillation Discharge Diagnosis: Cardiac pacemaker Discharge Disposition: 01-Home or Self Care Attending Physician: Mahesh Parikh MD Admitting Physician: Mahesh Parikh MD Referring Physician: Aaron Roy MD Vital Signs Most recent to 1 oldest [Reference Range]: Peripheral Pulse 56 bpm Rate [60-100 bpm] *LOW* (12/06/15 2:12 PM) Blood Pressure 90/46 mmHg [90-140/60-90 mmHg] (12/06/15 2:12 PM) Problem List Condition Effective Dates Status [...] DAILY, # 100 tabs, 3 Refill(s), eRx: [facility], TAKE ONE-HALF TABLET BY MOUTH TWICE DAILY Start Date: 07/07/15 Status: Ordered multivitamin 1 tabs, Oral, Daily Start Date: 07/01/14 Status: Ordered pravastatin 10 mg oral tablet See Instructions, TAKE ONE TABLET BY MOUTH ONCE DAILY, # 90 tabs, eRx: [facility], TAKE ONE TABLET [...] R acetabular fx1 10/08/08 S/P colonoscopy2 08/16/07 [facility] - Acc 10/07/08 rec 2WNL; repeat 10 years Social History Social History Type Response Smoking Status Never smoker Assessment and Plan Extracted from: Title: Office Visit Note Author: Mahesh Parikh MD Date: 12/06/15 Assessment/Plan 1.H/O aortic valve replacement 2.Pulmonary hypertension 3.Atrial fibrillation 4.Cardiac pacemaker 5.Diastolic dysfunction The echocardiogram demonstrates that his systolic function is well-preserved. He has findings that are consistent with right ventricular pressure overload. The pulmonary artery systolic pressure is markedly increased and severe tricuspid insufficiency is noted. The aortic valve hasonly a mild gradient. His pulmonary hypertension could be related to diastolic dysfunctionorit could be related tomultiple processes. The patient has been advised to undergoa right heart catheterization and I think thatit's reasonable to do that procedure. The patient, on the other hand,seems to have a sense ofwithdrawing from intensecare procedures. Heseems to be"failing" At this point he prefers not to have procedures. He will continue his same medication and follow-up again in 6 months.
--- OUTSIDE RECORDS SUMMARY | 2016-12-11 10:08 | XMS REPORT | Summary of Care ---
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 Griffin Winn M.D. * Start Active [place] Thyroid 60 MG Oral Tablet Take 2 tab daily alternating with 2 1/2 tab every other day * Quantity: 180 Refills: 0 [place] M.D., Donis * Start Active Pravastatin Sodium [...] TAKE 1 TABLET DAILY. * Refills: 0 [place] M.D., Donis * Start 11-Jan-2016 Active Eliquis 5 MG Oral Tablet Take twice daily * Quantity: 60 Refills: 6 [place] M.D., Donis * Start 11-Jan-2016 Active Lasix 40 MG Oral Tablet TAKE 1 TABLET DAILY. * Quantity: 30 Refills: 6 Manuela M.D., Donis * Start [...] SWALLOW 1 TABLET DAILY. * Refills: 0 [place] M.D., Donis * Start 11-Jan-2016 Active Saw [place] Oral Capsule TAKE 1 CAPSULE DAILY. * Refills: 0 [place] M.D., Donis * Start 11-Jan-2016 Active Supplies [...] Details History of Hernia Repair History of Hip Repair History of Heart Valve Replacement History of Pacemaker Placement History of Colonoscopy Procedures not documented Immunization [...] >60 ml/min Range: >60 EST GFR, NON-AFR [place] 56 ml/min (Below low threshold) Range: >60 Comments: EST GFR is reported in ml/min per 1.73 m2 of body surface area. For -[place]ots[place]an, please multiple result by 1.2.----- GLUCOSE 97 [...] ng/dL Range: 0.80-1.67 13:11 Triiodothyronine,Free,Serum ( T3) [id number] Comments: Testing performed at: [DA] [facility], [address] [place] [address] [address], [place], [address], , Business Economist: RAND Ashley MD TRIIODOTHYRONINE,FREE,SERUM 3.9 pg/mL Range: 2.0-4.4 Plan of Care Name Dates Details Planned [...]
--- OUTSIDE RECORDS SUMMARY | 2016-12-11 10:08 | XMS REPORT | Continuity of Care Document ---
Author Author [facility] Address Unknown Phone Unavailable Care Team Providers Care Cashier Ticket Selling Name Role Phone GARRETT, MARY LOU Rucker MD Primary Care Physician [phone] Insurance Providers Payer Name Policy Number Subscriber Name Relationship Medicare A And B [id number] Delon Sierra 18 Self / Same As Patient Other1 [id number] Delon Sierra 18 Self / Same As Patient Advance Directives Directive Response Recorded Date/Time Advanced Directives Unknown 09/18/16 2:43pm Type Durable Power of Tele Marketing Executive 09/18/16 2:43pm Type Living Will 09/18/16 2:43pm Chief Complaint and Reason for Visit Chief Complaint Respiratory Complaint Reason for Visit Headache Anemia Dyspnea Pleural effusion Pulmonary edema Thrombocytopenia Problems Active Problems Medical Problem Onset Date [...] discharge instructions. Plan of Care Discharge Date 09/18/16 5:32pm Disposition 01 HOME OR SELF-CARE Condition at Discharge Stable Instructions/Education Provided Heart Failure, Adult Pulmonary Hypertension in Adults Headache, Adult (DC) Prescriptions See Medication Section Referrals MARY LOU TUCKER MD - Additional Instructions/Education Your CAT scan of your head did not show any signs of an aneurysm stroke or brain tumor. The discomfort on your right jew area may be from a tension headache, or you may be developing something else. If you develop blisters in the skin, this could be shingles, you should see your doctor. Your chest x-ray showed some continued fluid in the lungs with pulmonary edema and pleural effusions, about the same as before. This will make you short of breath particularly with activity. You need to continue taking furosemide 120 mg a day as prescribed. Your platelet count has come up to 58,000, so you may resume your Eliquis. Some of your test results may not [...] worrisome symptoms. * Emergency Department phone number: [phone], x [phone]* MEDICAL RECORD If you need copies of your X-rays, call [phone] x [phone]. If you need copies of [...] the billing parties for services. SERVICE [employer]ILLING [employer] Emergency Room Services [facility] Physician Services [facility] X-rays [facility] Patients will receive bills for services from the appropriate provider. If you have any questions about your [facility] bill, our staff will be happy to assist you. Please call [phone], and ask for the billing department. THANK YOU for choosing [facility] as your emergency care provider! Care Plan and Goals ~~Discharge Care Plan~~ Problem: Headache Goal: Decreased level of pain. Return to usual activities. Instructions: Take medication(s) as directed; follow up with primary care physician as directed; follow patient home care instructions. Home to rest in a quiet dark room. Functional Status No functional status results. Allergies, Adverse Reactions, Alerts No known allergies. Immunizations No immunization records. Vital Signs Acute Vital Signs Vital Response Date/Time Temperature (Fahrenheit) 97.8 09/18/2016 6:01pm Pulse 83 bpm 09/18/2016 6:01pm Respirations 18 09/18/2016 6:01pm Height 5 ft 8 in Weight 140 lb Body Mass Index 21.0 kg/m^2 Results Laboratory Results Test Name Result Units Flags Reference Collection Date/Time Result Date/ Time Comments White Blood Count 7.60 10^3uL 4.0-11.0 09/05/2016 4:30pm 09/05/2016 5: 29pm Red Blood Count 2.66 10^6uL L 4.50-5.50 09/05/2016 4:30pm 09/05/2016 5: 29pm Hemoglobin 8.6 g/dL L 13.5-17.0 09/05/2016 4:30pm 09/05/2016 5:29pm Hematocrit 25.90 % L 39.00-50.00 09/05/2016 4:30pm 09/05/2016 5:29pm Mean Corpuscular Volume 97 FL 80-100 09/05/2016 4:30pm 09/05/2016 5: 29pm Mean Corpuscular Hemoglobin 32.3 PG 26.0-34.0 09/05/2016 4:30pm 2016 5:29pm Mean Corpuscular Hemoglobin Concent 33.2 g/dL 31.0-37.0 09/05/2016 4: 30pm 09/05/2016 5:29pm Red Cell Distribution Width 22.3 % H 11.8-15.6 09/05/2016 4:30pm 2016 5:29pm Platelet Count 38 10^3uL L 150-450 09/05/2016 4:30pm 09/05/2016 5:29pm Differential Total Cells Counted 100 09/05/2016 4:30pm 09/05/2016 5 :38pm Segmented Neutrophils % 79 % H 51-67 09/05/2016 4:30pm 09/05/2016 5: 38pm Band Neutrophils % 3 % 0-6 09/05/2016 4:30pm 09/05/2016 5:38pm Lymphocytes % (Manual) 12 % L 20-46 09/05/2016 4:30pm 09/05/2016 5:38pm Monocytes % (Manual) 3 % 3-11 09/05/2016 4:30pm 09/05/2016 5:38pm Eosinophils % (Manual) 3 % 0-4 09/05/2016 4:30pm 09/05/2016 5:38pm Basophils % (Manual) 0 % 0-2 09/05/2016 4:30pm 09/05/2016 5:38pm Neutrophils # 6.0 # 09/05/2016 4:30pm 09/05/2016 5:38pm Absolute Band Neutrophils 0.2 # 09/05/2016 4:30pm 09/05/2016 5:38pm Lymphocytes # 0.9 # 09/05/2016 4:30pm 09/05/2016 5:38pm Monocytes # 0.2 # 09/05/2016 4:30pm 09/05/2016 5:38pm Eosinophils # 0.2 # 09/05/2016 4:30pm 09/05/2016 5:38pm Basophils # (Manual) 0.0 # 09/05/2016 4:30pm 09/05/2016 5:38pm Blood Morphology Comment SEE REFERENCE NORMAL 09/05/2016 4:30pm 09/05 5:38pm Polychromasia SLIGHT 09/05/2016 4:30pm 09/05/2016 5:38pm Anisocytosis SLIGHT 09/05/2016 4:30pm 09/05/2016 5:38pm Pending Laboratory Results Test Name Collection Date/Time Procedures Procedure Status Date Provider(s) BL SMEAR W/DIFF WBC COUNT Completed 09/05/16 COMPLETE CBC AUTOMATED Completed 09/05/16 Encounters Encounter Location Arrival/Admit Date Discharge/Depart Date Attending Provider Departed Emergency Room [facility] 09/18/16 2:31pm 09/18/16 5:32pm FARIDA STONE DO Registered Referred [facility] 09/05/16 4:26pm MARY LOU TUCKER MD Recent Diagnosis
--- OUTSIDE RECORDS SUMMARY | 2016-12-11 10:08 | XMS REPORT | Summary of Care ---
Author Author Manuela Morrison, Donis Organization Unknown Address Unknown Phone Unavailable Care Team Providers Care Wafer Polishing Lead Worker Name Role Phone Yudi Yarbrough Unavailable Hannah [...] TWICE DAILY. Quantity: 60 * Start Active [place] Thyroid 60 MG Oral Tablet TAKE TWO [...] Start 09-Oct-2016 Active 30 ML Tube Nystatin 365984 UNIT/ML Mouth/Throat Suspension SWISH AND SWALLOW 5ML [...] ML Intramuscular Suspension Prefilled Syringe Lot #: [id number] on: 18-Jul-2016 Family History Name Dates Details [...] >60 ml/min Range: >60 EST GFR, NON-AFR IRISH 60 ml/min (Below low threshold) Range: >60 [...] >60 ml/min Range: >60 EST GFR, NON-AFR IRISH >60 ml/min Range: >60 Comments: EST GFR [...] Labs/Procedures/Imaging* CBC w/ Auto Diff 7150; Done: 30Oct2016 10:51AM Instructions Name Dates Details Instructions not documented [...]
--- OUTSIDE RECORDS SUMMARY | 2016-12-11 10:08 | XMS REPORT | Summary of Care ---
Author Author Manuela Morrison, Donis Organization Unknown Address Unknown Phone Unavailable Care Team Providers Care Securities Consultant Name Role Phone Yudi Yarbrough Unavailable Hannah [...] TWICE DAILY. Quantity: 60 * Start Active [place] Thyroid 60 MG Oral Tablet TAKE TWO [...] Start 09-Oct-2016 Active 30 ML Tube Nystatin 145036 UNIT/ML Mouth/Throat Suspension SWISH AND SWALLOW 5ML [...] ML Intramuscular Suspension Prefilled Syringe Lot #: [id number] on: 18-Jul-2016 Family History Name Dates Details [...] >60 ml/min Range: >60 EST GFR, NON-AFR [place] 60 ml/min (Below low threshold) Range: >60 [...] >60 ml/min Range: >60 EST GFR, NON-AFR [place] >60 ml/min Range: >60 Comments: EST GFR [...] On 07-Nov-2016 10:00 Interventions Provided Medication Changes* Furosemide 20 MG Oral Tablet - Renew Instructions Name Dates Details Instructions [...]
--- OUTSIDE RECORDS SUMMARY | 2016-12-11 10:09 | XMS REPORT ---
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 Active 932988006 Problem Hyperlipidemia 272.4 Active 00736202 Problem Hypertension 401.9 Active 49535467 Problem Atrial fibrillation I48.91 Active 66086782 Problem Presence of cardiac pacemaker Z95.0 Active 992980556 Problem Hyperlipidemia, unspecified E78.5 Active 41115398 Problem Fatigue 780.79 Active 87955363 Problem 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
--- OUTSIDE RECORDS SUMMARY | 2016-12-11 10:09 | XMS REPORT | Summary of Care ---
Author Author Manuela Morrison, Donis Organization Unknown Address Unknown Phone Unavailable Care Team Providers Care Client Service Representative Name Role Phone Yudi Yarbrough Unavailable Unavailable [...] DAILY. Griffin Winn M.D. * Start Active [place] Thyroid 60 MG Oral Tablet TAKE TWO AND ONE-HALF TABLETS BY MOUTH DAILY * Quantity: 180 Refills: 11 [place] M.D., Donis * Start 23-Mar-2016 Active Pravastatin [...] TABLET DAILY. * Quantity: 30 Refills: 6 [place] M.D., Donis * Start 11-Jan-2016 Active Calcium Carbonate 500 (200 Ca) MG Oral Wafer Take 1 daily * Refills: 0 [place] M.D., Donis * Start 11-Jan-2016 Active Vitamin B Complex Oral Tablet TAKE 1 TABLET DAILY. * Refills: 0 [place] M.D., Donis * Start 11-Jan-2016 Active Vitamin C 500 MG Oral Tablet Chewable CHEW AND SWALLOW 1 TABLET DAILY. * Refills: 0 [place] M.D., Donis * Start 11-Jan-2016 Active Saw [place] Oral Capsule TAKE 1 CAPSULE DAILY. * Refills: 0 [place] M.D., Donis * Start 11-Jan-2016 Active Supplies [...] >60 ml/min Range: >60 EST GFR, NON-AFR [place] 56 ml/min (Below low threshold) Range: >60 Comments: EST GFR is reported in ml/min per 1.73 m2 of body surface area. For -[place]an, please multiple result by 1.2.----- GLUCOSE 97 [...] ng/dL Range: 0.80-1.67 13:11 Triiodothyronine,Free,Serum ( T3) [id number] Comments: Testing performed at: [DA] [facility], [address] [place] [address], [place], [address], , Technology Officer: RAND Ashley MD TRIIODOTHYRONINE,FREE,SERUM 3.9 pg/mL Range: [...]
--- OUTSIDE RECORDS SUMMARY | 2016-12-11 10:09 | XMS REPORT ---
Author Author Eden Pyle Organization [employer] Address Unknown Phone Unavailable Care Team Providers Care Supreme Court Justice Name Role Phone Eden Pyle CP Unavailable [...]
--- OUTSIDE RECORDS SUMMARY | 2016-12-11 10:09 | XMS REPORT | Summary of Care ---
Author Author Donis Roy M.D. Organization Unknown Address [address], [place] [address] Phone Unavailable Care Team Providers Care Bricklayer Paving Brick Name Role Phone Donis Roy M.D. Unavailable [...] 0 Donis Roy M.D.* Started 11-Jan-2016 ActiveSaw [place] Oral Capsule TAKE 1 CAPSULE DAILY. * [...] Colonoscopy CBC w/ Auto Diff 7150 Ordered:11-Jan-2016 Immunization Name Dates Details Immunizations not [...] (Better) Range: 0.80-1.67 08:39 Triiodothyronine,Free,Serum ( T3) [id number] Comments: Testing performed at: [DA] [facility], [address], [place], [address], , [place] Customs And Border Officer: RAND Ashley MD TRIIODOTHYRONINE,FREE,SERUM 5.3 pg/mL (Above [...]
--- OUTSIDE RECORDS SUMMARY | 2016-12-11 10:09 | XMS REPORT | Referral Summary ---
Author Author [facility] Organization [facility] Address Unknown Phone Unavailable Care Team Providers Care Job Placement Specialist Name Role Phone Lupillo Esparza Primary Care Physician Unavailable Encounter [facility] [id number] Date(s): 09/14/15 - 09/14/15 [facility] [address] [place], [place] [address] Discharge Disposition: 01-Home or Self Care Attending [...] Procedures Procedure Date Related Diagnosis Body Site Adjacent tissue transfer or rearrangement, 09/14/15 eyelids, nose, ears and/or lips; defect 10.1 sq cm to 30.0 sq cm Excision, malignant lesion including margins, 09/14/15 face, ears, eyelids, nose, lips; excised diameter 2.[address] R acetabular fx1 10/08/08 S/P colonoscopy2 08/16/07 [facility] - Acc 10/07/08 rec 2WNL; repeat 10 years Social History Social History Type Response Smoking Status Never smoker Assessment and Plan No data available for this section
--- OUTSIDE RECORDS SUMMARY | 2016-12-11 10:09 | XMS REPORT | Referral Summary ---
Author Author [facility] Organization [facility] Address Unknown Phone Unavailable Care Team Providers Care Chainstitch Elastic Attacher Name Role Phone Joe Roy Primary Care Physician [phone] Encounter [facility] [id number] Date(s): 07/13/15 - 07/13/15 [facility] [address] [place], [place] 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 Discharge Disposition: 01-Home or Self Care Attending Physician: Ariel Vizcarra MD Admitting Physician: Ariel Vizcarra MD Referring Physician: Aaron Roy MD Vital Signs No data available [...] DAILY, # 100 tabs, 3 Refill(s), eRx: [facility], TAKE ONE-HALF TABLET BY MOUTH TWICE DAILY Start Date: 07/07/15 Status: Ordered multivitamin 1 tabs, Oral, Daily Start Date: 07/01/14 Status: Ordered pravastatin 10 mg oral tablet See Instructions, TAKE ONE TABLET BY MOUTH ONCE DAILY, # 90 tabs, 1 Refill(s), eRx: [facility], TAKE ONE TABLET [...] Diagnosis Body Site Destruction (eg, laser surgery, 07/13/15 electrosurgery, cryosurgery, chemosurgery, surgical curettement), premalignant lesions (eg, actinic keratoses); first lesion Destruction (eg, laser surgery, 07/13/15 electrosurgery, cryosurgery, chemosurgery, surgical curettement), premalignant lesions (eg, actinic keratoses); second through 14 lesions, each (List separately in addition to code for first lesion).. 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
--- OUTSIDE RECORDS SUMMARY | 2016-12-11 10:09 | XMS REPORT | Summary of Care ---
Author Author Griffin Winn M.D. Organization Unknown Address [address] [place] [phone] Phone Unavailable Care Team Providers Care Clean Out Driller Name Role Phone Yudi Yarbrough Unavailable Unavailable [...] DAILY. Griffin Winn M.D. * Start Active [place] Thyroid 60 MG Oral Tablet TAKE TWO [...] TABLET DAILY. * Quantity: 90 Refills: 3 MenomineeDonis leon M.D. * Start 11-Jan-2016 Active Allopurinol 300 MG Oral Tablet Take 1 1/2 tabs daily. * Quantity: 135 Refills: 3 Aaron Roy M.D. * Start 11-Jan-2016 Active Eliquis 5 MG Oral Tablet Take twice daily * Quantity: 60 Refills: 6 Manuela MDonis Mitchell * Start 11-Jan-2016 Active Furosemide 20 MG Oral Tablet Take 1-2 tabs po q day as needed * Quantity: 60 Refills: 3 [place] Donis Morrison * Start 11-Jan-2016 Active Calcium Carbonate 500 (200 Ca) MG Oral Wafer Take 1 daily * Refills: 0 Donis Roy M.D. * Start 11-Jan-2016 Active Vitamin B Complex Oral Tablet TAKE 1 TABLET DAILY. * Refills: 0 [place] MDennisD., Donis * Start 11-Jan-2016 Active Vitamin C 500 MG Oral Tablet Chewable CHEW AND SWALLOW 1 TABLET DAILY. * Refills: 0 Manuela M.D., Donis * Start 11-Jan-2016 Active Saw [place] Oral Capsule TAKE 1 CAPSULE DAILY. * Refills: 0 [place] M.D., Donis * Start 11-Jan-2016 Active Supplies [...] chamber, chinstrap * Quantity: 1 Refills: 0 Letick M.D., Griffin O * Start 03-May-2016 Active [...] History of Heart Valve Replacement History of Colonoscopy History of Pacemaker Placement [...] smoker Vital Signs Date Test Result Details 12-Jul-2016 13:26 BP Systolic 120 mm[Hg] Status: Comments: Location: ; Position: BP Diastolic 78 mm[Hg] Status: Comments: Location: ; Position: Heart Rate 76 /min Status: Comments: Location: ; Weight 135 lb Status: Physical Findings 98 Status: Comments: O2 Saturation Body Mass Index Calculated 21.79 kg/m2 Status: Body Surface Area Calculated 1.69 m2 Status: Results Date Description Value Details 13-Jun-2016 14:39 CBC w/ Manual Diff 7225 Comments: FILED UNDER NOV ORDERS IN THE BOOK WBC 4.5 K/uL Range: 4.5-11.0 RBC 3.13 mil/uL (Below low threshold) Range: 4.20-5.40 HGB 9.8 g/dL (Below low threshold) Range: 14.0-18.0 HCT 28.6 % (Below low threshold) Range: 42.0-53.0 MCV 91.5 fL Range: 80.0-99.0 MCH 31.3 pg Range: 27.3-32.5 MCHC 34.2 % Range: 32.0-36.0 RDW 19.9 % (Above high threshold) Range: 11.6-14.8 PLATELETS 45 K/uL (Below low threshold) Range: 150-400 MPV 7.2 fL Range: 6.0-11.0 NEUTRO 3.6 K/uL Range: 2.0-6.9 SEGS 83 % (Above high threshold) Range: 37-80 BANDS 1 % Range: 0-7 LYMPH 9 % (Below low threshold) Range: 13-50 MONO 6 % Range: 0-12 EOSIN 1 % Range: 0-7 BASO 0 % Range: 0-3 OFE LYMPH 0 % Range: 0-0 META 0 % Range: 0-0 MYELO 0 % Range: 0-0 PRO 0 % Range: 0-0 BLAST 0 % Range: 0-0 NUC RBC 0 /100 WBC Range: 0-0 SMUDGE 0 /100 WBC PLATELET Decreased (Abnormal) Range: Adequate ANISO Mod POLYCHRO Slight OVAL Present 20-Jun-2016 14:17 PSA ( PROSTATE SPECIFIC ANTIGEN) 3100 Comments: Items were attached to this order: CBCDIItems were attached to this order: CBCIN BOOK UNDER NOV ORDERS PROSTATE SPECIFIC ANTIGEN 0.070 ng/mL Range: 0.000-4.000 Comments: Variance from previous testing noted.----- 14:22 Comprehensive Metabolic Panel 1212 Comments: Items were attached to this order: CBCDIItems were attached to this order: CBCIN BOOK UNDER NOV ORDERS SODIUM 138 mmol/L Range: 133-144 POTASSIUM 4.2 mmol/L Range: 3.5-5.1 CHLORIDE 105 mmol/L Range: 98-110 CARBON DIOXIDE 21.8 mmol/L (Below low threshold) Range: 23.0-33.0 ANION GAP 11 mmol/L Range: 6-16 BUN 26 mg/dL (Above high threshold) Range: 7-18 CREATININE, SERUM 1.03 mg/dL Range: 0.70-1.30 BUN:CREATININE RATIO 25 EST GFR, >60 ml/min Range: >60 EST GFR, NON-AFR SRI LANKAN >60 ml/min Range: >60 Comments: EST GFR is reported in ml/min per 1.73 m2 of body surface area. ----- GLUCOSE 134 mg/dL (Above high threshold) Range: 70-100 ALK PHOSPHATASE 170 U/L (Above high threshold) Range: 46-116 TOTAL BILIRUBIN 1.90 mg/dL (Above high threshold) Range: 0.20-1.00 AST 36 U/L (Above high threshold) Range: 8-35 ALT 32 U/L Range: 16-63 ALBUMIN 3.5 g/dL Range: 3.4-5.0 TOTAL PROTEIN 6.5 g/dL Range: 6.4-8.2 A/G RATIO 1.2 units Range: 1.0-1.8 CALCIUM 8.7 mg/dL Range: 8.5-10.1 14:57 CBC w/ Manual Diff 7225 Comments: Items were attached to this order: CBCDIItems were attached to this order: CBCIN BOOK UNDER NOV ORDERS WBC 4.7 K/uL Range: 4.5-11.0 RBC 3.10 mil/uL (Below low threshold) Range: 4.20-5.40 HGB 9.9 g/dL (Below low threshold) Range: 14.0-18.0 HCT 29.0 % (Below low threshold) Range: 42.0-53.0 MCV 93.3 fL Range: 80.0-99.0 MCH 32.0 pg Range: 27.3-32.5 MCHC 34.3 % Range: 32.0-36.0 RDW 20.6 % (Above high threshold) Range: 11.6-14.8 PLATELETS 40 K/uL (Below low threshold) Range: 150-400 MPV 8.7 fL Range: 6.0-11.0 NEUTRO 3.8 K/uL Range: 2.0-6.9 SEGS 83 % (Above high threshold) Range: 37-80 BANDS 2 % Range: 0-7 LYMPH 10 % (Below low threshold) Range: 13-50 MONO 4 % Range: 0-12 EOSIN 1 % Range: 0-7 BASO 0 % Range: 0-3 OFE LYMPH 0 % Range: 0-0 META 0 % Range: 0-0 MYELO 0 % Range: 0-0 PRO 0 % Range: 0-0 BLAST 0 % Range: 0-0 NUC RBC 0 /100 WBC Range: 0-0 SMUDGE 0 /100 WBC PLATELET Decreased (Abnormal) Range: Adequate ANISO Mod MACROCYT Slight POLYCHRO Slight OVAL Present 27-Jun-2016 15:07 CBC w/ Manual Diff 7225 [...] Mod MACROCYT Slight POLYCHRO Slight OVAL Present Plan of Care Name Dates Details Planned Observations Planned Goals not documented Planned Encounters Appointment; Provider: Ivone Baer On 10-Aug-2016 14:00 Instructions Name Dates Details Instructions not documented [...]
--- OUTSIDE RECORDS SUMMARY | 2016-12-11 10:09 | XMS REPORT | Summary of Care ---
Author Author Griffin Winn M.D. Organization Unknown Address [address] [place] [address] [phone] Phone Unavailable Care Team Providers Care Cyber Security Analyst Name Role Phone Pepe Esparza PP Unavailable [...] Procedures Procedure Dates Details ECG/ EKG Pendin CBC w/ Auto Diff 7150 Ordered: Comprehensive Metabolic Panel 1212 Ordered: THYROID STIM. HORMONE 3602 Ordered: XRay CHEST-PA & LAT Ordered: Immunization Name Dates Details Immunizations not documented Social History Smoking Status* Unknown if ever smoked Vital Signs Date Test Result Details No Known Vitals to report Results Date Description Value Details Results not documented Plan of Care Planned Observations* Name Dates Details Planned Goals not documented Goal Planned Encounters* Appointment; Provider: Griffin Winn On 13:00 Instructions * Instructions not documented Encounters No Encounter data documented Encounter Diagnosis: Problem not documented On
--- OUTSIDE RECORDS SUMMARY | 2016-12-11 10:09 | XMS REPORT | Summary of Care ---
Author Author Manuela Morrison, Donis Organization Unknown Address Unknown Phone Unavailable Care Team Providers Care Human Resources Mgr Name Role Phone Yudi Yarbrough Unavailable Hannah [...] TWICE DAILY. Quantity: 60 * Start Active [place] Thyroid 60 MG Oral Tablet TAKE TWO AND ONE-HALF TABLETS BY MOUTH DAILY * Quantity: 180 Refills: 11 Donis Roy M.D. * Start 23-Mar-2016 Active Pravastatin Sodium 10 MG Oral Tablet TAKE 1 TABLET DAILY. * Refills: 0 * Start Active Multi Vitamin Mens Oral Tablet TAKE 1 TABLET DAILY. * Refills: 0 Griffin Winn M.D. * Start Active Calcium Carbonate 500 (200 Ca) MG Oral Wafer Take 2 daily * Refills: 0 Donis Roy M.D. * Start 11-Jan-2016 Active Imodium A-D 2 MG Oral Tablet TAKE 2 TABLETS INITIALLY, FOLLOWED BY 1 TABLET AFTER EACH LOOSE BOWEL MOVEMENT. DO NOT EXCEED 8 TABLETS/DAY. * Refills: 0 Manuela M.D., Donis * Start 18-Aug-2016 Active Acetaminophen 325 MG Oral Tablet Take 2 tabs po every 4 hours PRN * Refills: 0 Manuela M.D., Donis * Start 18-Aug-2016 Active Nystatin 591088 UNIT/ML Mouth/Throat Suspension SWISH AND SWALLOW 5ML 4 TIMES DAILY. * Quantity: 200 Refills: 0 Harris M.D., Donis * Start 18-Oct-2016 Active Lidocaine HCl - 2 % External Gel Apply QID PRN * Quantity: 1 Refills: 2 Harris M.D., Donis * Start 09-Oct-2016 Active 30 ML Tube Pantoprazole Sodium 40 MG Oral Tablet Delayed Release TAKE 1 TABLET BY MOUTH DAILY * Quantity: 30 Refills: 11 Manuela M.D., Donis * Start 18-Aug-2016 Active Supplies Resmed S10 AirCurve 20/15 cm [...] 0 Andres P.A., Yudi * Start Active Furosemide 20 MG Oral Tablet TAKE ONE TO TWO TABLETS BY MOUTH ONCE DAILY NEEDED * Quantity: 60 Refills: 11 Manuela M.D.Donis * Start 28-Oct-2016 Active Allopurinol 300 MG Oral Tablet Take 1 1/2 tabs daily. * Quantity: 135 Refills: 3 Harris M.Aaron Bermudez * Start 11-Jan-2016 Active Losartan Potassium 50 MG Oral Tablet TAKE 1 TABLET DAILY. * Quantity: 90 Refills: 3 Harris M.D., Donis * Start 11-Jan-2016 Active Sulfamethoxazole-Trimethoprim 800-160 MG Oral Tablet TAKE 1 TABLET TWICE DAILY. * Quantity: 10 Refills: 0 Harris M.D., Donis * Start 07-Nov-2016 Active Allergies and Adverse [...] ML Intramuscular Suspension Prefilled Syringe Lot #: [id number] on: 18-Jul-2016 Family History Name Dates Details [...] >60 ml/min Range: >60 EST GFR, NON-AFR [place] >60 ml/min Range: >60 Comments: EST GFR [...] 11:03 Urinalysis, [facility] Comments: Testing performed by [facility], [address], [place] [address] Testing performed by [facility], [address], [place] [address] pH 6.0 Range: 5.0-7.5 SP GRAVITY 1.015 [...] Slight OVAL Present 10-Nov-2016 09:26 URINE CULTURE [id number] Comments: [facility] performed at: [facility], [address], [place]: Cameron Beaulieu D.O., MPHQuest Collection Date/Time: [id number] Results Received Date/Time: [id number] Reported Date/Time: FASTING:NOQuest performed at: [facility], [address] [place] [address], [id number], [place]: Cameron Beaulieu D.O., MPHQuest Collection Date/Time: [id number] Results Received Date/Time: [id number] Reported Date/Time: FASTING:NO CULTURE, URINE, ROUTINE SEE NOTE (Abnormal) Comments: CULTURE, URINE, ROUTINE MICRO NUMBER: [id number] TEST STATUS: FINAL SPECIMEN SOURCE : URINE [...] Labs/Procedures/Imaging* CBC w/ Auto Diff 7150; Done: [id number] 09:43AM Instructions Name Dates Details Instructions not documented [...]
--- OUTSIDE RECORDS SUMMARY | 2016-12-11 10:10 | XMS REPORT | Summary of Care ---
Author Author Manuela Morrison, Donis Organization Unknown Address Unknown Phone Unavailable Care Team Providers Care Practice Coordinator Name Role Phone Yudi Yarbrough Unavailable Hannah [...] Status: Active Gout (274.9, M10.9) Status: Active Hypocalcemia (275.41, E83.51) Status: Active Diarrhea (787.91, R19.7) Status: Active Fever (780.60, R50.9) Status: Active Medications Name Dates Details Metoprolol Tartrate 25 MG Oral Tablet TAKE 1 TABLET TWICE DAILY. Quantity: 60 * Start Active [place] Thyroid 60 MG Oral Tablet TAKE TWO AND ONE-HALF TABLETS BY MOUTH DAILY * Quantity: 180 Refills: 11 WalesDonis leon M.D. * Start 23-Mar-2016 Active Pravastatin [...] tabs daily. * Quantity: 135 Refills: 3 Araon Roy M.D. * Start 11-Jan-2016 Active Eliquis 5 MG Oral Tablet Take twice daily * Quantity: 60 Refills: 6 WalesDonis leon M.D. * Start 11-Jan-2016 Active Furosemide 20 MG Oral Tablet Take 1-2 tabs po q day as needed * Quantity: 60 Refills: 3 WalesDonis leon M.D. * Start 11-Jan-2016 Active Calcium [...] Quantity: 1 Refills: 0 Griffin Winn M.D. Start 03-May-2016 Active Pantoprazole Sodium 40 MG Oral Tablet Delayed Release TAKE 1 TABLET BY MOUTH DAILY * Quantity: 90 Refills: 3 Manuela Rucker.Donis Bermudez * Start 18-Aug-2016 Active Imodium A-D 2 MG Oral Tablet TAKE 2 TABLETS INITIALLY, FOLLOWED BY 1 TABLET AFTER EACH LOOSE BOWEL MOVEMENT. DO NOT EXCEED 8 TABLETS/DAY. * Refills: 0 Walescarolyn Morrison, Donis * Start 18-Aug-2016 Active Acetaminophen 325 MG Oral Tablet Take 2 tabs po every 4 hours PRN * Refills: 0 Manuela M.DDennis, Donis * Start 18-Aug-2016 Active Allergies and [...] ML Intramuscular Suspension Prefilled Syringe Lot #: [id number] on: 18-Jul-2016 Family History Name Dates Details [...] Provider: Donis Roy M.D. On 23-Aug-2016 10:00 Appointment; Provider: Donis Roy M.D. On 22-Aug-2016 11:00 Instructions Name Dates Details Instructions not [...]
--- OUTSIDE RECORDS SUMMARY | 2016-12-11 10:10 | XMS REPORT ---
Author Author Eden Pyle Organization [employer] Address Unknown Phone Unavailable Care Team Providers Care Fire Marshal Name Role Phone Eden Pyle CP Unavailable [...]
--- OUTSIDE RECORDS SUMMARY | 2016-12-11 10:10 | XMS REPORT | Summary of Care ---
Author Author Manuela Morrison, Donis Organization Unknown Address Unknown Phone Unavailable Care Team Providers Care Field Professional Name Role Phone Yudi Yarbrough Unavailable Unavailable [...] DAILY. Griffin Winn M.D. * Start Active [place] Thyroid 60 MG Oral Tablet TAKE TWO AND ONE-HALF TABLETS BY MOUTH DAILY * Quantity: 180 Refills: 11 [place] M.D., Donis * Start 23-Mar-2016 Active Pravastatin [...] TABLET DAILY. * Quantity: 30 Refills: 6 [place] M.D., Donis * Start 11-Jan-2016 Active Calcium Carbonate 500 (200 Ca) MG Oral Wafer Take 1 daily * Refills: 0 [place] M.D., Donis * Start 11-Jan-2016 Active Vitamin B Complex Oral Tablet TAKE 1 TABLET DAILY. * Refills: 0 [place] M.D., Donis * Start 11-Jan-2016 Active Vitamin C 500 MG Oral Tablet Chewable CHEW AND SWALLOW 1 TABLET DAILY. * Refills: 0 [place] M.D., Donis * Start 11-Jan-2016 Active Saw [place] Oral Capsule TAKE 1 CAPSULE DAILY. * Refills: 0 [place] M.D., Donis * Start 11-Jan-2016 Active Supplies [...] ml/min Range: >60 EST GFR, NON-AFR NIUEAN 56 ml/min (Below low threshold) Range: >60 Comments: EST GFR is reported in ml/min per 1.73 m2 of body surface area. For -Albanian, please multiple result by 1.2.----- GLUCOSE 97 [...] ng/dL Range: 0.80-1.67 13:11 Triiodothyronine,Free,Serum ( T3) [id number] Comments: Testing performed at: [facility], [address] [place] [address], [place], [address], , Marketing Production Coordinator: RAND Ashley MD TRIIODOTHYRONINE,FREE,SERUM 3.9 pg/mL Range: [...] Goals not documented Interventions Provided Medication Changes* [place] Thyroid 60 MG Oral Tablet - Renew Instructions Name [...]
--- OUTSIDE RECORDS SUMMARY | 2016-12-11 10:10 | XMS REPORT | Referral Summary ---
Author Author [facility] Organization [facility] Address Unknown Phone Unavailable Care Team Providers Care Occasional Caregiver Name Role Phone Joe Roy Primary Care Physician [phone] Encounter [facility] [id number] Date(s): 01/11/15 - 01/11/15 [facility] [address] [place], [place] [address] Discharge Diagnosis: Capillary hemangioma Discharge Diagnosis: Solar [...] DAILY, # 100 tabs, 3 Refill(s), eRx: [facility], TAKE ONE-HALF TABLET BY MOUTH TWICE DAILY Start Date: 03/06/14 Status: Ordered multivitamin 1 tabs, Oral, Daily Start Date: 07/01/14 Status: Ordered pravastatin 10 mg oral tablet See Instructions, TAKE ONE TABLET BY MOUTH ONCE DAILY, # 90 tabs, 1 Refill(s), eRx: [facility], TAKE ONE TABLET BY MOUTH [...] R acetabular fx1 10/08/08 S/P colonoscopy2 08/16/07 [facility] - Acc 10/07/08 rec 2WNL; repeat 10 years Social History Social History Type Response Smoking Status Never smoker Assessment and Plan Extracted from: Title: Office Visit Note Author: Ariel Vizcarra MD Date: 01/11/15 Assessment/Plan 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
--- OUTSIDE RECORDS SUMMARY | 2016-12-11 10:10 | XMS REPORT ---
Author Author Eden Pyle Organization [employer] Address Unknown Phone Unavailable Care Team Providers Care Jacquard Fixer Name Role Phone Eden Pyle CP Unavailable [...]
--- OUTSIDE RECORDS SUMMARY | 2016-12-11 10:10 | XMS REPORT | Summary of Care ---
Author Author Manuela Morrison, Donis Organization Unknown Address Unknown Phone Unavailable Care Team Providers Care Leaf Coverer Name Role Phone Yudi Yarbrough Unavailable Hannah [...] TWICE DAILY. Quantity: 60 * Start Active [place] Thyroid 60 MG Oral Tablet TAKE TWO [...] as needed * Quantity: 60 Refills: 3 [place] GroveDonis leon M.D. * Start 11-Jan-2016 Active Calcium [...] MOUTH DAILY * Quantity: 30 Refills: 11 [place] GroveDonis leon M.D. * Start 18-Aug-2016 Active Imodium [...] Start 09-Oct-2016 Active 30 ML Tube Nystatin 917738 UNIT/ML Mouth/Throat Suspension SWISH AND SWALLOW 5ML [...] ML Intramuscular Suspension Prefilled Syringe Lot #: [id number] on: 18-Jul-2016 Family History Name Dates Details [...] >60 ml/min Range: >60 EST GFR, NON-AFR FRENCH 60 ml/min (Below low threshold) Range: >60 [...] Planned Observations Comprehensive Metabolic Panel 1212 On 22-Oct-2016 Intent URIC ACID 1155 On 22-Oct-2016 Intent Planned Goals not documented Planned Encounters [...]
--- OUTSIDE RECORDS SUMMARY | 2016-12-11 10:10 | XMS REPORT | Referral Summary ---
Author Author [facility] Organization [facility] Address Unknown Phone Unavailable Care Team Providers Care Health And Fitness Instructor Name Role Phone Joe Roy Primary Care Physician [phone] [facility] [id number] Date(s): 05/19/15 - 05/19/15 [facility] [address] [place] [address] JAY Molina [id number] Discharge Diagnosis: Pulmonary hypertension Discharge Diagnosis: [...] DAILY, # 100 tabs, 3 Refill(s), eRx: [facility], TAKE ONE-HALF TABLET BY MOUTH TWICE DAILY Start Date: 03/06/14 Status: Ordered multivitamin 1 tabs, Oral, Daily Start Date: 07/01/14 Status: Ordered pravastatin 10 mg oral tablet See Instructions, TAKE ONE TABLET BY MOUTH ONCE DAILY, # 90 tabs, 1 Refill(s), eRx: [facility], TAKE ONE TABLET BY [...] R acetabular fx1 10/08/08 S/P colonoscopy2 08/16/07 [facility] - Acc 10/07/08 rec 2WNL; repeat [...]
--- OUTSIDE RECORDS SUMMARY | 2016-12-11 10:10 | XMS REPORT | Referral Summary ---
Author Author [facility] Organization [facility] Address Unknown Phone Unavailable Care Team Providers Care Front Line Supervisor Name Role Phone Joe Roy Primary Care Physician [phone] Encounter [facility] [id number] Date(s): 05/19/15 - 05/19/15 [facility] [address] [place] [address] JAY Molina [address] Discharge Diagnosis: Pulmonary hypertension Discharge Diagnosis: Aortic [...] DAILY, # 100 tabs, 3 Refill(s), eRx: [facility], TAKE ONE-HALF TABLET BY MOUTH TWICE DAILY Start Date: 03/06/14 Status: Ordered multivitamin 1 tabs, Oral, Daily Start Date: 07/01/14 Status: Ordered pravastatin 10 mg oral tablet See Instructions, TAKE ONE TABLET BY MOUTH ONCE DAILY, # 90 tabs, 1 Refill(s), eRx: [facility], TAKE ONE TABLET BY [...] R acetabular fx1 10/08/08 S/P colonoscopy2 08/16/07 [facility] - Acc 10/07/08 rec 2WNL; [...]
--- OUTSIDE RECORDS SUMMARY | 2016-12-11 10:11 | XMS REPORT | Summary of Care ---
Author Author Manuela Morrison, Donis Organization Unknown Address Unknown Phone Unavailable Care Team Providers Care Occupational Health Physician Name Role Phone Yudi Yarbrough Unavailable Hannah Roy M.D., Donis Roy M.D., Aaron Unavailable Unavailable Tatum Morrison, Michelle Unavailable Unavailable Donsi Roy Unavailable Unavailable Unavailable Unavailable Functional Status [...] TWICE DAILY. Quantity: 60 * Start Active [place] Thyroid 60 MG Oral Tablet TAKE TWO [...] Wafer Take 2 daily * Refills: 0 [place] M.D., Donis * Start 11-Jan-2016 Active Supplies [...] MOUTH DAILY * Quantity: 30 Refills: 11 [place] M.D., Donis * Start 18-Aug-2016 Active Imodium A-D 2 MG Oral Tablet TAKE 2 TABLETS INITIALLY, FOLLOWED BY 1 TABLET AFTER EACH LOOSE BOWEL MOVEMENT. DO NOT EXCEED 8 TABLETS/DAY. * Refills: 0 [place] M.D., Donis * Start 18-Aug-2016 Active Acetaminophen 325 MG Oral Tablet Take 2 tabs po every 4 hours PRN * Refills: 0 [place] M.D.Donis * Start 18-Aug-2016 Active Allergies and [...] ML Intramuscular Suspension Prefilled Syringe Lot #: [id number] on: 18-Jul-2016 Family History Name Dates Details [...]
[2016-12-11] MEDS: NITROGLYCERIN 0.4 MG SUBLINGUAL TABLET SL PRN ×2 (10:12→10:18)
--- OUTSIDE RECORDS SUMMARY | 2016-12-11 10:12 | XMS REPORT | Continuity of Care Document ---
Author Author [facility] Address Unknown Phone Unavailable Care Team Providers Care Photographer Scientific Name Role Phone GARRETT, MARY LOU Rucker MD Primary Care Physician [phone] Insurance Providers Payer Name Policy Number Subscriber Name Relationship Medicare A And B [id number] Delon Pinto 18 Self / Same As Patient Other1 [id number] Delon Pinto 18 Self / Same As Patient Advance Directives Directive Response Recorded Date/Time Advanced Directives Unknown 08/12/16 4:26pm Type Durable Power of Dowel Pin Worker 08/12/16 4:26pm Type Living Will 08/12/16 4:26pm Chief Complaint and Reason for Visit Chief Complaint SHORTNESS OF BREATH Reason for Visit Coagulopathy Dyspnea GI bleed Shortness of breath Weakness generalized Problems Active Problems Medical Problem Onset Date Status Coagulopathy Unknown Acute Dyspnea Unknown Acute Edema Unknown Acute Fluid overload Unknown Acute GI bleed ~07/29/2016 Acute Shortness of breath Unknown Acute Weakness generalized Unknown Acute Medications Current [...] Patient's Instructions Instructions Instructions You were admitted due to fluid overload. You were started on "water pills" to pull that fluid off, you will be continued on this medication daily (furosemide). This dose may be adjusted by your PCP in the future. You have been started on your blood thinner. This had been held due to your GI bleed in July. Your other home medications have not be changed. You will need to follow up with Dr. Roy in the next 2 weeks. Orders DISCHARGE: Discharge to:: SNF Xfer Skilled Nurse Facill Plan of Care Discharge Date 08/18/16 11:52am Disposition 03 XFER SNF Prescriptions See Medication Section Referrals MARY LOU ROY MD ([facility]) - 08/23/16 Address: [address] [place] [id number] Care Plan and Goals See Discharge Instructions Section Functional Status Query Response Date Recorded Level of Conscious Alert Oriented x4 Lethargic August 18, 2016 8:53am Movement Moves extremities Weakness August 18, 2016 8:53am Allergies, Adverse Reactions, Alerts No known allergies. Immunizations No immunization records. Vital Signs Acute Vital Signs Vital Response Date/Time Temperature (Fahrenheit) 97.8 08/18/2016 8:19am Pulse 75 bpm 08/18/2016 8:19am Respirations 20 08/18/2016 8:19am Height 5 ft 8 in Weight 120 lb Body Mass Index 18.0 kg/m^2 Results Laboratory Results Test Name Result [...] 8.0 07/31/2016 6:53pm 07/31/2016 8:37pm Urine Specific [place] 1.015 1.005-1.030 07/31/2016 6:53pm 2015 8:37pm Urine [...] 5:50am 08/02/2016 6:44am BUN/Creatinine Ratio 39 H 10-08/01/2016 5:30am 08/01/2016 6:47am Estimat Glomerular Filtration Rate [...] 0.038 ng/mL 0.010-0.080 07/29/2016 3:14pm 07/29/2016 3:59pm TI-Lbu-D-Type Natriuretic Peptide 7050 pg/mL H 0-450 07/29/2016 [...] 0.7-2.1 07/31/2016 6:00am 07/31/2016 7: 01am PATHOLOGY WPM 08/02/2016 1:00pm 08/03/2016 2:58pm Results received from [facility] Lab 08/[id number] PERIPHERAL SMEAR - SO [facility] 07/29/2016 5:15pm 08/04/2016 9:37am Results received from [facility] [id number] Pending Laboratory Results Test Name Collection Date/Time Procedures Procedure Status Date Provider(s) INSPECTION OF UPPER INTESTINAL TRACT, ENDO Completed 08/01/16 KIRA TEAGUE MD EXCISION OF SIGMOID COLON, ENDO, DIAGN Completed 08/02/16 JOHNATHON SOTO MD ROUTINE VENIPUNCTURE Completed 08/08/16 COMPREHEN METABOLIC PANEL Completed 08/08/16 COMPLETE CBC W/AUTO DIFF WBC Completed 08/08/16 EXTREMITY STUDY Completed 08/08/16 EMERGENCY DEPT VISIT Completed 08/08/16 Encounters Encounter Location Arrival/Admit Date Discharge/Depart Date Attending Provider Discharged Inpatient [facility] 08/13/16 12:24pm 08/18/16 11:52am OMRALES WHITE MD Departed Emergency Room [facility] 08/08/16 1:07pm 08/08/16 4:20pm CHASE VUONG MD Discharged Inpatient [facility] 07/29/16 4:00pm 08/02/16 3:45pm RENETTA MONROE DO Recent Diagnosis Coagulopathy Dyspnea GI bleed Shortness of breath Weakness generalized
--- OUTSIDE RECORDS SUMMARY | 2016-12-11 10:12 | XMS REPORT | Summary of Care ---
Author Author Manuela Morrison, Donis Organization Unknown Address Unknown Phone Unavailable Care Team Providers Care Barrel Reamer Name Role Phone Yudi Yarbrough Unavailable Hannah [...] TWICE DAILY. Quantity: 60 * Start Active [place] Thyroid 60 MG Oral Tablet TAKE TWO [...] Wafer Take 2 daily * Refills: 0 [place] M.D., Donis * Start 11-Jan-2016 Active Supplies [...] MOUTH DAILY * Quantity: 30 Refills: 11 [place] M.D., Donis * Start 18-Aug-2016 Active Imodium A-D 2 MG Oral Tablet TAKE 2 TABLETS INITIALLY, FOLLOWED BY 1 TABLET AFTER EACH LOOSE BOWEL MOVEMENT. DO NOT EXCEED 8 TABLETS/DAY. * Refills: 0 Manuela M.D., Donis * Start 18-Aug-2016 Active Acetaminophen 325 MG Oral Tablet Take 2 tabs po every 4 hours PRN * Refills: 0 [place] M.D., Donis * Start 18-Aug-2016 Active Allergies [...] ML Intramuscular Suspension Prefilled Syringe Lot #: [id number] on: 18-Jul-2016 Family History Name Dates Details [...] low threshold) Range: >60 EST GFR, NON-AFR KENYAN 48 ml/min (Below low threshold) Range: >60 [...] Mod POLYCHRO Slight OVAL Present TEAR Present 12-Sep-2016 14:31 CBC w/ Auto Diff 7150 [...] Labs/Procedures/Imaging* CBC w/ Auto Diff 7150; Done: 12Sep2016 09:53AM Instructions Name Dates Details Instructions not documented [...]
--- NOTE | 2016-12-11 10:13 | ERPDOC ---
Departure Disposition Decision Date: December 11, 2016 Disposition Decision Time: 11:51 Disposition: 01 DISCHARGED HOME, SELF-CARE Impression Impression Impression: Primary Impression: CAP (community acquired pneumonia) Severity: Moderate Condition: Improved Seen By: Physician only Referrals: BLESSING BATISTA MD (Family) 3 Days Patient Instructions: Community Acquired Pneumonia (ED) Problems/Meds/Labs Reviewed?: Yes Medications reviewed and manag: Yes Additional Instructions: We have evaluated you for causes of chest pain. It appears that you have left lung pneumonia, in addition to baseline heart failure. Take the antibiotic as prescribed for the pneumonia. Follow up with your doctor to ensure that you are getting better. Follow up care ordered?: Yes Mental Status: Alert, Oriented Scripts Levofloxacin (Levaquin) 750 Mg Tablet 750 MG PO DAILY for 7 Days Prov: DECEMBERMARSHA DO 12/11/16 HPI - Chest Pain General Chief Complaint: Chest Pain Stated Complaint: CP Time Seen by Provider: 10:10 Source: patient Exam Limitations: no limitations HPI - Chest Pain Initial Comments 86yo man presents to the ER with CP. Pt is unable to further characterize CP; has an extensive cardiac hx, including a-fib, ventricular pacer, valve replacement, and CHF. Sx started last night, but pt cannot remember when exactly. Occurred At: home Onset/Timing: Rapid Duration: 6-12 hrs Pain/Severity Scale: Now & Worst: Unable to Rate Activities at Onset/Context: rest Location: substernal 1 - Pain Quality: 'pain' Associated Symptoms: denies symptoms Chest Pain Radiation: no radiation Nitro Today/Relief: no nitro taken today Aspirin Treatment Today: contraindicated Aspirin contraindicated becaus: On Anticoagulant Therapy Hx of Similar Symptoms: No Allergies: Coded Allergies: No Known Allergies (Unverified , 12/11/16) Viagra/ED med in past 36 hrs: No Past History Past Medical History Metabolic: gout, hypercholesterolemia, hypertension Cardiac: A-fib, CHF GI: GERD Surgical History Cardiac: pacemaker, valve replacement Review of Systems Cardiovascular Cardiac: chest pain All other Systems All Other Systems: Reviewed and Negative Physical Exam General General Nourishment: well nourished, well developed, appears stated age, no acute distress, adult, thin General Body Habitus: well groomed Vitals and Pain Weight: Kilograms: 59.700 Height (feet): 5 Height (inches): 8.00 Triage Pain Scale: RN VS reviewed by Provider: Yes Normal Exams: Head: Normocephalic w/o trauma Eyes: Pupils are PERRLA w/ EOMI, No scleral icterus, irritation ENMT: No facial trauma, nasal exudates, pharyngeal erythema Neck: Full range of motion, without adenopathy, JVD Lymphatic: No lymphadenopathy Musculoskeletal: No tenderness, or deformity noted Integumentary: No rashes, hives Neurologic: Patient is alert, and oriented Psychiatric: Patient exhibits, appropriate attention Respiratory (brief) Respiratory: FOUND: clear all mitchell, equal bilaterally, symmetrical, NOT FOUND : rales, wheezes Comments Portocath present on right and pacemaker present on left Cardiovascular (brief) Cardiac: FOUND: regular rate, regular rhythm, NOT FOUND: click, gallop, murmur , pedal edema, peripheral edema, rub Capillary Refill: <2 sec Pulses: all distal extremities, equal, strong Abdomen (brief) Abdominal Brief: FOUND: bowel normo active x4, soft, NOT FOUND: distended, hepatosplenomegaly, pulsatile mass, tender Differential Diagnoses Considering: Acute FL, Angina, CHF, Costochondritis, Esophageal Spasm, GERD, Pericarditis, Pneumothorax, Pneumonia, PSVT, Pulmonary Edema, Muscle Spasm Progress Results/Orders Orders Lab Results Medications Current ED Medications Sodium Chloride (Normal Saline IV) 1,000 ml @ 70 mls/hr [id number] ONCE IV Last administered on 12/11/16 10:13; Start 12/11/16 at 10:01; Stop 12/11/16 at 16:24; Status DC Aspirin (ASA) 324 mg O ONCE PO ; Start 12/11/16 at 10:15; Stop 12/11/16 at 10:16 ; Status DC Nitroglycerin (Nitrostat) 0.4 mg Q5MIN PRN SL CHEST PAIN Last administered on 10:18; Start 12/11/16 at 10:15; Stop 12/11/16 at 16:24; Status DC Heparin Sodium (Porcine) 500 unit 500 unit O ONCE IV Last administered on 12:58; Start 12/11/16 at 10:15; Stop 12/11/16 at 10:16; Status DC Levofloxacin/ Dextrose/Water (LEVAQUIN 750 mg IVPB/D5W) 150 ml @ 100 mls/hr O ONCE IV Last administered on 12/11/16t 10:56; Start 12/11/16 at 10:45; Stop at 12:14; Status DC Progress Progress No evidence of FL, PTX, CHF, or COPD exacerbation. Most likely PNA, based on Hx , PE, and rads. Discussed dx, prognosis, tx, and need for f/u with pt and family , who all voiced understanding. Vitals stable, pts SaO2 is 98-99% on RA while at rest (pt does desat when moving, but this is chronic, and pts PCM has discussed starting pt on home O2; pt cont to decline home O2). Excellent RTC precautions given. EKG EKG : Rate: 60-100 Rhythm: other (A/V paced.) Interpreted by: signing physician Xray Xray : Xray: CXR Portable Interpretation: Abnormal (B/l haziness with CPA obscuring on left; concern for edema +/- CAP), Interpreted by MARSHA Balderrama DO December 11, 2016 10:13 Normal Saline (Normal PHA 12/11/16 In Process Saline Iv) 10:01 Aspirin (Asa) PHA 12/11/16 Complete 10:15 Nitroglycerin PHA 12/11/16 In Process (Nitrostat) 10:15 May Use / Access Port SYDNIE 12/11/16 In Process Line 10:01 Heparin Flush PHA 12/11/16 Complete (Heparin Flush) 10:15 Levofloxacin 750 Mg PHA 12/11/16 Complete Ivpb (Levaquin 750 M 10:45 Lab Results Laboratory Tests Test 12/11/16 10:13 White Blood Count 5.5T/MM3 Red Blood Count 2.78M/MM3 Hemoglobin 8.8GM/DL Hematocrit 27.0% Mean Corpuscular Volume 97.1UM3 Mean Corpuscular Hemoglobin 31.7UUG Mean Corpuscular Hemoglobin Concent 32.6GM/DL RDW Standard Deviation 67.1FL Platelet Count 42T/MM3 Mean Platelet Volume 9.2UM3 Immature Granulocyte % (Auto) 0.7% Neutrophils (%) (Auto) 80.1% Lymphocytes (%) (Auto) 11.4% Monocytes (%) (Auto) 6.0% Eosinophils (%) (Auto) 1.4% Basophils (%) (Auto) 0.4% Absolute Immature Granulocyte (auto 0.04T/MM3 Absolute Neutrophils (auto) 4.4T/MM3 Absolute Lymphocytes (auto) 0.6T/MM3 Absolute Monocytes (auto) 0.3T/MM3 Absolute Eosinophils (auto) 0.1T/MM3 Absolute Basophils (auto) 0.0T/MM3 Prothromb Time International Ratio 1.50 Turbidity < 20 Sodium Level 144MEQ/L Potassium Level 4.5MEQ/L Chloride Level 111MEQ/L Carbon Dioxide Level 22MEQ/L Anion Gap 11MEQ/L Blood Urea Nitrogen 32.0MG/DL Creatinine 1.1MG/DL Glomerular Filtration Rate Calc 63 BUN/Creatinine Ratio 29RATIO Glucose Level 102MG/DL Calculated Osmolality 284MOSM/KG Calcium Level 9.0MG/DL Icterus Index < 2 Troponin I < 0.012ng/ml XX-Uzo-R-Type Natriuretic Peptide 1950PG/ML Chemistry Specimen Hemolysis < 15 Medications Current ED Medications Sodium Chloride (Normal Saline IV) 1,000 ml @ 70 mls/hr [id number] ONCE IV Last administered on 12/11/16 10:13; Start 12/11/16 at 10:01; Stop 12/12/16 at 00:18 Aspirin (ASA) 324 mg O ONCE PO ; Start 12/11/16 at 10:15; Stop 12/11/16 at 10:16 ; Status DC Nitroglycerin (Nitrostat) 0.4 mg Q5MIN PRN SL CHEST PAIN Last administered on 10:18; Start 12/11/16 at 10:15 Heparin Sodium (Porcine) 500 unit 500 unit O ONCE IV ; Start 12/11/16 at 10:15; Stop 12/11/16 at 10:16; Status DC Levofloxacin/ Dextrose/Water (LEVAQUIN 750 mg IVPB/D5W) 150 ml @ 100 mls/hr O ONCE IV Last administered on 12/11/16 10:56; Start 12/11/16 at 10:45; Stop at 12:14; Status DC Progress Progress No evidence of FL, PTX, CHF, or COPD exacerbation. Most likely PNA, based on Hx , PE, and rads. Discussed dx, prognosis, tx, and need for f/u with pt and family , who all voiced understanding. Vitals stable, pts SaO2 is 98-99% on RA while at rest (pt does desat when moving, but this is chronic, and pts PCM has discussed starting pt on home O2). Excellent RTC precautions given. EKG EKG : Rate: 60-100 Rhythm: other (A/V paced.) Interpreted by: signing physician Xray Xray : Xray: CXR Portable Interpretation: Abnormal (B/l haziness with CPA obscuring on left; concern for edema +/- CAP), Interpreted by MARSHA Balderrama DO December 11, 2016 10:13
--- OUTSIDE RECORDS SUMMARY | 2016-12-11 10:13 | XMS REPORT | Summary of Care ---
Author Author Aaron Roy M.D. Organization Unknown Address Unknown Phone Unavailable Care Team Providers Care Lean Specialist Name Role Phone Yudi Yarbrough Unavailable Donis [...] DAILY. Griffin Winn M.D. * Start Active [place] Thyroid 60 MG Oral Tablet Take 2 tab daily alternating with 2 1/2 tab every other day * Quantity: 180 Refills: 0 [place] M.D., Donis * Start Active Pravastatin Sodium 10 MG Oral Tablet TAKE 1 TABLET DAILY. * Refills: 0 Griffin Winn M.D. * Start Active Multi Vitamin Mens Oral Tablet TAKE 1 TABLET DAILY. * Refills: 0 [place] M.Griffin Bermudez * Start Active Losartan Potassium 50 MG Oral Tablet TAKE 1 TABLET DAILY. * Refills: 0 Manuela M.D.LindyDonis * Start 11-Jan-2016 Active Allopurinol 300 MG Oral Tablet TAKE 1 TABLET DAILY. * Refills: 0 Manuela M.D., Donis * Start 11-Jan-2016 Active Eliquis 5 MG Oral Tablet Take twice daily * Quantity: 60 Refills: 6 Manuela M.D., Donis * Start 11-Jan-2016 Active Lasix 40 MG Oral Tablet TAKE 1 TABLET DAILY. * Quantity: 30 Refills: 6 [place] M.D., Donis * Start 11-Jan-2016 Active Calcium Carbonate 500 (200 Ca) MG Oral Wafer Take 1 daily * Refills: 0 [place] M.D., Donis * Start 11-Jan-2016 Active Vitamin B Complex Oral Tablet TAKE 1 TABLET DAILY. * Refills: 0 [place] M.D., Donis * Start 11-Jan-2016 Active Vitamin C 500 MG Oral Tablet Chewable CHEW AND SWALLOW 1 TABLET DAILY. * Refills: 0 [place] M.D., Donis * Start 11-Jan-2016 Active [place] Oral Capsule TAKE 1 CAPSULE DAILY. * Refills: 0 [place] M.D., Donis * Start 11-Jan-2016 Active Supplies [...] BP Diastolic 64 mm[Hg] Status: Comments: Location: E; Position: Sitting Temperature 97.8 f Status: Comments: [...] >60 ml/min Range: >60 EST GFR, NON-AFR [place] 56 ml/min (Below low threshold) Range: >60 Comments: EST GFR is reported in ml/min per 1.73 m2 of body surface area. For -Dominican, please multiple result by 1.2.----- GLUCOSE 97 [...] ng/dL Range: 0.80-1.67 13:11 Triiodothyronine,Free,Serum ( T3) [id number] Comments: Testing performed at: [DA] [facility], [address] [place] [address] [address], [place], [address], , Education And Outreach Coordinator: RAND Ashley MD TRIIODOTHYRONINE,FREE,SERUM 3.9 pg/mL Range: 2.0-4.4 13-Mar-2016 16:24 ECG/ EKG CP - Electro CardioGram ECG/ EKG Cardiology Read ECG waiting for interpretation, click ImageLink button to view/confirm the study. Plan of Care Name Dates Details Planned [...]
--- OUTSIDE RECORDS SUMMARY | 2016-12-11 10:13 | XMS REPORT | Summary of Care ---
Author Author Manuela Morrison, Donis Organization Unknown Address Unknown Phone Unavailable Care Team Providers Care Language Assistant Name Role Phone Yudi Yarbrough Unavailable Unavailable [...] DAILY. Griffin Winn M.D. * Start Active [place] Thyroid 60 MG Oral Tablet Take 2 tab daily alternating with 2 1/2 tab every other day * Quantity: 180 Refills: 0 [place] M.D., Donis * Start Active Pravastatin Sodium [...] TAKE 1 TABLET DAILY. * Refills: 0 [place] M.D., Donis * Start 11-Jan-2016 Active Eliquis 5 MG Oral Tablet Take twice daily * Quantity: 60 Refills: 6 [place] M.D., Donis * Start 11-Jan-2016 Active Lasix 20 MG Oral Tablet TAKE 1 TABLET DAILY. * Refills: 0 [place] M.D., Donis * Start 11-Jan-2016 Active Calcium Carbonate 500 (200 Ca) MG Oral Wafer Take 1 daily * Refills: 0 Manuela M.D., Donis * Start 11-Jan-2016 Active Vitamin B Complex Oral Tablet TAKE 1 TABLET DAILY. * Refills: 0 [place] M.D., Donis * Start 11-Jan-2016 Active Vitamin C 500 MG Oral Tablet Chewable CHEW AND SWALLOW 1 TABLET DAILY. * Refills: 0 Manuela M.D., Donis * Start 11-Jan-2016 Active [place] Oral Capsule TAKE 1 CAPSULE DAILY. * [...] Repair History of Colonoscopy Triiodothyronine,Free,Serum ( T3) [id number] Ordered: Immunization Name Dates Details Immunizations not [...] >60 ml/min Range: >60 EST GFR, NON-AFR GUINEAN 56 ml/min (Below low threshold) Range: >60 Comments: EST GFR is reported in ml/min per 1.73 m2 of body surface area. For -Chilean, please multiple result by 1.2.----- GLUCOSE 97 [...] 3604 FREE T4 0.94 ng/dL Range: 0.80-1.67 Plan of Care Name Dates Details Planned [...]
--- OUTSIDE RECORDS SUMMARY | 2016-12-11 10:13 | XMS REPORT | Summary of Care ---
Author Author Manuela Morrison, Donis Organization Unknown Address Unknown Phone Unavailable Care Team Providers Care Fleet Technician Name Role Phone Yudi Yarbrough Unavailable Hannah [...] TWICE DAILY. Quantity: 60 * Start Active [place] Thyroid 60 MG Oral Tablet TAKE TWO [...] MOUTH DAILY * Quantity: 30 Refills: 11 [place] M.Michelle.Donis * Start 18-Aug-2016 Active Imodium A-D [...] QID PRN * Quantity: 1 Refills: 2 [place] M.D.Donis * Start 09-Oct-2016 Active 30 ML Tube Nystatin [id number] UNIT/ML Mouth/Throat Suspension SWISH AND SWALLOW 5ML [...] ML Intramuscular Suspension Prefilled Syringe Lot #: [id number] on: 18-Jul-2016 Family History Name Dates Details [...] >60 ml/min Range: >60 EST GFR, NON-AFR [place] 60 ml/min (Below low threshold) Range: >60 [...] >60 ml/min Range: >60 EST GFR, NON-AFR [place] >60 ml/min Range: >60 Comments: EST GFR [...] 11:03 Urinalysis, reflex to Micro and Culture ([facility]) 1011 Comments: Testing performed by [facility], [address], [place] [address] Testing performed by [facility], [address], [place] [address] pH 6.0 Range: 5.0-7.5 SP GRAVITY 1.015 [...] not documented On 28-Sep-2016 11:30 Appointment; Donis oRy M.D. Encounter Diagnosis: Problem not documented On [...]
--- OUTSIDE RECORDS SUMMARY | 2016-12-11 10:13 | XMS REPORT | Summary of Care ---
Author Author Donis Roy M.D. Organization Unknown Address [address] [place], [place] [id number] Phone Unavailable Care Team Providers Care Lock Operator Name Role Phone Donis Roy M.D. Unavailable [...] 0 Donis Roy M.D.* Started 11-Jan-2016 ActiveSaw [place] Oral Capsule TAKE 1 CAPSULE DAILY. * [...] Instructions * Instructions not documented Encounters Appointment; Josep Dao Encounter Diagnosis: Problem not documented On 15-Nov-2015 14:45 Appointment; Griffin Winn Encounter Diagnosis: Problem not documented On 15-Apr-2015 10:30 Appointment; Griffin Winn Encounter Diagnosis: Problem not documented On 13:00
[2016-12-11] MEDS ORDERED: ASPIRIN 81 MG CHEWABLE TABLET PO ONE (10:15)
--- NOTE | 2016-12-11 10:17 | NUR ---
PAIN STATUS PT REPORTS DECREASE IN CHEST DISCOMFORT TO 6-7/10 AFTER FIRST SL NTG. BP 131/58. SECOND SL NTG ADM AT THIS TIME.
[2016-12-11 10:19] LABS: BASOPHILS % (AUTO) 0.4 % (0-2); EOSINOPHILS # (AUTO) 0.1 T/MM3 (0-0.5); EOSINOPHILS % (AUTO) 1.4 % (0-4); HGB - HEMOGLOBIN 8.8 GM/DL (13.5-17.5); IMMATURE GRANULOCYTE # (AUTO) 0.04 T/MM3 (0.00-0.03); IMMATURE GRANULOCYTE % (AUTO) 0.7 % (0.0-0.5); LYMPHOCYTES # (AUTO) 0.6 T/MM3 (1-4.8); LYMPHOCYTES % (AUTO) 11.4 % (23-45); MEAN CORPUSCULAR HGB 31.7 UUG (26-34); MEAN CORPUSCULAR HGB CONC(MCHC 32.6 GM/DL (31-37); MEAN CORPUSCULAR VOLUME 97.1 UM3 (80-100); MEAN PLATELET VOLUME 9.2 UM3 (9.4-12.4); MONOCYTES # (AUTO) 0.3 T/MM3 (0-0.8); NEUTROPHILS #(AUTO)-ABSOLUTE 4.4 T/MM3 (1.8-7.7); NEUTROPHILS % (AUTO) 80.1 % (33-66); RED BLOOD COUNT 2.78 M/MM3 (4.50-5.90); WBC - WHITE BLOOD COUNT 5.5 T/MM3 (4.5-11.0)
--- OUTSIDE RECORDS SUMMARY | 2016-12-11 10:20 | XMS REPORT ---
Author Author [employer] Organization Unknown Address Unknown Phone Unavailable Care Team Providers Care Md Urologist Name Role Phone MD TUCKER BRIAN PP [phone] Reason For Visit Chief Complaint G47.33 G25.81,SLEEP [...]
--- OUTSIDE RECORDS SUMMARY | 2016-12-11 10:21 | XMS REPORT ---
Author Author [employer] SYSTEM Organization Unknown Address Unknown Phone Unavailable Care Team Providers Care Cylinder Batcher Name Role Phone MD TUCKER BRIAN PP [phone] Reason For Visit Chief Complaint G47.33 G25.81,DIAGNOSTIC [...]
--- NOTE | 2016-12-11 10:22 | NUR ---
PAIN STATUS PT REPORTS PAIN REMAINS 6/10 AFTER SECOND SL NTG. BP READS 111/56. THIRD SL NTG HELD. PROVIDER NOTIFIED. NO NEW ORDERS REC'D.
[2016-12-11 10:23] LABS: INR 1.5 (0.76-1.04); PROTHROMBIN TIME 16.4 SEC (9.31-12.49)
--- NOTE | 2016-12-11 10:23 | NUR ---
XRAY PORTABLE XRAY AT BEDSIDE.
--- OUTSIDE RECORDS SUMMARY | 2016-12-11 10:25 | XMS REPORT ---
Author Author [employer] SYSTEM Organization Unknown Address Unknown Phone Unavailable Care Team Providers Care .Net Developer Name Role Phone MD TUCKER BRIAN PP [phone] Reason For Visit Chief Complaint G47.30 I27.2,DIAGNOSTIC [...]
[2016-12-11 10:28] LABS: ANION GAP 11 MEQ/L (5-15); BUN/CREATININE RATIO 29 RATIO (6-26); CHLORIDE 111 MEQ/L (98-107); CO2 - CARBON DIOXIDE 22 MEQ/L (22-30); CREATININE 1.1 MG/DL (0.8-1.5); GLOMERULAR FILTRATION RATE 63; GLUCOSE 102 MG/DL (75-110); POTASSIUM 4.5 MEQ/L (3.6-5); SODIUM 144 MEQ/L (134-144)
[2016-12-11] MEDS ORDERED: PANT40TA27 PO (10:31)
[2016-12-11] MEDS ORDERED: LOSA50TA52 PO (10:31)
[2016-12-11] MEDS ORDERED: METO25TA6 PO (10:31)
[2016-12-11] MEDS ORDERED: CALC1TAB16 PO (10:31)
[2016-12-11] MEDS ORDERED: PRAV10TA42 PO (10:31)
[2016-12-11] MEDS ORDERED: APIX5TAB PO (10:31)
[2016-12-11] MEDS ORDERED: ALLO300T2 PO (10:31)
[2016-12-11] MEDS ORDERED: FURO20TA4 PO (10:31)
[2016-12-11] MEDS ORDERED: THYR300T PO (10:31)
[2016-12-11] MEDS ORDERED: LEUP3.754 (10:38)
[2016-12-11 10:40] LABS: PROBNP 1950 PG/ML (0-175)
[2016-12-11] MEDS ORDERED: LEVOFLOXACIN 750 mg IVPB 750 MG in D5W 150 ML IV ONE (10:45)
--- NOTE | 2016-12-11 10:55 | NUR ---
STATUS PT APPEARS TO BE RESTING COMFORTABLY IN CART. PT INFORMED OF LEVAQUIN ORDERS AND INFUSION OF 90 MINUTES. DENIES NEEDS AT THIS TIME. CALL LIGHT WITHIN REACH. VSS, WILL CONTINUE TO MONITOR.
--- NOTE | 2016-12-11 11:01 | DI ---
Indication: ITS.REASON: CP Procedure: CHEST 1 VIEW: Encounter: Initial Comparison: Chest CT 04/11/2006 Technique: A single portable AP chest radiograph was obtained. Findings: Life support devices: Left pectoral dual-chamber pacer device in place. Right subclavian Port-A-Cath. Lungs and airways: Low lung volumes. Left basilar airspace opacities. Normal pulmonary vasculature. Pleura: Potential small left pleural effusion. No pneumothorax. Heart and mediastinum: Aortic atherosclerosis. The cardiomediastinal silhouette is otherwise normal. Osseous structures and soft tissues: No acute osseous abnormality is seen. Impression: Low lung volumes with potential small left pleural effusion and associated left basilar airspace opacities which could represent atelectasis versus an infectious/inflammatory process in the appropriate clinical setting. .
--- NOTE | 2016-12-11 12:30 | NUR ---
STATUS PT RESTING COMFORTABLY IN CART. DENIES NEEDS AT THIS TIME. LEVAQUIN INFUSION COMPLETE. CALL LIGHT WITHIN REACH. VSS, WILL CONTINUE TO MONITOR.
[2016-12-11] MEDS ORDERED: LEVO750T20 PO (12:42)
[2016-12-11 13:03] VITALS: BP 141/59; PULSE 81; RESP 18; TEMP 97.4; O2SAT 96
--- NOTE | 2016-12-11 13:03 | NUR ---
DISCHARGE WRITTEN INSTRUCTIONS WITH LEVAQUIN RX REVIEWED AND SENT WITH PT AND SPOUSE. PT AND SPOUSE VERBALIZE UNDERSTANDING OF DI AND MEDICATION, DENY QUESTIONS. PT REPORTS PAIN 3-4/10 ON DISMISSAL. PT AMBULATES OUT OF ER WITH STEADY GAIT ACCOMP BY FAMILY AT THIS TIME.
== END 2016-12-11 13:03 | disposition home or self-care (01) ==
LOC: ED 09:47
DX: J18.9 Pneumonia, unspecified organism (principal); I11.0 Hypertensive heart disease with heart failure; I50.9 Heart failure, unspecified
CPT/HCPCS: 71010; 80048; 83880; 84484; 85025; 85610; 93005; 96365; 96366; 99284; A9270; J1642; J1956; J7030; J7060